=== PATIENT | male | born 1945 | race Caucasian/White ===

== ENCOUNTER → 2016-07-16 | Outpatient (CLI) | payer OTHER, MEDICARE ==
[~2016-07-16] MED LIST: ALFU10TA2 PO; AMLO-110 PO; AVD5 PO
== END ==
LOC: C.LAB 12:15
PROVIDERS: ATTEND Urology
DX: N40.1 Benign prostatic hyperplasia with lower urinary tract symptoms (principal); R35.1 Nocturia

== ENCOUNTER → 2016-11-26 | Outpatient (CLI) | payer OTHER, MEDICARE ==
[~2016-11-26] MED LIST changes: -ALFU10TA2 PO; +ALFU10TA30 PO
--- NOTE | 2016-12-02 16:54 | PULMONARY FUNCTION TEST ---
CLINICAL DATA: 71-year-old male with a height of 71 inches and a weight of [address] Villarreal for evaluation of COPD and dyspnea. The patient smoked for 58 years and also had exposure to hazardous chemicals. Spirometry pre- and post-bronchodilator, lung volumes, and DLCO were performed. FINDINGS: Prebronchodilator spirometry demonstrates mild obstructive airways disease. FVC was 82% of predicted. FEV1 was 74% of predicted. [id number] was 52% of predicted. There was minimal change after inhaled bronchodilator. FVC improved 2% to 85% of predicted. FEV1 improved 4% to 77% of predicted. [id number] improved 3% to 54% of predicted. Lung volumes demonstrate a slight reduction expiratory reserve volume but otherwise a normal residual volume. DLCO is normal at 113% of predicted. IMPRESSION: Mild obstructive airways disease with no significant change after inhaled bronchodilator. Slight reduction in expiratory reserve volume on lung volume testing. Normal DLCO. MTDD
== END | disposition home or self-care (01) ==
LOC: C.RC 10:56
PROVIDERS: ATTEND Internal Medicine Cardiovascular Disease
DX: R06.09 Other forms of dyspnea (principal); J44.9 Chronic obstructive pulmonary disease, unspecified

== ENCOUNTER 2017-04-06 14:57 | Inpatient (IN) | payer OTHER, MEDICARE ==
[~2017-04-06] VITALS: Ht 180.3 cm; Wt 82.3 kg
[~2017-04-06 14:57] MED LIST changes: +ALFU10TA2 PO; -ALFU10TA30 PO; -AMLO-110 PO; +AMLO5TAB3 PO
[2017-04-06] MEDS ORDERED: DILTIAZEM BOLUS / DRIP IV STA ×2 (15:34→19:03)
[2017-04-06] MEDS ORDERED: SODIUM CHLORIDE 0.9% 500ML 500 ML IV STA (15:36)
[2017-04-06 15:47] LABS: BASO % 1.3 %; BASO ABS # 0.12 K/uL (0-0.2); EOS % 2.1 %; EOS ABS # 0.19 K/uL (0-0.5); HEMATOCRIT 50.5 % (42-52); HEMOGLOBIN 17.3 g/dL (14.0-18.0); IG# 0.01 K/uL (0.00-0.02); LYMPH % 26.5 %; LYMPH ABS # 2.37 K/uL (1.2-3.4); MEAN CELL VOLUME 89.1 fL (80-100); MEAN CORPUSCULAR HEMOGLOBIN 30.5 pg (25-34); MEAN CORPUSCULAR HGB CONC 34.3 g/dl (32-36); MEAN PLATELET VOLUME 9.8 fL (7.4-10.4); MONO % 6.1 %; MONO ABS # 0.55 K/uL (0.11-0.59); NEUT % 63.9 %; NEUT ABS # 5.72 K/uL (1.4-6.5); PLATELET COUNT 248 K/uL (130-400); RED CELL DISTRIBUTION WIDTH CV 14.2 % (11.5-14.5); RED CELL DISTRIBUTION WIDTH SD 46.6 fL (36.4-46.3); WHITE BLOOD COUNT 8.96 K/uL (4.8-10.8)
--- NOTE | 2017-04-06 15:53 | DIAGNOSTIC IMAGING REPORT ---
CHEST ONE VIEW PORTABLE HISTORY: 71 years-old Male Chest Pain acute atypical chest pain COMPARISON: Chest and rib radiographs 09/09/2012 TECHNIQUE: Portable upright AP view of the chest FINDINGS: Cardiac silhouette is within normal limits. Left subclavian pacer is noted with leads overlying the right atrium and right ventricle, new from comparison study. There is no pneumothorax, pleural effusion, focal airspace consolidation or overt pulmonary edema. Linear subsegmental opacity of the left lung base is noted. Bones of the chest appear grossly intact. IMPRESSION: Linear subsegmental atelectasis or scarring of the left lung base with otherwise negative chest. The above report was generated using voice recognition software. It may contain grammatical, syntax or spelling errors. Electronically signed by: Edison Holder M.D. 04/06/2017 3:51 PM Dictated Date/Time: 04/06/2017 3:49 PM
[2017-04-06] MEDS ORDERED: DILTIAZEM HCL INJ 125 MG in DEXTROSE 5% 100ML IV PRN (16:00)
[2017-04-06] MEDS ORDERED: DILTIAZEM BOLUS FROM BAG IV ONE (16:00)
[2017-04-06] MEDS ORDERED: DUTA0.5C PO (16:05)
[2017-04-06] MEDS ORDERED: TPRSR/25 PO (16:05)
[2017-04-06] MEDS ORDERED: NIFE30TA83 PO (16:05)
[2017-04-06] MEDS ORDERED: MISCCAP80 PO (16:05)
[2017-04-06 16:08] LABS: BLOOD UREA NITROGEN 28 mg/dl (7-18); CALCIUM 9.4 mg/dl (8.5-10.1); CARBON DIOXIDE 25 mmol/L (21-32); GLUCOSE 103 mg/dl (70-99); POTASSIUM 3.9 mmol/L (3.5-5.1); SODIUM 138 mmol/L (136-145)
[2017-04-06 16:13] LABS: CKMB 1.3 ng/ml (0.5-3.6)
[2017-04-06] MEDS ORDERED: DILTIAZEM HCL 5 MG/ML 5 ML VIAL IV STA (17:47)
[2017-04-06] MEDS ORDERED: ALUMINUM/MAGNESIUM/SIMETH (MAALOX MAX) 30 ML UDC PO PRN (18:15)
[2017-04-06] MEDS ORDERED: MAGNESIUM HYDROXIDE SUSP 30 ML UDC PO PRN (18:15)
[2017-04-06] MEDS ORDERED: ACETAMINOPHEN 325 MG TAB PO PRN (18:15)
[2017-04-06] MEDS ORDERED: ONDANSETRON INJ 2 MG/ML 2 ML VIAL IV PRN (18:15)
[2017-04-06] MEDS ORDERED: POLYETHYLENE (MIRALAX) 17 GM PACK PO PRN (18:15)
--- NOTE | 2017-04-06 19:00 | History and Physical ---
History & Physical Date & Time of Service: Apr 06, 2017 at 18:59 Chief Complaint: Weak, Irregular Heartbeat, Cardiac Hx, Pacemaker Primary Care Physician: Dany Rodriguez M.D. History of Present Illness Source: patient Mr. Ocampo is a 71 y/o male with PMHx of Tachyarrhythmias, Sinus Pause S/P Pacer , and BPH who presents to the ED complaining of an irregular heartbeat x 2 hours prior to arrival. He states he had an achy chest pressure and could tell his heart rate was fast. He felt his pulse and states it seemed very erratic and uses electronic monitor but states he cannot get a pulse rate reading. He does report intermittent tachyarrhythmias that have been ongoing. He states his pulse can get in the 150s but these episodes normally only last a few seconds and spontaneously abort. He denies ever being told he has atrial fibrillation. He states his director life sciences has mentioned implantation of a defibrillator but the patient reports he has been putting this off. He follows with Dr. Villarreal. He reported initial chest discomfort, generalized weakness, and shortness of breath when his heart rate was rapid. He states these are all currently resolved since initiating diltiazem. In the ED, patient was started on diltiazem bolus and drip and did spontaneously convert to sinus rhythm with pacing. Discussed anticoagulation, and he denies any past bleeding episodes or previous use of anticoagulation. Heparin drip was initiated. TSH mildly elevated which may be normal given age. Creatinine is 1.8 with very limited reference labs. No direct source of infection. Electrolytes are within normal limits. Past Medical/Surgical History 1. BPH 2. Sinus Pause S/P Pacer 3. Tachyarrhythmias 4. H/O C. Diff Family History Family history was reviewed; no changes noted. Social History Smoking Status: Current Every Day Smoker Smokeless Tobacco Use: No Alcohol Use: none Drug Use: none Immunizations History of Influenza Vaccine: N/A History of Tetanus Vaccine?: Yes History of Pneumococcal: No History of Hepatitis B Vaccine: No Multi-Drug Resistant Organisms History of MDRO: No Allergies Coded Allergies: No Known Allergies (Verified , 04/06/17) Home Medications Scheduled Alfuzosin Hcl (Uroxatral), 10 MG PO HS Dutasteride (Avodart), 0.5 MG PO QPM Metoprolol Succinate (Metoprolol Succinate ER), 25 MG PO QPM Nifedipine Ext Rel (Procardia Xl Ext Rel), 30 MG PO QPM Probiotic Product (Probiotic), 1 CAP PO DAILY Review of Systems Constitutional: No fever, No chills ENT: No nasal symptoms Respiratory: + shortness of breath (RESOLVED), No cough, No wheezing Cardiovascular: + chest pain (pressure/ache and central chest - currently resolved), + palpitations, No orthopnea Abdomen: No pain, No nausea, No vomiting, No diarrhea, No constipation Musculoskeletal: No swelling, No calf pain Genitourinary - Male: No dysuria Hematologic / Lymphatic: No abnormal bleeding/bruising Physical Exam Vital Signs Date Time Temp Pulse Resp B/P (MAP) Pulse Ox O2 Delivery O2 Flow Rate FiO2 04/06/17 18:36 97 28 98 04/06/17 18:31 101 20 137/106 97 04/06/17 18:26 89 18 96 04/06/17 18:21 100 21 96 04/06/17 18:16 99 21 113/77 95 04/06/17 18:11 113 20 93 04/06/17 18:06 98 18 95 04/06/17 18:01 95 20 102/68 95 Room Air 04/06/17 17:56 106 21 97 04/06/17 17:51 107 18 95 04/06/17 17:46 113 16 117/89 96 04/06/17 17:41 105 24 96 04/06/17 17:36 111 20 95 04/06/17 17:31 108 21 159/137 96 04/06/17 17:26 88 19 96 04/06/17 17:21 107 15 97 04/06/17 17:16 100 16 126/69 95 04/06/17 17:11 95 20 95 04/06/17 17:06 101 15 95 04/06/17 17:01 90 15 86/70 94 04/06/17 16:56 104 16 94 04/06/17 16:51 116 19 95 04/06/17 16:46 145/69 04/06/17 16:45 105 16 94 04/06/17 16:40 115 16 96 04/06/17 16:35 109 18 94 04/06/17 16:31 98/71 04/06/17 16:30 110 22 97 04/06/17 16:20 104 26 95 04/06/17 16:16 129/80 04/06/17 16:15 115 19 95 04/06/17 16:10 120 18 90 04/06/17 16:06 130 26 153/93 95 Room Air 04/06/17 15:30 153 19 146/88 97 Room Air 04/06/17 15:19 166 04/06/17 15:15 97 Room Air 04/06/17 15:15 97 Room Air 04/06/17 15:06 156 24 181/106 98 Room Air General Appearance: WD/WN, no apparent distress Head: normocephalic, atraumatic Eyes: sclerae normal ENT: hearing grossly normal Neck: supple, no JVD, trachea midline Respiratory/Chest: lungs clear, normal breath sounds, no respiratory distress, no accessory muscle use Cardiovascular: no gallop, no murmur, + irregularly irregular Abdomen/GI: normal bowel sounds, non tender, soft Extremities/Musculoskelatal: no calf tenderness, no pedal edema Neurologic/Psych: alert, oriented x 3 Skin: normal color, warm/dry Diagnostics Laboratory Results Results Past 24 Hours Test 04/06/17 15:20 Range/Units White Blood Count 8.96 4.8-10.8 K/uL Red Blood Count 5.67 4.7-6.1 M/uL Hemoglobin 17.3 14.0-18.0 g/dL Hematocrit 50.5 42-52 % Mean Corpuscular Volume 89.1 80-100 fL Mean Corpuscular Hemoglobin 30.5 25-34 pg Mean Corpuscular Hemoglobin Concent 34.3 32-36 g/dl Platelet Count 248 130-400 K/uL Mean Platelet Volume 9.8 7.4-10.4 fL Neutrophils (%) (Auto) 63.9 % Lymphocytes (%) (Auto) 26.5 % Monocytes (%) (Auto) 6.1 % Eosinophils (%) (Auto) 2.1 % Basophils (%) (Auto) 1.3 % Neutrophils # (Auto) 5.72 1.4-6.5 K/uL Lymphocytes # (Auto) 2.37 1.2-3.4 K/uL Monocytes # (Auto) 0.55 0.11-0.59 K/uL Eosinophils # (Auto) 0.19 0-0.5 K/uL Basophils # (Auto) 0.12 0-0.2 K/uL RDW Standard Deviation 46.6 36.4-46.3 fL RDW Coefficient of Variation 14.2 11.5-14.5 % Immature Granulocyte % (Auto) 0.1 % Immature Granulocyte # (Auto) 0.01 0.00-0.02 K/uL Sodium Level 138 136-145 mmol/L Potassium Level 3.9 3.5-5.1 mmol/L Chloride Level 105 98-107 mmol/L Carbon Dioxide Level 25 21-32 mmol/L Anion Gap 8.0 3-11 mmol/L Blood Urea Nitrogen 28 7-18 mg/dl Creatinine 1.80 0.60-1.40 mg/dl Est Creatinine Clear Calc Drug Dose 42.2 ml/min Estimated GFR () 42.3 Estimated GFR (Non- 36.5 BUN/Creatinine Ratio 15.5 10-20 Random Glucose 103 70-99 mg/dl Calcium Level 9.4 8.5-10.1 mg/dl Total Creatine Kinase 85 39-308 U/L Creatine Kinase MB 1.3 0.5-3.6 ng/ml Creatine Kinase MB Ratio 1.5 0-3.0 Troponin I < 0.015 0-0.045 ng/ml Diagnostic Radiology CHEST ONE VIEW PORTABLE FINDINGS: Cardiac silhouette is within normal limits. Left subclavian pacer is noted with leads overlying the right atrium and right ventricle, new from comparison study. There is no pneumothorax, pleural effusion, focal airspace consolidation or overt pulmonary edema. Linear subsegmental opacity of the left lung base is noted. Bones of the chest appear grossly intact. IMPRESSION: Linear subsegmental atelectasis or scarring of the left lung base with otherwise negative chest. EKG Atrial fibrillation with rapid ventricular response Septal infarct , age undetermined Abnormal ECG When compared with ECG of 15-AUG-2009 09:58, Atrial fibrillation has replaced Sinus rhythm Vent. rate has increased BY 81 BPM Septal infarct is now Present ST now depressed in Inferior leads ST now depressed in Anterolateral leads T wave inversion now evident in Lateral leads Impression Assessment and Plan Mr. Ocampo is a 71 y/o male with PMHx of Tachyarrhythmias, Sinus Pause S/P Pacer , and BPH who presents to the ED complaining of an irregular heartbeat x 2 hours prior to arrival. Found to be in Atrial Fibrillation. Possible New Onset Atrial Fibrillation: - He reports intermittent tachyarrhythmias with rates going as high as 150 but normally self abort - follows with Dr. Villarreal and does have pacemaker in place - could consider pacemaker interrogation in the AM - Admit to telemetry for rhythm monitoring and trend cardiac enzymes - He was initially placed on diltiazem bolus/drip and did ultimately converted to sinus rhythm with pacing - Will hold nifedipine and place him on diltiazem ER 120 mg daily with hold parameters - Started heparin drip - uncertain if his tachyarrhythmias were atrial fibrillation versus other rhythm - likely could be placed on NOAC - Obtain updated echo - Consult cardiology - appreciate recommendations and further intervention Possible STEPHANIE: - Limited reference labs for comparison - fluids given in ED and will continue to have fluids ran with heparin - Continue to monitor with BMP in the AM - if necessary could add further fluids BPH: - Alfuzosin 10 mg daily and Avodart 0.5 mg daily DVT Prophylaxis: Heparin drip Code Status: Full resuscitation Disposition: - Appreciate further intervention by cardiology - possible DC next 1-2 days - Possible good candidate for NOAC - would need insurance evaluation for cost I personally interviewed and examined the patient. I agree with history of present illness and physical exam mentioned above, I also performed my own history taking and examination. Past medical history and review of system has been obtained by myself I reviewed all pertinent labs and studies Reviewed current medications I discussed and formulated of the assessment and plan mentioned above as per discussion with Yasmin TIGRE Please refer to the Summary mentioned below. 71 years old man presented to the ED with palpitations, was found to have atrial fibrillation new onset Started on Cardizem drip and heparin drip Shortly converted to sinus rhythm General Appearance: not in acute distress Eyes: normal Sclerae, extraocular muscle intact ENT: hearing grossly normal Neck: supple Respiratory/Chest: normal air entry especially bilateral ,no respiratory distress, no accessory muscle use Cardiovascular: Irregular irregularity, no systolic murmur Abdomen: non tender, soft, no masses Extremities: no edema Neurologic/Psychiatric: Awake alert oriented times place and person moves all extremities sensation intact cranial nerves II-12 appear to be intact Skin: normal color, warm/dry, no rash Rudolph Guerin MD, [facility] Level of Care Telemetry Resuscitation Status FULL RESUSCITATION VTE Prophylaxis VTE Risk Assessment Done? Y/N: Yes Risk Level: Moderate Given or contraindicated: Other Anticoagulation (Heparin gtt)
[2017-04-06] MEDS ORDERED: METOPROLOL TARTRATE 1 MG/ML VIAL IV PRN (19:15)
[2017-04-06] MEDS ORDERED: AVODART~ORDER AWAITING ACTION SCH (20:00)
[2017-04-06 20:53] LABS: PTT PATIENT 28.2 SECONDS (21.0-31.0)
[2017-04-06] MEDS ORDERED: ALFUZosin TAB 10 MG TAB PO SCH (21:00)
[2017-04-06] MEDS ORDERED: DUTASTERIDE 0.5MG PO SCH (21:00)
[2017-04-06] MEDS ORDERED: METOPROLOL SUCC 25MG EXT REL TAB PO SCH (21:00)
[2017-04-06] MEDS ORDERED: HEPARIN IV BOLUS 7,000 UNIT in SYRINGE 0 ML IV ONE (21:15)
[2017-04-06 21:40] VITALS: BP 121/77; PULSE 64; TEMP 36.9; O2SAT 95; Ht 180.3 cm; Wt 82.3 kg
--- NOTE | 2017-04-06 21:40 | NUR ---
A/ID: Patient admitted into 240-2 from ER for new onset AFIB. and daughter present in room. He is AAOx4, pleasant and cooperative. He is denying any complaints or symptoms at this time. VSS. Paced with HR in 60s. Lungs are clear on room air. No chest pain or palpitations. No edema. Tolerating diet. Urinal at bedside. Ambulates with a steady gait, states he walks 2 hours a day. IV intact and patent. No skin issues noted. Patient oriented to the room and call [facility] and was instructed not to get up without staff present. Patient and family updated on plans for the night including labs and vitals. They were educated on all new medications. He was instructed to use call [facility] immediately of any returning symptoms. Patient lives at home with , very active. No D/C needs identified at this time.
[2017-04-06 21:42] VITALS: O2SAT 94
--- NOTE | 2017-04-06 22:22 | EMERGENCY ROOM VISIT NOTE ---
History Report prepared by Luis Armandoibgiancarlo: Justina Grajeda Under the Supervision of: Dr. Tony Mays D.O. First contact with patient: 15:19 Chief Complaint: IRREGULAR HEARTBEAT Stated Complaint: WEAK, IRREGULAR HEARTBEAT, CARDIAC HX, PACEMAKER History of Present Illness The patient is a 71 year old male who presents to the Emergency Room with complaints of constant irregular heartbeat for 1.5 hours. The patient states that he has had before, but it usually goes away in a minute. He states that he has a pacemaker placed, but not defibrillator. He states that it was originally placed for his heart pausing. The patient states that he checked his pulse on the blood pressure machine he has at home and it wouldn't even read it. The patient complains of some weakness and a little shortness of breath occurring right before he came in. The patient denies headache, chest pain, nausea, vomiting, diarrhea, cough, congestion, and fatigue. He denies ever knowing that he has had atrial fibrillation or atrial flutter. He notes that he felt normal when he woke up this morning. He notes that he does take a beta karma. Source of History: patient Onset: 1.5 hours ago Position: other (global) Quality: other (fast) Timing: constant Associated Symptoms: + SOB, + weakness, No headache, No cough, No chest pain , No nausea, No vomiting, No diarrhea, No fatigue Note: The patient denies congestion. Review of Systems See HPI for pertinent positives & negatives. A total of 10 systems reviewed and were otherwise negative. Past Medical & Surgical Medical Problems: (1) Atrial fibrillation with RVR (2) Hx of cardiac pacemaker Family History No pertinent family history Social History Smoking Status: Current Every Day Smoker Marital Status: Housing Status: lives with significant other Occupation Status: retired Current/Historical Medications Scheduled Alfuzosin Hcl (Uroxatral), 10 MG PO HS Dutasteride (Avodart), 0.5 MG PO QPM Metoprolol Succinate (Metoprolol Succinate ER), 25 MG PO QPM Nifedipine Ext Rel (Procardia Xl Ext Rel), 30 MG PO QPM Probiotic Product (Probiotic), 1 CAP PO DAILY Allergies Coded Allergies: No Known Allergies (Verified , 04/06/17) Physical Exam Vital Signs Date Time Temp Pulse Resp B/P (MAP) Pulse Ox O2 Delivery O2 Flow Rate FiO2 04/06/17 18:41 108 24 98 18 18:36 97 28 98 18 18:31 101 20 137/106 97 18 18:26 89 18 96 04/06/17 18:21 100 21 96 18 18:16 99 21 113/77 95 04/06/17 18:11 113 20 93 18 18:06 98 18 95 04/06/17 18:01 95 20 102/68 95 Room Air 04/06/17 17:56 106 21 97 04/06/17 17:51 107 18 95 04/06/17 17:46 113 16 117/89 96 04/06/17 17:41 105 24 96 04/06/17 17:36 111 20 95 04/06/17 17:31 108 21 159/137 96 04/06/17 17:26 88 19 96 04/06/17 17:21 107 15 97 04/06/17 17:16 100 16 126/69 95 04/06/17 17:11 95 20 95 04/06/17 17:06 101 15 95 04/06/17 17:01 90 15 86/70 94 04/06/17 16:56 104 16 94 04/06/17 16:51 116 19 95 04/06/17 16:46 145/69 04/06/17 16:45 105 16 94 04/06/17 16:40 115 16 96 04/06/17 16:35 109 18 94 04/06/17 16:31 98/71 04/06/17 16:30 110 22 97 04/06/17 16:20 104 26 95 04/06/17 16:16 129/80 04/06/17 16:15 115 19 95 04/06/17 16:10 120 18 90 04/06/17 16:06 130 26 153/93 95 Room Air 04/06/17 15:30 153 19 146/88 97 Room Air 04/06/17 15:19 166 04/06/17 15:15 97 Room Air 04/06/17 15:15 97 Room Air 04/06/17 15:06 156 24 181/106 98 Room Air Physical Exam GENERAL: Sitting up in bed, alert, well appearing, well nourished, no distress, non-toxic EYE EXAM: normal conjunctiva. OROPHARYNX: no exudate, no erythema, lips, buccal mucosa, and tongue normal and mucous membranes are moist NECK: supple, no nuchal rigidity, no adenopathy, non-tender LUNGS: Clear to auscultation. Normal chest wall mechanics HEART: no murmurs, tachycardic, irregularly irregular. ABDOMEN: abdomen soft, non-tender, normo-active bowel sounds, no masses, no rebound or guarding. BACK: Back is symmetrical on inspection and there is no deformity, no midline tenderness, no CVA tenderness. SKIN: no rashes and no bruising UPPER EXTREMITIES: upper extremities are grossly normal. LOWER EXTREMITIES: No pitting edema. Calves are equal bilaterally. NEURO EXAM: Normal sensorium, cranial nerves II-XII grossly intact, normal speech, no gross weakness of arms, no gross weakness of legs. Medical Decision & Procedures ER Provider Diagnostic Interpretation: Radiology results as stated below per my review and the radiologist's interpretation: CHEST ONE VIEW PORTABLE HISTORY: 71 years-old Male Chest Pain acute atypical chest pain COMPARISON: Chest and rib radiographs 09/09/2012 TECHNIQUE: Portable upright AP view of the chest FINDINGS: Cardiac silhouette is within normal limits. Left subclavian pacer is noted with leads overlying the right atrium and right ventricle, new from comparison study. There is no pneumothorax, pleural effusion, focal airspace consolidation or overt pulmonary edema. Linear subsegmental opacity of the left lung base is noted. Bones of the chest appear grossly intact. IMPRESSION: Linear subsegmental atelectasis or scarring of the left lung base with otherwise negative chest. The above report was generated using voice recognition software. It may contain grammatical, syntax or spelling errors. Electronically signed by: Edison Holder M.D. 04/06/2017 3:51 PM Dictated Date/Time: 04/06/2017 3:49 PM Laboratory Results 04/06/17 15:20 Red Blood Count 5.67, Mean Corpuscular Volume 89.1, Mean Corpuscular Hemoglobin 30.5, Mean Corpuscular Hemoglobin Concent 34.3, Mean Platelet Volume 9.8, Neutrophils (%) (Auto) 63.9, Lymphocytes (%) (Auto) 26.5, Monocytes (%) (Auto) 6.1, Eosinophils (%) (Auto) 2.1, Basophils (%) (Auto) 1.3, Neutrophils # (Auto) 5.72, Lymphocytes # (Auto) 2.37, Monocytes # (Auto) 0.55, Eosinophils # (Auto) 0.19, Basophils # (Auto) 0.12 04/06/17 15:20 Test 04/06/17 15:20 White Blood Count 8.96 K/uL (4.8-10.8) Red Blood Count 5.67 M/uL (4.7-6.1) Hemoglobin 17.3 g/dL (14.0-18.0) Hematocrit 50.5 % (42-52) Mean Corpuscular Volume 89.1 fL (80-100) Mean Corpuscular Hemoglobin 30.5 pg (25-34) Mean Corpuscular Hemoglobin Concent 34.3 g/dl (32-36) Platelet Count 248 K/uL (130-400) Mean Platelet Volume 9.8 fL (7.4-10.4) Neutrophils (%) (Auto) 63.9 % Lymphocytes (%) (Auto) 26.5 % Monocytes (%) (Auto) 6.1 % Eosinophils (%) (Auto) 2.1 % Basophils (%) (Auto) 1.3 % Neutrophils # (Auto) 5.72 K/uL (1.4-6.5) Lymphocytes # (Auto) 2.37 K/uL (1.2-3.4) Monocytes # (Auto) 0.55 K/uL (0.11-0.59) Eosinophils # (Auto) 0.19 K/uL (0-0.5) Basophils # (Auto) 0.12 K/uL (0-0.2) RDW Standard Deviation 46.6 fL (36.4-46.3) RDW Coefficient of Variation 14.2 % (11.5-14.5) Immature Granulocyte % (Auto) 0.1 % Immature Granulocyte # (Auto) 0.01 K/uL (0.00-0.02) Activated Partial Thromboplast Time 28.2 SECONDS (21.0-31.0) Partial Thromboplastin Ratio 1.1 Anion Gap 8.0 mmol/L (3-11) Est Creatinine Clear Calc Drug Dose 42.2 ml/min Estimated GFR () 42.3 Estimated GFR (Non- 36.5 BUN/Creatinine Ratio 15.5 (10-20) Calcium Level 9.4 mg/dl (8.5-10.1) Total Creatine Kinase 85 U/L (39-308) Creatine Kinase MB 1.3 ng/ml (0.5-3.6) Creatine Kinase MB Ratio 1.5 (0-3.0) Thyroid Stimulating Hormone (TSH) 5.090 uIu/ml (0.300-4.500) Laboratory results per my review. Medications Administered Medications (Trade) Dose Ordered Sig/Henry Route Start Time Stop Time Status Last Admin Dose Admin Sodium Chloride 500 ml @ 999 mls/hr Q31M STAT IV 04/06/17 15:36 04/06/17 16:06 DC 04/06/17 16:00 999 MLS/HR Diltiazem HCl (Cardizem Bolus From Bag) 15 mg ONE ONCE IV 04/06/17 16:00 04/06/17 16:01 DC 04/06/17 16:00 15 MG Diltiazem HCl 125 mg/Dextrose 125 ml @ 0 mls/hr Q0M PRN IV 04/06/17 16:00 05/06/17 15:59 04/06/17 16:04 5 MLS/HR Diltiazem HCl (Cardizem Inj) 10 mg NOW STAT IV 04/06/17 17:47 04/06/17 17:49 DC 04/06/17 17:56 10 MG ECG Indication: tachycardia Rate (beats per minute): 143 Rhythm: atrial fibrillation (with RVR) Findings: Q waves (Septal), ST depression (Lateral), other (normal axis) ED Course ED COURSE: Vital signs were reviewed and showed tachycardic The patients medical record was reviewed The above diagnostic studies were performed and reviewed. ED treatments and interventions as stated above. 1526: The patient was evaluated in room B4B. A complete history and physical examination was performed. 1534: Ordered Diltiazem HCl 1 ea IV. 1536: Ordered NSS 500 ml @ 999 mls/hr IV. 1600: Ordered Diltiazem HCl 125 mg/Dextrose 125 ml @ 0 mls/hr Protocol PRN IV titration, Diltiazem HCl 15 mg IV. 1645: Upon reevaluation, the patient is doing well.I discussed my findings with the patient and he understands and agrees with the treatment plan. 1650: I reviewed the patient's case with Dr. Medeiros. He will evaluate the patient for further management. 174: Ordered Diltiazem HCl 10 mg IV. Based on the patients age, coexisting illnesses, exam and lab findings the decision to treat as an inpatient was made. The patient remained stable while under my care. The patient will be evaluated for further management. Medical Decision Differential diagnoses includes but is not limited to acute coronary syndrome, myocardial infarction, pericarditis, pulmonary embolus, aortic dissection, pneumonia, pneumothorax, musculoskeletal, shingles, esophageal. Patient is a 71-year-old male who presents to ER for feeling very weak and so a short of breath. He notes he feels his heart racing. On exam he is tachycardic. Heart rates in the 150s. Systolic blood pressures were in the 190s. EKG shows A. fib with RVR and ST depressions in the lateral leads. Patient had no other complaints. He was given Cardizem bolus 10 mg IV and a drip started at 5 mg. Heart rate trended up to low 100s. Patient was monitored closely for close to 3 hours. His heart rate did trend back up and was given another dose of IV Cardizem 10 mg. CBC along with the MP shows a creatinine 1.8. Troponin was negative. TSH was slightly elevated. INR was normal. Chest x-ray unremarkable. Patient was updated at bedside and he was admitted to internal medicine for A. fib with RVR any rate control following 2 Cardizem boluses and drip. Medication Reconcilliation Current Medication List: was personally reviewed by me Blood Pressure Screening Patient's blood pressure: Normal blood pressure Blood pressure disposition: Did not require urgent referral Consults Time Called: 164 Consulting Physician: Dr. Medeiros Returned Call: 1650 I reviewed the patient's case with Dr. Medeiros. He will evaluate the patient for further management. Impression Primary Impression: Atrial fibrillation with RVR Critical Care I have personally spent 75 minutes of critical care time in the direct management of this patient. This includes bedside care, interpretation of diagnostic studies, and testing, discussion with consultants, patient, and family members, and other required patient management activities. This 75 minutes is in excess of all separately billable procedures. Scribe Attestation The scribe's documentation has been prepared under my direction and personally reviewed by me in its entirety. I confirm that the note above accurately reflects all work, treatment, procedures, and medical decision making performed by me. Departure Information Dispostion Being Evaluated By Hospitalist Referrals Dany Rodriguez M.D. (PCP) Patient Instructions My [facility]
[2017-04-06] MEDS: HEPARIN 25,000 UNIT/500ML D5W 500 ML IV PRN (22:27)
--- NOTE | 2017-04-06 22:47 | NUR ---
Home dose of Avodart sent to pharmacy via secure code of [id number]. Patient is aware of this.
--- NOTE | 2017-04-06 22:51 | NUR ---
Amie Hoffman aware that patient has remained Paced in 60s since arrival from ER. She will d/c drip and place on oral diltiazem for the morning.
--- NOTE | 2017-04-06 23:56 | NUR ---
Home supply of Avodart placed in locked medicine cabinet in room. Patient is aware.
[2017-04-06 23:59] VITALS: BP 123/65; PULSE 60; TEMP 36.7; O2SAT 92
[2017-04-07 03:15] VITALS: BP 134/71; PULSE 61; TEMP 36.6; O2SAT 95
[2017-04-07 03:53] LABS: BASO % 1.3 %; BASO ABS # 0.12 K/uL (0-0.2); EOS % 3.7 %; EOS ABS # 0.33 K/uL (0-0.5); HEMATOCRIT 40.8 % (42-52); HEMOGLOBIN 13.9 g/dL (14.0-18.0); IG# 0.01 K/uL (0.00-0.02); LYMPH % 47.4 %; LYMPH ABS # 4.28 K/uL (1.2-3.4); MEAN CELL VOLUME 90.1 fL (80-100); MEAN CORPUSCULAR HEMOGLOBIN 30.7 pg (25-34); MEAN CORPUSCULAR HGB CONC 34.1 g/dl (32-36); MEAN PLATELET VOLUME 9.5 fL (7.4-10.4); MONO ABS # 0.54 K/uL (0.11-0.59); NEUT % 41.5 %; NEUT ABS # 3.75 K/uL (1.4-6.5); PLATELET COUNT 207 K/uL (130-400); RED CELL DISTRIBUTION WIDTH CV 14.4 % (11.5-14.5); RED CELL DISTRIBUTION WIDTH SD 47.3 fL (36.4-46.3); WHITE BLOOD COUNT 9.03 K/uL (4.8-10.8)
--- NOTE | 2017-04-07 04:00 | NUR ---
A. Patient reassessed, resting in bed. No changes at this time. He is denying any needs or complaints. VSS. Paced with HR in 60s. Voiding in urinal. Repositioning on own. IV intact with Heparin infusing. He was reminded to use call [facility] if needing anything.
[2017-04-07 04:09] LABS: CALCIUM 8.2 mg/dl (8.5-10.1); CREATININE 1.36 mg/dl (0.60-1.40); POTASSIUM 4.2 mmol/L (3.5-5.1)
[2017-04-07 04:14] LABS: PTT PATIENT 111.9 SECONDS (21.0-31.0)
[2017-04-07] MEDS: HEPARIN 25,000 UNIT/500ML D5W 500 ML IV PRN (05:16)
[2017-04-07 07:38] VITALS: BP 130/66; PULSE 59; TEMP 36.5; O2SAT 95
--- NOTE | 2017-04-07 08:00 | NUR ---
A: denies pain. c/o nausea, states it is not unusual for him to have nausea in the mornings. see Emar for Zofran administration. did consume 100% breakfast. IV Heparin infusing at 24ml/hr via 20 jelco right FA, site clear. 18 jelco intact RAC, site clear. denies difficulty voiding.
[2017-04-07] MEDS ORDERED: LACTOBACILLUS ACIDOPHILUS (FLORANEX) TAB PO SCH (09:00)
[2017-04-07] MEDS ORDERED: DILTIAZEM HCL 120 MG ER CAP PO SCH (09:00)
--- NOTE | 2017-04-07 09:10 | NUR ---
A: states nausea resolved. off floor via wheelchair for echo.
[2017-04-07 09:17] VITALS: BP 130/66; PULSE 59; TEMP 36.5; O2SAT 95
--- NOTE | 2017-04-07 10:15 | NUR ---
A: returned from echo.
[2017-04-07 11:13] VITALS: BP 117/55; PULSE 61; TEMP 36.6; O2SAT 95
--- NOTE | 2017-04-07 11:56 | ECHOCARDIOGRAM REPORT ---
*NOTICE TO RECEIVING CONSTITUTION PARTY AGENCY This information is strictly Confidential and protected under [place] law. [place] law prohibits you from making any further disclosure of this information unless further disclosure is expressly permitted by the written consent of the person to whom it pertains or is authorized by law. A general authorization for the release of medical or other information is not sufficient for this purpose. Hospital accepts no responsibility if the information is made available to any other person, INCLUDING THE PATIENT. Interpretation Summary * Name: TUTU AMOR Study Date: 04/07/2017 09:24 AM BP: 130/66 mmHg * Patient Location: [facility] HR: 60 * : 1945 (M/d/yyyy) Gender: Male Height: 71 in * Age: 71 yrs Ethnicity: [place] Weight: 201 lb * Ordering Physician: Amie Hoffman * Referring Physician: Srinivasan Villarreal * Performed By: Karen Martinez RCS * * Reason For Study: A-FIB * BSA: 2.1 m2 * -- Conclusions -- * There is borderline concentric left ventricular hypertrophy. * Left ventricular systolic function is normal. * Diastolic dysfunction, Grade II, consistent with elevated left atrial pressure. * Borderline left atrial enlargement. * Mild aortic regurgitation. * There is mild mitral regurgitation. * Right ventricular systolic pressure is normal. Procedure Details * A complete two-dimensional transthoracic echocardiogram was performed (2D, M-mode, Doppler and color flow Doppler). Left Ventricle * The left ventricle is normal in size. * There is borderline concentric left ventricular hypertrophy. * Left ventricular systolic function is normal. * Diastolic dysfunction, Grade II, consistent with elevated left atrial pressure. * The left ventricular wall motion is normal. Right Ventricle * The right ventricle is normal in size and function. Atria * Borderline left atrial enlargement. * Right atrial size is normal. Mitral Valve * The mitral valve leaflets appear thickened, but open well. * There is mild mitral regurgitation. Tricuspid Valve * The tricuspid valve is not well visualized, but is grossly normal. * There is trace tricuspid regurgitation. * Right ventricular systolic pressure is normal. Aortic Valve * The aortic valve is normal in structure and function. * The aortic valve is trileaflet. * There is some calcification involving the non coronary cusp * Mild aortic regurgitation. * There is an eccentric jet of aortic insufficiency directed against the anterior mitral leaflet. Great Vessels * The aortic root is normal size. Pericardium/Pleural * There is no pericardial effusion. Great Vessels * Normal inferior vena cava diameter and respiratory variation suggests normal central venous pressure. MMode 2D Measurements and Calculations IVSd 1.4 cm IVSs 1.9 cm LVIDd 5.1 cm LVIDs 3.4 cm LVPWd 1.2 cm LVPWs 1.7 cm IVS/LVPW 1.2 FS 34.2 % EDV(Teich) 125.9 ml ESV(Teich) 46.8 ml EF(Teich) 62.8 % EDV(cubed) 135.5 ml ESV(cubed) 38.6 ml EF(cubed) 71.5 % % IVS thick 36.2 % % LVPW thick 49.1 % LV mass(C)d 266.4 grams LV mass(C)dI 126.1 grams/m\S\2 LV mass(C)s 255.1 grams LV mass(C)sI 120.7 grams/m\S\2 SV(Teich) 79.1 ml SI(Teich) 37.4 ml/m\S\2 SV(cubed) 96.9 ml SI(cubed) 45.8 ml/m\S\2 Ao root diam 3.4 cm Ao root area 8.9 cm\S\2 LA dimension 3.7 cm LA/Ao 1.1 LVOT diam 2.0 cm LVOT area 3.2 cm\S\2 LVAd ap4 33.3 cm\S\2 LVLd ap4 7.9 cm EDV(MOD-sp4) 114.7 ml EDV(sp4-el) 120.0 ml LVAs ap4 20.1 cm\S\2 LVLs ap4 6.8 cm ESV(MOD-sp4) 49.2 ml ESV(sp4-el) 50.1 ml EF(MOD-sp4) 57.1 % EF(sp4-el) 58.3 % LVAd ap2 35.7 cm\S\2 LVLd ap2 8.2 cm EDV(MOD-sp2) 130.1 ml EDV(sp2-el) 132.8 ml LVAs ap2 23.1 cm\S\2 LVLs ap2 7.1 cm ESV(MOD-sp2) 64.3 ml ESV(sp2-el) 64.2 ml EF(MOD-sp2) 50.6 % EF(sp2-el) 51.7 % LVLd %diff 3.7 % EDV(MOD-bp) 123.9 ml LVLs %diff 3.3 % ESV(MOD-bp) 55.9 ml EF(MOD-bp) 54.9 % SV(MOD-sp4) 65.5 ml SI(MOD-sp4) 31.0 ml/m\S\2 SV(MOD-sp2) 65.8 ml SI(MOD-sp2) 31.1 ml/m\S\2 SV(MOD-bp) 68.0 ml SI(MOD-bp) 32.2 ml/m\S\2 SV(sp4-el) 69.9 ml SI(sp4-el) 33.1 ml/m\S\2 SV(sp2-el) 68.6 ml SI(sp2-el) 32.5 ml/m\S\2 Doppler Measurements and Calculations MV E max ariel 65.0 cm/sec MV A max ariel 62.8 cm/sec MV E/A 1.0 MV P1/2t max ariel 69.0 cm/sec MV P1/2t 105.8 msec MVA(P1/2t) 2.1 cm\S\2 MV dec slope 191.0 cm/sec\S\2 MV dec time 0.34 sec Ao V2 max 117.4 cm/sec Ao max PG 5.5 mmHg Ao max PG (full) 2.8 mmHg KEVIN(V,A) 2.2 cm\S\2 KEVIN(V,D) 2.2 cm\S\2 LV V1 max PG 2.7 mmHg LV V1 max 82.0 cm/sec PA V2 max 48.3 cm/sec PA max PG 0.93 mmHg PI max ariel 132.9 cm/sec PI max PG 7.1 mmHg PI dec slope 96.4 cm/sec\S\2 PI P1/2t 403.5 msec TR max ariel 257.8 cm/sec
--- NOTE | 2017-04-07 12:00 | NUR ---
A: denies compaints at present. consumed 100% lunch. Heparin infusing at 24ml/hr, site clear right FA. saline lock intact RAC, site clear. voiding without difficulty. assessment unchanged.
[2017-04-07 12:23] LABS: PTT PATIENT 48.8 SECONDS (21.0-31.0)
--- NOTE | 2017-04-07 12:41 | NUR ---
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 The pharmacist tells me the pt has a $405 annual deductible so for the first month the Xarelto would cost $386 and the Eliquis would cost $407. He is unable to tell me the monthly copay without the deductible. I call [employer] at w/ ID # [id number] and the rep tells me that the monthly copay cost, without the deductible, for the Xarelto is $77/month and Eliquis is $96/month. Addendum: 04/07/17 at 1306 by Giselle Kaiser SERV DC info added to the DC instructions - "Please, follow up at Dr. Rodriguez's office with his associate, Dr. Choudhury, on WednesdayApril 16 at 9:50 am. *If you need to reschedule this appointment, you can call their office at [phone]. Please, follow up at Dr. Villarreal's office - cardiology. The nurse will be calling you directly to schedule this appointment. *If you have any questions, you can call his office at [phone]." I called Dr. Villarreal's office and explained about the hospitalization, a-fib, and Xarelto. I requested a follow up appt within the next 2 weeks. The stamping die maker bench is going to talk w/ Dr. Villarreal and then call the pt directly w/ the appt details.
--- NOTE | 2017-04-07 12:46 | ECHOCARDIOGRAM REPORT ---
*NOTICE TO RECEIVING DEMOCRAT AGENCY This information is strictly Confidential and protected under [place] law. [place] law prohibits you from making any further disclosure of this information unless further disclosure is expressly permitted by the written consent of the person to whom it pertains or is authorized by law. A general authorization for the release of medical or other information is not sufficient for this purpose. Hospital accepts no responsibility if the information is made available to any other person, INCLUDING THE PATIENT. Interpretation Summary * Name: TUTU AMOR Study Date: 04/07/2017 09:24 AM BP: 130/66 mmHg * Patient Location: [email or web address] HR: 60 * : 1945 (M/d/yyyy) Gender: Male Height: 71 in * Age: 71 yrs Ethnicity: [place] Weight: 201 lb * Ordering Physician: Amie Hoffman * Referring Physician: Srinivasan Villarreal * Performed By: Karen Martinez RCS * * Reason For Study: A-FIB * BSA: 2.1 m2 * -- Conclusions -- * There is borderline concentric left ventricular hypertrophy. * Left ventricular systolic function is normal. * Diastolic dysfunction, Grade II, consistent with elevated left atrial pressure. * Borderline left atrial enlargement. * Mild aortic regurgitation. * There is mild mitral regurgitation. * Right ventricular systolic pressure is normal. Procedure Details * A complete two-dimensional transthoracic echocardiogram was performed (2D, M-mode, Doppler and color flow Doppler). Left Ventricle * The left ventricle is normal in size. * There is borderline concentric left ventricular hypertrophy. * Left ventricular systolic function is normal. * Diastolic dysfunction, Grade II, consistent with elevated left atrial pressure. * The left ventricular wall motion is normal. Right Ventricle * The right ventricle is normal in size and function. Atria * Borderline left atrial enlargement. * Right atrial size is normal. * There is a catheter/pacemaker lead seen in the right atrium. Mitral Valve * The mitral valve leaflets appear thickened, but open well. * There is mild mitral regurgitation. Tricuspid Valve * The tricuspid valve is not well visualized, but is grossly normal. * There is trace tricuspid regurgitation. * Right ventricular systolic pressure is normal. Aortic Valve * The aortic valve is normal in structure and function. * The aortic valve is trileaflet. * There is some calcification involving the non coronary cusp * Mild aortic regurgitation. * There is an eccentric jet of aortic insufficiency directed against the anterior mitral leaflet. Great Vessels * The aortic root is normal size. Pericardium/Pleural * There is no pericardial effusion. Great Vessels * Normal inferior vena cava diameter and respiratory variation suggests normal central venous pressure. MMode 2D Measurements and Calculations IVSd 1.4 cm IVSs 1.9 cm LVIDd 5.1 cm LVIDs 3.4 cm LVPWd 1.2 cm LVPWs 1.7 cm IVS/LVPW 1.2 FS 34.2 % EDV(Teich) 125.9 ml ESV(Teich) 46.8 ml EF(Teich) 62.8 % EDV(cubed) 135.5 ml ESV(cubed) 38.6 ml EF(cubed) 71.5 % % IVS thick 36.2 % % LVPW thick 49.1 % LV mass(C)d 266.4 grams LV mass(C)dI 126.1 grams/m\S\2 LV mass(C)s 255.1 grams LV mass(C)sI 120.7 grams/m\S\2 SV(Teich) 79.1 ml SI(Teich) 37.4 ml/m\S\2 SV(cubed) 96.9 ml SI(cubed) 45.8 ml/m\S\2 Ao root diam 3.4 cm Ao root area 8.9 cm\S\2 LA dimension 3.7 cm LA/Ao 1.1 LVOT diam 2.0 cm LVOT area 3.2 cm\S\2 LVAd ap4 33.3 cm\S\2 LVLd ap4 7.9 cm EDV(MOD-sp4) 114.7 ml EDV(sp4-el) 120.0 ml LVAs ap4 20.1 cm\S\2 LVLs ap4 6.8 cm ESV(MOD-sp4) 49.2 ml ESV(sp4-el) 50.1 ml EF(MOD-sp4) 57.1 % EF(sp4-el) 58.3 % LVAd ap2 35.7 cm\S\2 LVLd ap2 8.2 cm EDV(MOD-sp2) 130.1 ml EDV(sp2-el) 132.8 ml LVAs ap2 23.1 cm\S\2 LVLs ap2 7.1 cm ESV(MOD-sp2) 64.3 ml ESV(sp2-el) 64.2 ml EF(MOD-sp2) 50.6 % EF(sp2-el) 51.7 % LVLd %diff 3.7 % EDV(MOD-bp) 123.9 ml LVLs %diff 3.3 % ESV(MOD-bp) 55.9 ml EF(MOD-bp) 54.9 % SV(MOD-sp4) 65.5 ml SI(MOD-sp4) 31.0 ml/m\S\2 SV(MOD-sp2) 65.8 ml SI(MOD-sp2) 31.1 ml/m\S\2 SV(MOD-bp) 68.0 ml SI(MOD-bp) 32.2 ml/m\S\2 SV(sp4-el) 69.9 ml SI(sp4-el) 33.1 ml/m\S\2 SV(sp2-el) 68.6 ml SI(sp2-el) 32.5 ml/m\S\2 Doppler Measurements and Calculations MV E max ariel 65.0 cm/sec MV A max ariel 62.8 cm/sec MV E/A 1.0 MV P1/2t max ariel 69.0 cm/sec MV P1/2t 105.8 msec MVA(P1/2t) 2.1 cm\S\2 MV dec slope 191.0 cm/sec\S\2 MV dec time 0.34 sec Ao V2 max 117.4 cm/sec Ao max PG 5.5 mmHg Ao max PG (full) 2.8 mmHg KEVIN(V,A) 2.2 cm\S\2 KEVIN(V,D) 2.2 cm\S\2 LV V1 max PG 2.7 mmHg LV V1 max 82.0 cm/sec PA V2 max 48.3 cm/sec PA max PG 0.93 mmHg PI max ariel 132.9 cm/sec PI max PG 7.1 mmHg PI dec slope 96.4 cm/sec\S\2 PI P1/2t 403.5 msec TR max ariel 257.8 cm/sec
[2017-04-07] MEDS ORDERED: RIVAROXABAN 20 MG TAB PO SCH (13:00)
[2017-04-07] MEDS ORDERED: DLCSR120 PO (13:00)
--- NOTE | 2017-04-07 13:06 | Discharge Instructions ---
Discharge Instructions Date of Service Apr 07, 2017. Admission Reason for Admission: Atrial Fibrillation With Rvr Discharge Discharge Diagnosis / Problem: Atrial fibrillation with rapid ventricular rate Discharge Goals Goal(s): Decrease discomfort, Learn about illness, Diagnostic testing, Therapeutic intervention, Prevent Disease Progression Activity Recommendations Activity Limitations: resume your previous activity . Instructions / Follow-Up Instructions / Follow-Up Atrial fibrillation with rapid ventricular rate (irregular heart beat and fast heart rate): Continue Metoprolol 25 mg daily STOP Procardia NEW MEDICATIONS: Having a.fib puts you at risk for a stoke. For this, you have been placed on anticoagulation (blood thinner)- Xarelto 20 mg daily (start on 04/08) Diltiazem 120 mg daily Resume all other regular home medications as prescribed FOLLOW-UPS: Please follow-up with your PCP within 5-7 days Please follow-up with Cardiology within 1 month Please follow-up/keep all of your subspecialty appointments Current Hospital Diet Patient's current hospital diet: AHA Diet (Heart Healthy) Discharge Diet Recommended Diet: AHA Diet (Heart Healthy) Pending Studies Studies pending at discharge: no Medical Emergencies . Who to Call and When: Medical Emergencies: If at any time you feel your situation is an emergency, please call 911 immediately. . Non-Emergent Contact Non-Emergency issues call your: Primary Care Provider, Production Control Coordinator Call Non-Emergent contact if: you have any medication questions . . "Provider Documentation" section prepared by Coty Conroy. . VTE Core Measure Inpt VTE Proph given/why not?: Other Anticoagulation (Heparin gtt)
[2017-04-07] MEDS ORDERED: XRL20 PO (13:17)
--- NOTE | 2017-04-07 13:18 | Discharge Summary ---
Discharge Summary Date of Service Apr 07, 2017. Discharge Summary Admission Date: Apr 06, 2017 at 18:58 Discharge Date: Apr 07, 2017 Discharge Disposition: Home Principal Diagnosis: A.fib w/ RVR Problems/Secondary Diagnoses: Other hospital problems addressed: acute kidney injury - resolved Chronic medical conditions: BPH Sinus Pause S/P Pacer Tachyarrhythmias h/o C. Diff Immunizations: Have You Had Influenza Vaccine: N/A History of Tetanus Vaccine?: Yes History of Pneumococcal: No History of Hepatitis B Vaccine: No Procedures: CHEST ONE VIEW PORTABLE HISTORY: 71 years-old Male Chest Pain acute atypical chest pain COMPARISON: Chest and rib radiographs 09/09/2012 TECHNIQUE: Portable upright AP view of the chest FINDINGS: Cardiac silhouette is within normal limits. Left subclavian pacer is noted with leads overlying the right atrium and right ventricle, new from comparison study. There is no pneumothorax, pleural effusion, focal airspace consolidation or overt pulmonary edema. Linear subsegmental opacity of the left lung base is noted. Bones of the chest appear grossly intact. IMPRESSION: Linear subsegmental atelectasis or scarring of the left lung base with otherwise negative chest. The above report was generated using voice recognition software. It may contain grammatical, syntax or spelling errors. Electronically signed by: Edison Holder M.D. 04/06/2017 3:51 PM Dictated Date/Time: 04/06/2017 3:49 PM The status of this report is Signed. Draft = Not yet reviewed or approved by Radiologist. Signed = Reviewed and approved by Radiologist. ECHO: Interpretation Summary * Name: TUTU AMOR Study Date: 04/07/2017 09:24 AM BP: 130/66 mmHg * Patient Location: [facility] HR: 60 * : 1945 (M/d/yyyy) Gender: Male Height: 71 in * Age: 71 yrs Ethnicity: CA Weight: 201 lb * Ordering Physician: Amie Hoffman * Referring Physician: Srinivasan Villarreal * Performed By: Karen Martinez RCS * * Reason For Study: A-FIB * BSA: 2.1 m2 * -- Conclusions -- * There is borderline concentric left ventricular hypertrophy. * Left ventricular systolic function is normal. * Diastolic dysfunction, Grade II, consistent with elevated left atrial pressure. * Borderline left atrial enlargement. * Mild aortic regurgitation. * There is mild mitral regurgitation. * Right ventricular systolic pressure is normal. Procedure Details * A complete two-dimensional transthoracic echocardiogram was performed (2D, M-mode, Doppler and color flow Doppler). Left Ventricle * The left ventricle is normal in size. * There is borderline concentric left ventricular hypertrophy. * Left ventricular systolic function is normal. * Diastolic dysfunction, Grade II, consistent with elevated left atrial pressure. * The left ventricular wall motion is normal. Right Ventricle * The right ventricle is normal in size and function. Atria * Borderline left atrial enlargement. * Right atrial size is normal. Mitral Valve * The mitral valve leaflets appear thickened, but open well. * There is mild mitral regurgitation. Tricuspid Valve * The tricuspid valve is not well visualized, but is grossly normal. * There is trace tricuspid regurgitation. * Right ventricular systolic pressure is normal. Aortic Valve * The aortic valve is normal in structure and function. * The aortic valve is trileaflet. * There is some calcification involving the non coronary cusp * Mild aortic regurgitation. * There is an eccentric jet of aortic insufficiency directed against the anterior mitral leaflet. Great Vessels * The aortic root is normal size. Pericardium/Pleural * There is no pericardial effusion. Great Vessels * Normal inferior vena cava diameter and respiratory variation suggests normal central venous pressure. Pacemaker interrogation Consultations: Cardiology- Dr. Henderson Medication Reconciliation New Medications: Rivaroxaban (Xarelto) 20 Mg Tab 20 MG PO DAILY for 30 Days, #30 TABS Diltiazem HCl (Diltiazem HCl ER) 120 Mg Caper 120 MG PO QAM for 30 Days, #30 CAP Continued Medications: Alfuzosin Hcl (Uroxatral) 10 Mg Tab 10 MG PO HS, 0 Refills Dutasteride (Avodart) 0.5 Mg Cap 0.5 MG PO QPM, CAP Metoprolol Succinate (Metoprolol Succinate ER) 25 Mg Tabcr 25 MG PO QPM Probiotic Product (Probiotic) 1 Cap Cap 1 CAP PO DAILY Discontinued Medications: Nifedipine Ext Rel (Procardia Xl Ext Rel) 30 Mg Tabcr 30 MG PO QPM Discharge Exam Review of Systems: Constitutional: No fever, No chills, No sweats, No weakness, No fatigue Eyes: No worsening of vision ENT: No hearing loss Respiratory: No cough, No shortness of breath, No hemoptysis Cardiovascular: No chest pain, No orthopnea, No edema, No palpitations Abdomen: No pain, No nausea, No vomiting, No diarrhea, No constipation, No GI bleeding Musculoskeletal: No joint pain, No muscle pain, No swelling, No calf pain Genitourinary - Male: No hematuria, No dysuria Neurologic: No weakness, No numbness/tingling Psychiatric: No depression symptoms, No anxiety Endocrine: No fatigue Hematologic / Lymphatic: No abnormal bleeding/bruising Integumentary: No rash, No itch, No new/changing skin lesions Physical Exam: General Appearance: no apparent distress Eyes: normal inspection, PERRL ENT: hearing grossly normal Neck: supple Respiratory/Chest: lungs clear, no respiratory distress, no accessory muscle use Cardiovascular: regular rate, rhythm Abdomen / GI: normal bowel sounds, non tender, soft Extremities: no calf tenderness, no pedal edema Neurologic/Psychiatric: alert, normal mood/affect, oriented x 3 Skin: normal color, warm/dry, no rash Hospital Course Admission H&P: Mr. Amor is a 71 y/o male with PMHx of Tachyarrhythmias, Sinus Pause S/P Pacer , and BPH who presents to the ED complaining of an irregular heartbeat x 2 hours prior to arrival. He states he had an achy chest pressure and could tell his heart rate was fast. He felt his pulse and states it seemed very erratic and uses electronic monitor but states he cannot get a pulse rate reading. He does report intermittent tachyarrhythmias that have been ongoing. He states his pulse can get in the 150s but these episodes normally only last a few seconds and spontaneously abort. He denies ever being told he has atrial fibrillation. He states his marketing strategy analyst has mentioned implantation of a defibrillator but the patient reports he has been putting this off. He follows with Dr. Villarreal. He reported initial chest discomfort, generalized weakness, and shortness of breath when his heart rate was rapid. He states these are all currently resolved since initiating diltiazem. In the ED, patient was started on diltiazem bolus and drip and did spontaneously convert to sinus rhythm with pacing. Discussed anticoagulation, and he denies any past bleeding episodes or previous use of anticoagulation. Heparin drip was initiated. TSH mildly elevated which may be normal given age. Creatinine is 1.8 with very limited reference labs. No direct source of infection. Electrolytes are within normal limits. Physical Exam Vital Signs Date Time Temp Pulse Resp B/P (MAP) Pulse Ox O2 Delivery O2 Flow Rate FiO2 04/06/17 18:36 97 28 98 18 18:31 101 20 137/106 97 18 18:26 89 18 96 04/06/17 18:21 100 21 96 04/06/17 18:16 99 21 113/77 95 04/06/17 18:11 113 20 93 04/06/17 18:06 98 18 95 04/06/17 18:01 95 20 102/68 95 Room Air 04/06/17 17:56 106 21 97 04/06/17 17:51 107 18 95 04/06/17 17:46 113 16 117/89 96 04/06/17 17:41 105 24 96 04/06/17 17:36 111 20 95 04/06/17 17:31 108 21 159/137 96 04/06/17 17:26 88 19 96 04/06/17 17:21 107 15 97 18 17:16 100 16 126/69 95 18 17:11 95 20 95 04/06/17 17:06 101 15 95 04/06/17 17:01 90 15 86/70 94 04/06/17 16:56 104 16 94 18 16:51 116 19 95 18 16:46 145/69 18 16:45 105 16 94 04/06/17 16:40 115 16 96 18 16:35 109 18 94 18 16:31 98/71 18 16:30 110 22 97 18 16:20 104 26 95 18 16:16 129/80 04/06/17 16:15 115 19 95 18 16:10 120 18 90 04/06/17 16:06 130 26 153/93 95 Room Air 04/06/17 15:30 153 19 146/88 97 Room Air 04/06/17 15:19 166 04/06/17 15:15 97 Room Air 04/06/17 15:15 97 Room Air 04/06/17 15:06 156 24 181/106 98 Room Air General Appearance: WD/WN, no apparent distress Head: normocephalic, atraumatic Eyes: sclerae normal ENT: hearing grossly normal Neck: supple, no JVD, trachea midline Respiratory/Chest: lungs clear, normal breath sounds, no respiratory distress, no accessory muscle use Cardiovascular: no gallop, no murmur, + irregularly irregular Abdomen/GI: normal bowel sounds, non tender, soft Extremities/Musculoskelatal: no calf tenderness, no pedal edema Neurologic/Psych: alert, oriented x 3 Skin: normal color, warm/dry Hospital Course: Mr. Amor is a 71 y/o male with PMHx of Tachyarrhythmias, Sinus Pause S/P Pacer , and BPH who presents to the ED complaining of an irregular heartbeat x 2 hours prior to arrival. Found to be in Atrial Fibrillation. New Onset Atrial Fibrillation w/ RVR: - Admit to telemetry for cardiac monitoring- converted to NSR last evening, paced w/ rates in 60s - Cardiac enzymes negative - EKG w/out acute ischemic changes - ECHO w/ preserved EF and grade II diastolic dysfunction - Initially treated w/ IV Diltiazem drip in ED- transitions to PO Diltiazem 120 mg daily - Continue Metoprolol 25 mg daily and discontinue Procardia - IV Heparin drip- transitioned to PO Xarelto- discussed risk/benefit and copay w/ patient, agreeable - Consult cardiology, appreciate recommendations STEPHANIE on CKD stage III- RESOLVED: Treated w/ IVF BPH: Alfuzosin 10 mg daily and Avodart 0.5 mg daily DVT Prophylaxis: Heparin drip Code Status: Full resuscitation Disposition: Discharge to home Attending Discharge Note & Attestation: Pt seen/examined, chart reviewed, discharge care plan d/w TIGRE Conroy. I agree w/ the baron components of her discharge summary. 71yo male with history of HTN and pacemaker status who presented with chest pressure and palpitations. Found to be in rapid a. fib at ER presentation. Placed on cardizem infusion for such. Ischemic work-up including cardiac enzymes was negative. TSH was 5. Electrolytes were normal. The patient was admitted to telemetry and fortunately he spontaneously converted to NSR. He was seen in consult by cardiology who advised starting anticoagulation due to elevated CHADs VASC score. For that purpose he was placed on once daily xarelto. Cardizem CD was also added to his beta karma for rate control. Echocardiogram was completed showing preserved EF but grade 2 diastolic dysfunction. Valvular function was wnl. He also underwent pacemaker interrogation showing very low a. fib burden. At discharge he will take metoprolol xl, cardizem CD, and xarelto for paroxysmal a. fib. Discharge exam - gen - nad neck - no JVD heart - RRR, s1, s2 lungs - CTA b/l abd - soft, NT, ND ext - no edema Flaco Franz MD Total Time Spent: Greater than 30 minutes This includes examination of the patient, discharge planning, medication reconciliation, and communication with other providers. Discharge Instructions Please refer to the electronic Patient Visit Report (Discharge Instructions) for additional information. Follow-Up Please follow-up with your PCP within 5-7 days Please follow-up with Cardiology within 1 month Please follow-up/keep all of your subspecialty appointments Additional Copies To Dany Rodriguez M.D.; Srinivasan Villarreal, DO
--- NOTE | 2017-04-07 14:04 | CARDIOLOGY CONSULTATION ---
DATE OF CONSULTATION: 04/07/2017 TIME: 12:54 p.m. CONSULTING PHYSICIAN: Dr. Jany Guerin. REASON FOR CONSULTATION: Atrial fibrillation with rapid ventricular response. PRIMARY STAFF NUCLEAR MEDICINE TECHNOLOGIST: Srinivasan Villarreal DO HISTORY OF PRESENT ILLNESS: Mr. 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 He follows with electrophysiology with Dr. Perez through [facility], along with his primary surveyor instrument assistant, Dr. Villarreal here in the [facility]. He states that he has felt intermittent symptoms of feeling weak and was told that he has tachyarrhythmias of some sort. He stated that he has actually had a 2-minute episode in the past and that Dr. Perez had recommended that he receive an ICD, but he declined at that time. He has no other details of that discussion or of the actual diagnosis of the arrhythmia. He is not aware of any cardiomyopathy or underlying coronary artery disease. He has not had a cardiac catheterization or myocardial infarction. Yesterday at approximately 2:00 p.m., he felt weak and tired in his chest. He denied actual chest pain, shortness of breath, syncope or near syncope. He took his pulse, it was fast and erratic. He then came to the Emergency Department for further evaluation. He was given diltiazem for heart rate control and with this he felt better over time. He spontaneously converted to sinus rhythm at 19:47 p.m. He does not recall the exact time and he converted to sinus rhythm, only that he continually felt better after receiving diltiazem. He currently feels back to baseline. He denies bleeding such as melena, hematochezia or hematuria. He denies a history of TIA or stroke. He denies heart failure or vascular disease, as well as diabetes. He has rare dyspnea with exertion when he walks the dog. It has been intermittently occurring for the past 2 or 3 years and he can go 6 months without any symptoms. His has told him that he stops breathing at times at night, especially if he sleeps on his back. He has undergone 2 sleep studies in the past which she described as borderline. REVIEW OF SYSTEMS: As above. Review of systems is otherwise negative/unremarkable. PAST MEDICAL HISTORY: 1. BPH. 2. 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 3. Tachyarrhythmia. 4. C. diff. 5. Hypertension. 6. Hernia surgery. 7. Left hand surgery, status post fractures of his left hand. 8. Status post back surgery. HOME MEDICATIONS: Include metoprolol succinate 25 mg daily, nifedipine 30 mg daily. CURRENT INPATIENT MEDICATIONS: Include diltiazem 120 mg daily, metoprolol succinate 25 mg daily, heparin drip per protocol. He also received a liter of normal saline. ALLERGIES: No known drug allergies. SOCIAL HISTORY: He has smoked 1-1/2 to 2 packs per day since the age of 13. No alcohol or drugs. and lives at home with his . They have 4 children. 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 He is currently accompanied. FAMILY HISTORY: Mother at the age of 102, but did have angioplasty of a coronary artery at the age of approximately 60. PHYSICAL EXAMINATION: VITAL SIGNS: Temperature 36.6 degrees, heart rate 61 beats per minute, respiration rate 18, blood pressure 117/55 mmHg, oxygen saturation is 95% on room air. Weight 82.2 kg. GENERAL: No acute distress. He is alert and oriented. HEENT: Anicteric sclerae. NECK: No appreciable JVD. No bruits. Normal carotid upstrokes bilaterally. CARDIAC: PMI was nondisplaced. There was no ventricular heave. Regular, normal S1, S2. There were no audible murmurs, rubs or gallops. LUNGS: Clear to auscultation bilaterally without wheezes, rales or rhonchi. ABDOMEN: Soft, nontender, nondistended, normoactive bowel sounds, no bruits noted. EXTREMITIES: No cyanosis or edema. 2+ radial pulses bilaterally. 2+ dorsalis pedis pulses bilaterally. PSYCHIATRIC: Affect appears appropriate. LABORATORY DATA: White blood cell count 9.03, hemoglobin 13.9, platelets 207. Sodium 140, potassium 4.2, BUN 30, creatinine 1.36 down from 1.8. Troponin peak was 0.039, which is unremarkable. TSH 5.09. PTT 48.8. CHEST X-RAY: Linear subsegmental atelectasis or scarring at the left lung base as per radiology. Otherwise, negative chest x-ray. ECG upon presentation 04/06/2017 at 15:05, personally reviewed, atrial fibrillation with rapid ventricular response at 143 beats per minute. Nonspecific ST/T wave abnormality. Possible septal infarct. Repeat ECG performed on 04/07/2017 at 6:27 a.m. demonstrated electronic atrial pacing. Telemetry personally reviewed. Atrial fibrillation converted to sinus rhythm at approximately 19:47 p.m. Echocardiogram report as per Dr. Benavides, on 04/07/2017 personally reviewed. Normal LV systolic function. Borderline LVH. Type 2 diastolic dysfunction. Normal wall motion. Mild AI. Mild MR. Normal RVSP. ASSESSMENT AND PLAN: 1. Paroxysmal atrial fibrillation with rapid ventricular response: He appeared to symptomatic at faster heart rates, but not necessarily slower heart rates. Pacemaker interrogation recommended. We discussed diagnosis with the help of a diagram including treatment strategies such as rate control, rhythm control and ablation. We would recommend titrating rate control strategy. Can increase metoprolol succinate to 50 mg daily, especially if there is reduced LV systolic function. If LV systolic function is normal, would also be reasonable to continue the diltiazem [address] of nifedipine, which was started, as outlined by the primary hospitalist service. Would still continue with metoprolol succinate as per his outpatient dose as well. We discussed stroke risk reduction. He does have an elevated CHADS-VASc score. He is agreeable for anticoagulation for stroke risk reduction as he could have longer episodes in the future of atrial fibrillation in between pacemaker interrogations. If he has recurrent episodes noted on interrogation or symptomatically, we would then consider antiarrhythmic therapy but we will leave this to his primary trading assistant, Dr. Perez. 2. Tachyarrhythmia: He apparently had other type of tachyarrhythmias as well. Details are not known. Pacemaker interrogation has been requested earlier this morning. I have been out of the hospital; however, since earlier this morning and therefore Dr. Lopez has been asked to follow up on the pacemaker interrogation and to call with any questions or concerns. 3. Hypertension: Can continue current regimen with initiation of diltiazem or titration of beta karma as discussed above. 4. Tobacco Abuse: Recommended that he stop smoking. 5. Disposition: Follow up with Dr. Villarreal, his primary surveyor instrument assistant. From a cardiac perspective, he can be discharged later today if pacemaker interrogation does not suggest any acute need for inpatient care. The patient's care has been discussed with Dr. Lopez of the primary hospitalist service. Thanks for allowing me to participate in the care of Mr. Ocampo. SHERMAN
--- NOTE | 2017-04-07 14:30 | NUR ---
A: both saline locks removed with caths intact, sites clear, dry dressings applied. discharge instructions given written and verbally to patient with understanding verbalized. d/c to home via private vehicle.with personal belongings. taken to entrance via wheelchair by volunteer.
--- NOTE | 2017-04-07 16:07 | NUR ---
Case Management: Consulted for discharge planning. Met with pt who reports living with his , Reji, and being independent with ADLs, ambulation, and driving. Pt denies discharge needs at this time. No additional needs identified.
[2017-09-05] MEDS ORDERED: RIVA1TAB4 PO (04:45)
[2017-09-05] MEDS ORDERED: DILT120C67 PO (04:45)
[2017-09-07] MEDS ORDERED: ADVIN25050 INH (14:01)
[2017-09-07] MEDS ORDERED: LPT40 PO (14:01)
[2017-09-07] MEDS ORDERED: SYN50 PO (14:01)
[2017-09-07] MEDS ORDERED: DRN400 PO (14:01)
== END 2017-04-07 14:30 | disposition home or self-care (01) | DRG 309 ==
LOC: C.EDB 14:58 → C.2T 18:58 → ENRESERV 19:12
PROVIDERS: ADMIT Internal Medicine; ATTEND Internal Medicine
DX: I48.0 Paroxysmal atrial fibrillation (principal); N17.9 Acute kidney failure, unspecified; F17.200 Nicotine dependence, unspecified, uncomplicated; N40.0 Benign prostatic hyperplasia without lower urinary tract symptoms; I10 Essential (primary) hypertension; Z95.0 Presence of cardiac pacemaker

== ENCOUNTER → 2017-07-06 | Outpatient (CLI) | payer OTHER, MEDICARE ==
[~2017-07-06] MED LIST changes: -AMLO5TAB3 PO; -AVD5 PO; +DLCSR120 PO; +DUTA0.5C PO; +MISCCAP80 PO; +TPRSR/25 PO; +XRL20 PO
== END | disposition home or self-care (01) ==
LOC: C.LAB 14:24
PROVIDERS: ATTEND Urology
DX: N40.1 Benign prostatic hyperplasia with lower urinary tract symptoms (principal)

== ENCOUNTER → 2017-08-26 | Outpatient (CLI) | payer OTHER, MEDICARE ==
--- NOTE | 2017-08-27 12:20 | DIAGNOSTIC IMAGING REPORT ---
CT LUNG SCREENING, LOW DOSE WITH COMPUTER-AIDED DETECTION (CAD) CLINICAL HISTORY: LOW DOSE LUNG SCREENING Smoking history. COMPARISON STUDY: Chest x-ray dated 04/06/2017. Abdominal CT dated 10/14/2007. CT DOSE: 92.57 mGy.cm TECHNIQUE: Low-dose helical CT was acquired without intravenous contrast from lung apices to bases and reconstructed at 2.5 mm every 2 mm. CAD was utilized for this study. A dose lowering technique was utilized adhering to the principles of ALARA. FINDINGS: Thyroid: Imaged portions of the thyroid gland are normal in appearance. Thoracic aorta: There is atherosclerotic calcification of the thoracic aorta, which is normal in caliber and demonstrates standard 3-vessel arch anatomy. Heart: A 2-lead cardiac pacemaker is present in the left chest wall. The heart is mildly enlarged and without pericardial effusion. The coronary arteries are densely calcified. Lungs and pleural spaces: Emphysematous change is identified. There is no airspace consolidation or pleural effusion. Bibasilar scarring/atelectasis is noted. The trachea and central airways are clear. Mild diffuse peribronchial thickening suggests reactive airway disease. A calcified granuloma is noted in the left lower lobe. There is a 3 mm left lower lobe pulmonary nodule seen image #189. A 4 mm pleural-based nodule is seen in the right middle lobe along the main minor fissure on image #191. A 3 mm right middle lobe nodule image #222 is unchanged dating back to 2007 and of doubtful significance. Mediastinum: There is no mediastinal lymphadenopathy. Edilma: Not well assessed without IV contrast. Axilla: Clear. Upper abdomen: A large calcified gallstone is identified. A diverticulum is noted in the partially imaged left colon. Partially imaged upper abdominal viscera is otherwise grossly normal as visualized but not well evaluated due to the low dose technique. Skeletal structures: There are no lytic or blastic osseous lesions. IMPRESSION: 1. Cardiomegaly and emphysema. 2. There is no airspace consolidation or pleural effusion. 3. There are low suspicion pulmonary nodules identified measuring up to 4 mm. See below recommendations. 4. Cholelithiasis. CAD FINDINGS: Nodule 1 Category: 2 Nodule 1 Status: Baseline Nodule 1 Description: Solid Nodule 1 Lesion ID: 2 Nodule 1 Slice Number: 68 Nodule 1 Volume (mm3): 49 Nodule 1 Major [place] mm: 5.5 Nodule 1 Minor [place] mm: 3.9 Nodule 2 Category: 2 Nodule 2 Status: Baseline Nodule 2 Description: Solid Nodule 2 Lesion ID: 1 Nodule 2 Slice Number: 70 Nodule 2 Volume (mm3): 6 Nodule 2 Major [place] mm: 2.0 Nodule 2 Minor [place] mm: 1.0 Overall Lung RADS Category: 2 Lung RADS Management Recommendation: Continue annual lung cancer screening. Lung RADS Follow Up Date: 2018-08-26 Lung RADS Nodule ID: [id number] Electronically signed by: Warren Robin M.D. 08/27/2017 12:19 PM Dictated Date/Time: 08/26/2017 3:50 PM
== END | disposition home or self-care (01) ==
LOC: C.CTS 15:25
PROVIDERS: ATTEND Family Medicine
DX: R05 Cough (principal); F17.200 Nicotine dependence, unspecified, uncomplicated; I51.7 Cardiomegaly; J43.9 Emphysema, unspecified; R91.8 Other nonspecific abnormal finding of lung field; K80.20 Calculus of gallbladder without cholecystitis without obstruction

== ENCOUNTER 2021-03-04 18:49 | Inpatient (IN) ==
[2021-03-04] MEDS ORDERED: dilTIAZem HCl 5 MG/ML 5 ML VIAL IV ONE (18:55)
--- NOTE | 2021-03-04 19:08 | Emergency Department Note ---
Impression & Plan Chest pain ADMIT ED Provider Note HPI: Patient is a 75-year-old male with history of atrial fibrillation, on oral anticoagulation, presents the emergency department chief complaint of palpitations and chest discomfort that been ongoing for the past 2 hours. Patient arrives via EMS, he was noted to be in atrial fibrillation with RVR in the field, on arrival here to the ED he is also noted to be in atrial flutter with 2-1 block, he states his chest pain is currently resolved. He is otherwise with stable blood pressure and saturating well on room air on arrival. ROS: -Cardio: Palpitations, chest discomfort *10 point review systems was conducted and is otherwise negative unless stated above *Outpatient medications and allergy history reviewed PE: General: Alert, NAD HEENT: Normocephalic, atraumatic, trachea midline Eyes: Extraocular eye movement is intact, no scleral erythema Pulmonary: Clear to auscultation bilaterally, no wheezing Cardio: Tachycardic rate with regular rhythm GI: Abdomen is soft, nontender : No suprapubic tenderness MSK: No evidence of trauma or malformation of the extremities, no edema Skin: No evidence of rash Neuro: Alert, no focal deficits Psychiatric: Cooperative mica paster: - An order was placed for continuous cardiac monitoring - Patient was noted to be in atrial fibrillation/flutter rhythm with rate of 140 EKG: Rate: 143 Rhythm: Atrial flutter with 2-1 block Intervals: Within normal limits ST changes: No ST elevation, slight ST depression in the lateral leads V4 through V6 Time: 1853 EKG #2: Rate: 89 Rhythm: Atrial fibrillation Intervals: Within normal limits ST changes: No ST elevation Time: 1907 Medical Decision Making: Patient presented to the emergency department with a sensation of palpitations and chest discomfort, on arrival here to the ED he is in atrial fibrillation with 2-1 block, he does have a history of atrial fibrillation. He takes digoxin. He is on oral anticoagulation with Eliquis. EKG shows what appears to be some ST depressions in V4 through V6, this does appear consistent with similar EKGs in the past when he has had elevated heart rates/atrial fibrillation with RVR. Patient was given a bolus of diltiazem in the ED and his heart rate did respond into the 80s, repeat EKG shows a less concerning pattern for ischemic disease, I did discuss the patient's presentation and EKG findings with on-call interventional cardiology, Dr. Bajwa, at this time will plan to admit the patient and hold off on cardiac catheterization as the patient has had similar presentations in the past with relatively unremarkable cardiac catheterizations within the past several years. In addition, troponin result is negative. Patient states his chest pain is completely resolved on presentation here to the ED. He is otherwise hemodynamically stable. Patient is in agreement to the above plan, he will be admitted to the [facility] Hospitalist service for further management after Case was discussed with the on- call hospitalist, Dr. Gutierrez. 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, stage II (mild) Chronic obstructive pulmonary disease "MILD" GERD (gastroesophageal reflux disease) Hyperlipidemia Hypertension Hypothyroidism Peripheral neuropathy Tachycardia Temporomandibular joint disorder Surgical History Fusion of spine LUMBAR H/O hand surgery LEFT H/O knee surgery "MULTIPLE LEFT KNEE SURGERY" History of anesthesia reaction WAS TOLD "I WAS HARD TO SEDATE DURING COLONOSCOPY 15 YEARS AGO" History of cardiac cath NO STENTS History of colonoscopy History of herniorrhaphy History of nasal septoplasty History of tonsillectomy History of tooth extraction Family History Other No significant family history Social History Smoking Status: Former smoker Tobacco Type: Cigarettes packs per day: 2; Years Smoked: 52; Second Hand Exposure: Yes; Hx Alcohol Use: Yes Hx Substance Use: No Preferred Language: Mohawk Communication Ability: Effective Ethics Instructor Required: No Beliefs That Will Affect Care: None marital status: Current Living Situation: Spouse Feels Safe at Home: Yes Assistive Devices: Glasses Allergies Allergies Allergy/AdvReac Type Severity Reaction Status Date / Time No Known Allergies Allergy Verified 03/04/21 19:40 Home Meds Home Medications Medication Instructions Recorded Confirmed atorvastatin 40 mg tablet 40 mg PO HS 09/22/18 03/04/21 levothyroxine 50 mcg tablet 50 mcg PO QAM 09/22/18 03/04/21 albuterol sulfate 90 mcg/actuation 2 puff INHALATION Q6H PRN 12/23/18 03/04/21 aerosol inhaler (Ventolin HFA) digoxin 125 mcg (0.125 mg) tablet 125 mcg PO 4XWK tab 10/12/19 03/04/21 hydralazine 10 mg tablet See Rx Instructions .ROUTE .COMPLEX 10/12/19 03/04/21 metoprolol succinate 25 mg 25 mg PO BID 10/12/19 03/04/21 tablet,extended release 24 hr rivaroxaban 20 mg tablet (Xarelto) 20 mg PO HS 10/17/19 03/04/21 tiotropium bromide 18 mcg capsule 18 mcg INHALATION DAILY 10/17/19 03/04/21 with inhalation device (Spiriva with HandiHaler) coenzyme Q10 10 mg capsule (Co 10 mg PO DAILY 03/04/21 03/04/21 Q-10) lactobacillus combination no.4 3 3,000 mmu cells PO DAILY 03/04/21 03/04/21 billion cell capsule (Probiotic) levocarnitine 500 mg tablet 500 mg PO DAILY 03/04/21 03/04/21 (L-Carnitine) magnesium chloride 75 mg PO DAILY 03/04/21 03/04/21 Previous Rx's Medication Instructions Recorded ergocalciferol (vitamin D2) 1,250 1,250 mcg PO .COMPLEX #21 cap 10/21/20 mcg (50,000 unit) capsule alfuzosin 10 mg tablet,extended 10 mg PO DAILY #90 tab 11/12/20 release 24 hr dutasteride 0.5 mg capsule 0.5 mg PO DAILY #90 cap 11/12/20 Results & Data (ED) Vital Signs Vital Signs - 24 hr 03/04/21 18:43 03/04/21 19:01 03/04/21 19:17 Temperature 36.5 C Temperature Source Oral Pulse Rate 144 H 101 H Pulse Rate from SpO2 Sensor Pulse Rhythm Irregular Pulse Strength Normal Respiratory Rate 20 20 Respiratory Effort / Characteristics Non-Labored Spontaneous Respiratory Depth Normal Respiratory Pattern Regular Blood Pressure 138/86 Blood Pressure Mean 103 Blood Pressure Position Lying Pulse Oximetry 96 95 95 Oxygen Delivery Method Room Air Room Air Room Air Sepsis Recent Fever Within 48 Hours No Sepsis New/Unexplained Change in Mental Status No Sepsis Action Taken by Nursing No Action Required 03/04/21 19:30 03/04/21 19:45 03/04/21 20:00 Temperature Temperature Source Pulse Rate 102 H 118 H 86 Pulse Rate from SpO2 Sensor 102 H 107 H 96 H Pulse Rhythm Pulse Strength Respiratory Rate 21 18 18 Respiratory Effort / Characteristics Respiratory Depth Respiratory Pattern Blood Pressure 111/74 133/73 114/63 Blood Pressure Mean 86 93 80 Blood Pressure Position Pulse Oximetry 97 95 97 Oxygen Delivery Method Room Air Room Air Sepsis Recent Fever Within 48 Hours Sepsis New/Unexplained Change in Mental Status Sepsis Action Taken by Nursing 03/04/21 20:15 03/04/21 20:30 03/04/21 20:45 Temperature Temperature Source Pulse Rate 92 H 106 H 94 H Pulse Rate from SpO2 Sensor 92 H 101 H 89 Pulse Rhythm Pulse Strength Respiratory Rate 17 18 20 Respiratory Effort / Characteristics Respiratory Depth Respiratory Pattern Blood Pressure 145/79 H 143/81 H 149/82 H Blood Pressure Mean 101 101 104 Blood Pressure Position Pulse Oximetry 96 96 98 Oxygen Delivery Method Room Air Room Air Room Air Sepsis Recent Fever Within 48 Hours Sepsis New/Unexplained Change in Mental Status Sepsis Action Taken by Nursing 03/04/21 21:00 Temperature Temperature Source Pulse Rate 92 H Pulse Rate from SpO2 Sensor 94 H Pulse Rhythm Pulse Strength Respiratory Rate 17 Respiratory Effort / Characteristics Respiratory Depth Respiratory Pattern Blood Pressure 143/69 H Blood Pressure Mean 93 Blood Pressure Position Pulse Oximetry 96 Oxygen Delivery Method Sepsis Recent Fever Within 48 Hours Sepsis New/Unexplained Change in Mental Status Sepsis Action Taken by Nursing Laboratory Data Result diagrams: 03/04/21 18:55 03/04/21 18:55 Lab Results 03/04/21 03/04/21 03/04/21 Range/Units 18:55 18:55 20:07 WBC 8.11 (4.8-10.8) K/uL RBC 4.44 L (4.7-6.1) M/uL Hgb 13.5 L (14.0-18.0) g/dL Hct 40.3 L (42-52) % MCV 90.8 (80-100) fL MCH 30.4 (25-34) pg MCHC 33.5 (32-36) g/dL RDW Std Deviation 44.0 (36.4-46.3) fL RDW Coeff of Crystal 13.3 (11.5-14.5) % Plt Count 294 (130-400) K/uL MPV 9.6 (7.4-10.4) fL Immature Gran % (Auto) 0.4 % Neut % (Auto) 72.7 % Lymph % (Auto) 21.0 % Lamb % (Auto) 3.8 % Eos % (Auto) 1.4 % Baso % (Auto) 0.7 % Neut # (Auto) 5.90 (1.4-6.5) K/uL Lymph # (Auto) 1.70 (1.2-3.4) K/uL Lamb # (Auto) 0.31 (0.11-0.59) K/uL Eos # (Auto) 0.11 (0-0.5) K/uL Baso # (Auto) 0.06 (0-0.2) K/uL Immature Gran # (Auto) 0.03 H (0.00-0.02) K/uL Sodium 140 (136-145) mmol/L Potassium 3.8 (3.5-5.1) mmol/L Chloride 108 H (98-107) mmol/L Carbon Dioxide 27 (21-32) mmol/L Anion Gap 5.0 (3-11) BUN 24 H (7-18) mg/dl Creatinine 1.50 H (0.6-1.4) mg/dl Est Cr Clr Drug Dosing 49.6 ml/min Est GFR ( Amer) 51.3 ml/min Est GFR (Non-Af Amer) 44.3 ml/min BUN/Creatinine Ratio 16.0 (10-20) Glucose 200 H (70-99) mg/dl Calcium 9.3 (8.5-10.1) mg/dl Total Bilirubin 0.5 (0.2-1) mg/dl AST 18 (15-37) U/L ALT 29 (12-78) U/L Alkaline Phosphatase 75 (45-117) U/L Troponin I < 0.015 (0-0.045) ng/ml Total Protein 7.1 (6.4-8.2) gm/dl Albumin 3.4 (3.4-5.0) gm/dl Globulin 3.7 (2.5-4.0) gm/dl Albumin/Globulin Ratio 0.9 (0.9-2) Lipase 110 (73-393) U/L SARS-CoV-2, RNA, NAAT NEGATIVE (NEGATIVE) Administered Medications Discontinued Medications Diltiazem HCl (Diltiazem Hcl 5 Mg/Ml 5 Ml Vial) Confirm Administered Dose 25 mg IV .garbs-MED ONE Stop: 03/04/21 18:56 Last Increment: 03/04/21 18:59 Dose: 15 mg Documented by: [id number] Cosigned by: [id number] Imaging Data Radiologist's Impression: Chest X-Ray 03/04/21 19:01 XR chest 1V portable HISTORY: Atypical Chest Pain COMPARISON: Chest 10/17/2019. FINDINGS: No pneumothorax. No pleural effusions. The heart remains mildly enlarged. Is left-sided dual-chamber pacemaker. A few bibasilar linear densities consistent with subsegmental atelectasis. No evidence for pulmonary edema. No n ew focal lung consolidations. Old, healed left clavicle fracture. Emphysema persists. IMPRESSION: No significant change compared to the prior study. No acute process. Cardiomegaly and emphysema are again noted. ACT 112: Negative or not required by law. Electronically signed by: Cristian Madera M.D. 03/04/2021 7:37 PM Discharge Plan Visit Data Chief Complaint: Arrhythmia/Palpitations Stated Complaint: Chest Pain ED Provider: Minh Light Discharge Problem: Chest pain Forms Stand Alone Forms: [employer] Prescriptions Prescriptions: No Action digoxin 125 mcg (0.125 mg) tablet 125 mcg PO 4XWK RF: 0 metoprolol succinate 25 mg tablet extended release 24 hr 25 mg PO BID RF: 0 hydralazine 10 mg tablet See Rx Instructions .ROUTE .COMPLEX RF: 0 alfuzosin 10 mg tablet extended release 24 hr 10 mg PO DAILY Qty: 90 RF: 3 dutasteride 0.5 mg capsule 0.5 mg PO DAILY Qty: 90 RF: 3 ergocalciferol (vitamin D2) 1,250 mcg (50,000 unit) capsule 1,250 mcg PO .COMPLEX Qty: 21 RF: 0 Spiriva with HandiHaler 18 mcg capsule, w/inhalation device 18 mcg INHALATION DAILY RF: 0 Xarelto 20 mg Tablet 20 mg PO HS RF: 0 atorvastatin 40 mg Tablet 40 mg PO HS RF: 0 levothyroxine 50 mcg Tablet 50 mcg PO QAM RF: 0 albuterol sulfate [Ventolin HFA] 90 mcg/actuation Hfa Aerosol Inhaler 2 puff INHALATION Q6H PRN (Reason: cough/congestion) RF: 0 L-Carnitine 500 mg Tablet 500 mg PO DAILY RF: 0 magnesium chloride 75 mg PO DAILY RF: 0 coenzyme Q10 [Co Q-10] 10 mg Capsule 10 mg PO DAILY RF: 0 Probiotic 3 billion cell Capsule 3,000 mmu cells PO DAILY RF: 0 Referrals Referrals: Dany Rodriguez MD [Primary Care Provider] - Discharge Problem: Chest pain Qualifiers: Chest pain type: unspecified Qualified Code(s): R07.9 - Chest pain, unspecified
[2021-03-04 19:18] LABS: Basophils # (auto) 0.06 K/uL (0-0.2); Basophils % (auto) 0.7 %; Eosinophils # (auto) 0.11 K/uL (0-0.5); Eosinophils % (auto) 1.4 %; Hematocrit (blood only) 40.3 % (42-52); Hemoglobin 13.5 g/dL (14.0-18.0); Immature Granulocytes # (auto) 0.03 K/uL (0.00-0.02); Immature Granulocytes % (auto) 0.4 %; Mean Corpuscular Hemoglobin 30.4 pg (25-34); Mean Corpuscular Hgb Conc 33.5 g/dL (32-36); Mean Corpuscular Volume 90.8 fL (80-100); Mean Platelet Volume 9.6 fL (7.4-10.4); Monocytes # (auto) 0.31 K/uL (0.11-0.59); Monocytes % (auto) 3.8 %; Neutrophils % (auto) 72.7 %; Platelet Count 294 K/uL (130-400); RDW Coefficient of Variation 13.3 % (11.5-14.5); Red Blood Count 4.44 M/uL (4.7-6.1); White Blood Count 8.11 K/uL (4.8-10.8)
[2021-03-04 19:35] LABS: Alanine Aminotransferase 29 U/L (12-78); Albumin Level 3.4 gm/dl (3.4-5.0); Aspartate Aminotransferase 18 U/L (15-37); Blood Urea Nitrogen 24 mg/dl (7-18); Calcium 9.3 mg/dl (8.5-10.1); Carbon Dioxide 27 mmol/L (21-32); Chloride 108 mmol/L (98-107); Creatinine Clr Calc Pharmacy 49.6 ml/min; Est GFR (African American) 51.3 ml/min; Est GFR (Non-African American) 44.3 ml/min; Glucose 200 mg/dl (70-99); Lipase 110 U/L (73-393); Potassium 3.8 mmol/L (3.5-5.1); Sodium 140 mmol/L (136-145)
--- NOTE | 2021-03-04 19:38 | XRay Report ---
XR chest 1V portable HISTORY: Atypical Chest Pain COMPARISON: Chest 10/17/2019. FINDINGS: No pneumothorax. No pleural effusions. The heart remains mildly enlarged. Is left-sided shiraz l-chamber pacemaker. A few bibasilar linear densities consistent with subsegmental atelectasis. No ev idence for pulmonary edema. No new focal lung consolidations. Old, healed left clavicle fracture. Emp hysema persists. IMPRESSION: No significant change compared to the prior study. No acute process. Cardiomegaly and emphysema are a gain noted. ACT 112: Negative or not required by law. Electronically signed by: Cristian Madera M.D. 03/04/2021 7:37 PM
[2021-03-04 19:40] LABS: Albumin Globulin Ratio 0.9 (0.9-2); Alkaline Phosphatase 75 U/L (45-117); Bilirubin,Total 0.5 mg/dl (0.2-1); Globulin 3.7 gm/dl (2.5-4.0); Total Protein 7.1 gm/dl (6.4-8.2); Troponin I < 0.015 ng/ml (0-0.045)
[2021-03-04] MEDS ORDERED: METOPROLOL TARTRATE 50 MG TAB PO STA (21:48)
[2021-03-04] MEDS ORDERED: POTASSIUM CHLORIDE CRTAB 20 MEQ TABCR PO STA (21:49)
--- NOTE | 2021-03-04 22:01 | History & Physical Report ---
Date of Service March 04, 2021 Assessment & Plan (1) Chest pain: Plan: Chest pain/palpitations/atrial fibrillation with RVR- Rate was somewhat improved with diltiazem 25 mg IV x1 given by the ED Will give metoprolol tartrate 50 mg p.o. x1 now, and increase his baseline dosing from 25 mg p.o. twice daily to 50 mg p.o. twice daily Continue digoxin Stop hydralazine Give Klor-Con 40 mEq p.o. x1 now Lopressor 5 mg IV every 4 hours as needed heart rate greater than 110 Continue Xarelto 20 mg at bedtime, giving a dose tonight (2) Atrial fibrillation with RVR: Plan: See above (3) COPD (chronic obstructive pulmonary disease): Plan: Continue Spiriva (4) BPH with obstruction/lower urinary tract symptoms: Plan: Continue dutasteride and alfuzosin (5) Hypertension: Plan: See above (6) Chronic kidney disease, stage II (mild): Plan: Creatinine 1.50 upon admission, with range 1.44-1.90 Follow serially (7) Hyperlipidemia: Plan: Continue atorvastatin (8) Hypothyroidism: Plan: Continue levothyroxine History of Present Illness Chief Complaint: The patient presents to the emergency department with complaint of palpitations and chest discomfort for the past 2 hours prior to arrival. Primary Care Provider: Dany Rodriguez MD The patient is a 75-year-old male with a past medical history including tobacco abuse, COPD, BPH with LUTS, CKD stage II, hypertension, history of cardiac pacemaker and atrial fibrillation with RVR. Patient presents with symptoms as noted above, and upon presentation to the ED, was found to be in A. fib with RVR with rate in the 140s. From the ED the patient received the following: Diltiazem 25 mg IV x1 which d ecreased heart rate 144 down to 118. Allergies Allergy/AdvReac Type Severity Reaction Status Date / Time No Known Allergies Allergy Verified 03/04/21 19:40 Home Medications Medication Instructions Recorded Confirmed Type atorvastatin 40 mg tablet 40 mg PO HS 09/22/18 03/04/21 History levothyroxine 50 mcg tablet 50 mcg PO QAM 09/22/18 03/04/21 History albuterol sulfate 90 mcg/actuation 2 puff INHALATION Q6H PRN 12/23/18 03/04/21 History aerosol inhaler (Ventolin HFA) digoxin 125 mcg (0.125 mg) tablet 125 mcg PO 4XWK tab 10/12/19 03/04/21 History hydralazine 10 mg tablet See Rx Instructions .ROUTE .COMPLEX 10/12/19 03/04/21 History metoprolol succinate 25 mg 25 mg PO BID 10/12/19 03/04/21 History tablet,extended release 24 hr rivaroxaban 20 mg tablet (Xarelto) 20 mg PO HS 10/17/19 03/04/21 History tiotropium bromide 18 mcg capsule 18 mcg INHALATION DAILY 10/17/19 03/04/21 History with inhalation device (Spiriva with HandiHaler) ergocalciferol (vitamin D2) 1,250 1,250 mcg PO .COMPLEX #21 cap 10/21/20 03/04/21 Rx mcg (50,000 unit) capsule alfuzosin 10 mg tablet,extended 10 mg PO DAILY #90 tab 11/12/20 03/04/21 Rx release 24 hr dutasteride 0.5 mg capsule 0.5 mg PO DAILY #90 cap 11/12/20 03/04/21 Rx coenzyme Q10 10 mg capsule (Co 10 mg PO DAILY 03/04/21 03/04/21 History Q-10) lactobacillus combination no.4 3 3,000 mmu cells PO DAILY 03/04/21 03/04/21 History billion cell capsule (Probiotic) levocarnitine 500 mg tablet 500 mg PO DAILY 03/04/21 03/04/21 History (L-Carnitine) magnesium chloride 75 mg PO DAILY 03/04/21 03/04/21 History Past Med/Surg History Medical History (Updated 03/05/21 @ 02:07 by Silvino Archibald MD) Anemia Atrial fibrillation BPH (benign prostatic hyperplasia) 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, stage II (mild) Chronic obstructive pulmonary disease "MILD" GERD (gastroesophageal reflux disease) Hyperlipidemia Hypertension Hypothyroidism Peripheral neuropathy Tachycardia Temporomandibular joint disorder Surgical History Fusion of spine LUMBAR H/O hand surgery LEFT H/O knee surgery "MULTIPLE LEFT KNEE SURGERY" History of anesthesia reaction WAS TOLD "I WAS HARD TO SEDATE DURING COLONOSCOPY 15 YEARS AGO" History of cardiac cath NO STENTS History of colonoscopy History of herniorrhaphy History of nasal septoplasty History of tonsillectomy History of tooth extraction Family History Other No significant family history Social History Smoking Status: Former smoker Tobacco Type: Cigarettes packs per day: 2; Years Smoked: 52; Second Hand Exposure: No; Do You Dip or Chew Tobacco: No; Tobacco Cessation Education Requested by Patient: No Hx Alcohol Use: No Hx Substance Use: No Preferred Language: Tamazight Communication Ability: Effective Case Management Coordinator Required: No Beliefs That Will Affect Care: None marital status: Current Living Situation: Spouse Other Information That Helps Us Care for You: No Feels Safe at Home: Yes Safety Concerns: Feels Safe At This Time Assistive Devices: Glasses Review of Systems Review of Systems: The patient denies cough, lower extremity swelling, sore throat, fevers, chills, sweats, nausea, vomiting, diarrhea , constipation, abdominal pain, pelvic pain, blood in urine or stool, dysuria, urinary frequency or urgency, lightheadedness, dizziness, headache, memory loss, loss of consciousness, rash, abnormal bruising or bleeding, imbalance, focal weakness, numbness or tingling in arms or legs, generalized arthralgias or myalgias, back or neck pain, or night sweats. The review of systems is otherwise negative other than for that already noted above, and at least 10 systems have been reviewed. Physical Exam Physical Exam: The patient is awake, alert and oriented 3, well developed and well nourished, normocephalic and atraumatic, lying in bed and in no acute distress. HEENT--PERRL, EOMI, mucous membranes and oropharynx dry. Neck--supple. No JVD. No bruits. Thyroid normal, trachea midline, no adenopathy. Heart--irregularly irregular and tachycardic. No murmurs, rubs or gallops. Lungs--clear bilaterally, no respiratory distress, no accessory muscle use. Abdomen--normal bowel sounds and soft. Nontender. Mildly distended and tympanitic Extremities--no cyanosis or clubbing. No edema. Dermatologic--normal skin turgor, normal color, no abnormal lymph nodes, no rash. Neurologic--cranial nerves II through XII grossly intact. Rheumatologic--normal range of motion. Psychiatric--normal affect. Results & Data Results & Data ([facility]) Vital Signs (Past 12 Hours) Vital Signs Temp Pulse Resp BP Pulse Ox 03/04/21 21:00 92 H 17 143/69 H 96 03/04/21 20:45 94 H 20 149/82 H 98 03/04/21 20:30 106 H 18 143/81 H 96 03/04/21 20:15 92 H 17 145/79 H 96 03/04/21 20:00 86 18 114/63 97 03/04/21 19:45 118 H 18 133/73 95 03/04/21 19:30 102 H 21 111/74 97 03/04/21 19:17 95 03/04/21 19:01 101 H 20 95 03/04/21 18:43 36.5 C 144 H 20 138/86 96 Laboratory Results Laboratory Results WBC 8.11 K/uL (4.8-10.8) 03/04/21 18:55 RBC 4.44 M/uL (4.7-6.1) L 03/04/21 18:55 Hgb 13.5 g/dL (14.0-18.0) L 03/04/21 18:55 Hct 40.3 % (42-52) L 03/04/21 18:55 MCV 90.8 fL (80-100) 03/04/21 18:55 MCH 30.4 pg (25-34) 03/04/21 18:55 MCHC 33.5 g/dL (32-36) 03/04/21 18:55 RDW Std Deviation 44.0 fL (36.4-46.3) 03/04/21 18:55 RDW Coeff of Crystal 13.3 % (11.5-14.5) 03/04/21 18:55 Plt Count 294 K/uL (130-400) 03/04/21 18:55 MPV 9.6 fL (7.4-10.4) 03/04/21 18:55 Immature Gran % (Auto) 0.4 % 03/04/21 18:55 Neut % (Auto) 72.7 % 03/04/21 18:55 Lymph % (Auto) 21.0 % 03/04/21 18:55 Will % (Auto) 3.8 % 03/04/21 18:55 Eos % (Auto) 1.4 % 03/04/21 18:55 Baso % (Auto) 0.7 % 03/04/21 18:55 Neut # (Auto) 5.90 K/uL (1.4-6.5) 03/04/21 18:55 Lymph # (Auto) 1.70 K/uL (1.2-3.4) 03/04/21 18:55 Will # (Auto) 0.31 K/uL (0.11-0.59) 03/04/21 18:55 Eos # (Auto) 0.11 K/uL (0-0.5) 03/04/21 18:55 Baso # (Auto) 0.06 K/uL (0-0.2) 03/04/21 18:55 Immature Gran # (Auto) 0.03 K/uL (0.00-0.02) H 03/04/21 18:55 Sodium 140 mmol/L (136-145) 03/04/21 18:55 Potassium 3.8 mmol/L (3.5-5.1) 03/04/21 18:55 Chloride 108 mmol/L (98-107) H 03/04/21 18:55 Carbon Dioxide 27 mmol/L (21-32) 03/04/21 18:55 Anion Gap 5.0 (3-11) 03/04/21 18:55 BUN 24 mg/dl (7-18) H 03/04/21 18:55 Creatinine 1.50 mg/dl (0.6-1.4) H 03/04/21 18:55 Est Cr Clr Drug Dosing 49.6 ml/min 03/04/21 18:55 Est GFR ( Amer) 51.3 ml/min 03/04/21 18:55 Est GFR (Non-Af Amer) 44.3 ml/min 03/04/21 18:55 BUN/Creatinine Ratio 16.0 (10-20) 03/04/21 18:55 Glucose 200 mg/dl (70-99) H 03/04/21 18:55 Calcium 9.3 mg/dl (8.5-10.1) 03/04/21 18:55 Magnesium 2.1 mg/dl (1.8-2.4) 03/04/21 18:55 Magnesium Cancelled 03/04/21 18:55 Total Bilirubin 0.5 mg/dl (0.2-1) 03/04/21 18:55 AST 18 U/L (15-37) 03/04/21 18:55 ALT 29 U/L (12-78) 03/04/21 18:55 Alkaline Phosphatase 75 U/L (45-117) 03/04/21 18:55 Troponin I < 0.015 ng/ml (0-0.045) 03/04/21 18:55 Total Protein 7.1 gm/dl (6.4-8.2) 03/04/21 18:55 Albumin 3.4 gm/dl (3.4-5.0) 03/04/21 18:55 Globulin 3.7 gm/dl (2.5-4.0) 03/04/21 18:55 Albumin/Globulin Ratio 0.9 (0.9-2) 03/04/21 18:55 Lipase 110 U/L (73-393) 03/04/21 18:55 SARS-CoV-2, RNA, NAAT NEGATIVE (NEGATIVE) 03/04/21 20:07 Impressions Chest X-Ray 03/04/21 19:01 XR chest 1V portable HISTORY: Atypical Chest Pain COMPARISON: Chest 10/17/2019. FINDINGS: No pneumothorax. No pleural effusions. The heart remains mildly enlarged. Is left-sided dual-chamber pacemaker. A few bibasilar linear densities consistent with subsegmental atelectasis. No evidence for pulmonary edema. No new focal lung consolidations. Old, healed left clavicle fracture. Emphysema persists. IMPRESSION: No significant change compared to the prior study. No acute process. Car diomegaly and emphysema are again noted. ACT 112: Negative or not required by law. Electronically signed by: Cristian Madera M.D. 03/04/2021 7:37 PM Code Status & VTE Plan Code Status Full code VTE Prophylaxis Plan VTE Prophylaxis will be ordered: Yes PG Care Time/CCT Total # of Minutes Spent Total Time Spent with Patient: Total time spent is greater than 50% in coordination of care (as documented) at patient's floor/unit and/or counseling patient: Coding Level of Care Code 59021 Initial Inpt Care Lvl 3 Diagnoses Chest pain R07.9 Chest pain type: unspecified Atrial fibrillation with RVR I48.91 COPD (chronic obstructive pulmonary disease) J44.9 BPH with obstruction/lower urinary tract symptoms N40.1; N13.8 Hypertension I10 Chronic kidney disease, stage II (mild) N18.2 Hyperlipidemia E78.5 Hypothyroidism E03.9 (1) Chest pain Chest pain type: unspecified Qualified Code(s): R07.9 - Chest pain, unspecified
[2021-03-04 22:02] LABS: Magnesium 2.1 mg/dl (1.8-2.4)
[2021-03-05] MEDS ORDERED: METOPROLOL TARTRATE 1 MG/ML VIAL IV PRN (00:54)
[2021-03-05] MEDS ORDERED: ONDANSETRON INJ 2 MG/ML 2 ML VIAL IV PRN (00:54)
[2021-03-05] MEDS ORDERED: ACETAMINOPHEN 325 MG TAB PO PRN (00:54)
[2021-03-05] MEDS ORDERED: NSS + 20MEQ KCL 20 MEQ/1,000 ML BAG IV SCH (01:15)
[2021-03-05] MEDS ORDERED: RIVAROXABAN 20 MG TAB PO ONE (02:15)
[2021-03-05] MEDS: METOPROLOL SUCC 50MG EXT REL TAB PO SCH ×3 (02:38→22:46)
[2021-03-05 04:23] LABS: Basophils # (auto) 0.08 K/uL (0-0.2); Eosinophils # (auto) 0.29 K/uL (0-0.5); Eosinophils % (auto) 3.5 %; Hematocrit (blood only) 37.9 % (42-52); Hemoglobin 12.3 g/dL (14.0-18.0); Immature Granulocytes # (auto) 0.03 K/uL (0.00-0.02); Immature Granulocytes % (auto) 0.4 %; Lymphocytes # (auto) 2.65 K/uL (1.2-3.4); Mean Corpuscular Hemoglobin 29.8 pg (25-34); Mean Corpuscular Hgb Conc 32.5 g/dL (32-36); Mean Corpuscular Volume 91.8 fL (80-100); Mean Platelet Volume 9.6 fL (7.4-10.4); Monocytes # (auto) 0.78 K/uL (0.11-0.59); Monocytes % (auto) 9.4 %; Neutrophils # (auto) 4.44 K/uL (1.4-6.5); Neutrophils % (auto) 53.7 %; Platelet Count 272 K/uL (130-400); RDW Coefficient of Variation 13.5 % (11.5-14.5); RDW Standard Deviation 44.8 fL (36.4-46.3); Red Blood Count 4.13 M/uL (4.7-6.1); White Blood Count 8.27 K/uL (4.8-10.8)
[2021-03-05 04:56] LABS: Albumin Globulin Ratio 0.9 (0.9-2); Albumin Level 2.9 gm/dl (3.4-5.0); BUN Creatinine Ratio 16.8 (10-20); Bilirubin,Total 0.5 mg/dl (0.2-1); Calcium 8.3 mg/dl (8.5-10.1); Est GFR (Non-African American) 55.2 ml/min; Globulin 3.3 gm/dl (2.5-4.0); Magnesium 2.2 mg/dl (1.8-2.4); Potassium 4.4 mmol/L (3.5-5.1); Total Protein 6.2 gm/dl (6.4-8.2)
[2021-03-05] MEDS: LEVOTHYROXINE SODIUM 50 MCG TABLET PO SCH (06:46)
[2021-03-05] MEDS: UMECLIDINIUM BROMIDE 62.5MCG/BLISTER 7 PUFFS/INHALER INH SCH ×2 (08:54→09:00)
[2021-03-05] MEDS: MAGNESIUM CHLORIDE 64MG DELAYED REL TAB PO SCH (08:54)
[2021-03-05] MEDS: ADVANCED PROBIOTIC 1250 MG CAPSULE PO SCH (08:54)
[2021-03-05] MEDS ORDERED: NON-FORMULARY MEDICATION (Coenzyme Q10 [Co Q-10] 10 mg Capsule) PO SCH (09:00)
[2021-03-05] MEDS: DIGOXIN 0.125 MG TAB PO SCH (09:25)
[2021-03-05] MEDS: DUTASTERIDE: ORDER AWAITING ACTION SCH ×3 (12:03→23:05)
--- NOTE | 2021-03-05 13:05 | Electrocardiogram Report ---
Test Reason : Blood Pressure : / mmHG Vent. Rate : 109 BPM Atrial Rate : 312 BPM P-R Int : 000 ms QRS Dur : 090 ms QT Int : 316 ms P-R-T Axes : 000 000 100 degrees QTc Int : 425 ms atrial flutter with rapid ventricular response Septal infarct (cited on or before 04-MAR-2021) Abnormal ECG Confirmed by Rafael Benavides ([id number] on 03/05/2021 1:05:10 PM Referred By: REFERRED SELF Confirmed By:Govind Benavides
--- NOTE | 2021-03-05 13:05 | Electrocardiogram Report ---
Test Reason : Blood Pressure : / mmHG Vent. Rate : 143 BPM Atrial Rate : 286 BPM P-R Int : 000 ms QRS Dur : 086 ms QT Int : 292 ms P-R-T Axes : 087 001 156 degrees QTc Int : 450 ms Atrial flutter with 2:1 A-V conduction Marked ST abnormality, possible inferior subendocardial injury Abnormal ECG When compared with ECG of 17-OCT-2019 19:13, Vent. rate has increased BY [address] now depressed in Inferior leads ST now depressed in Anterolateral leads T wave inversion now evident in Lateral leads Confirmed by Rafael Benavides ([id number]) on 03/05/2021 1:05:23 PM Referred By: REFERRED SELF Confirmed By:Govind Benavides
--- NOTE | 2021-03-05 13:06 | Electrocardiogram Report ---
Test Reason : Blood Pressure : / mmHG Vent. Rate : 099 BPM Atrial Rate : 085 BPM P-R Int : 000 ms QRS Dur : 086 ms QT Int : 350 ms P-R-T Axes : 000 001 089 degrees QTc Int : 449 ms Atrial fibrillation Abnormal ECG When compared with ECG of 04-MAR-2021 19:07, (unconfirmed) Atrial fibrillation has replaced Electronic ventricular pacemaker Confirmed by Rafael Benavides ([id number]) on 03/05/2021 1:06:10 PM Referred By: REFERRED SELF Confirmed By:Govind Benavides
--- NOTE | 2021-03-05 13:07 | Electrocardiogram Report ---
Test Reason : Blood Pressure : / mmHG Vent. Rate : 089 BPM Atrial Rate : 084 BPM P-R Int : 000 ms QRS Dur : 088 ms QT Int : 370 ms P-R-T Axes : 000 005 084 degrees QTc Int : 450 ms Atrial fibrillation with occasional ventricular-paced complexes Abnormal ECG When compared with ECG of 04-MAR-2021 19:00, (unconfirmed) Electronic ventricular pacemaker has replaced Atrial fibrillation Confirmed by Rafael Benavides ([id number]) on 03/05/2021 1:06:51 PM Referred By: REFERRED SELF Confirmed By:Govind Benavides
--- NOTE | 2021-03-05 13:10 | Electrocardiogram Report ---
Test Reason : Blood Pressure : / mmHG Vent. Rate : 097 BPM Atrial Rate : 098 BPM P-R Int : 000 ms QRS Dur : 088 ms QT Int : 360 ms P-R-T Axes : 000 000 085 degrees QTc Int : 457 ms Atrial fibrillation Nonspecific ST abnormality Abnormal ECG When compared with ECG of 04-MAR-2021 19:13, (unconfirmed) No significant change was found Confirmed by Rafael Benavides ([id number]) on 03/05/2021 1:10:37 PM Referred By: REFERRED SELF Confirmed By:Govind Benavides
--- NOTE | 2021-03-05 14:21 | Electrocardiogram Report ---
Test Reason : Blood Pressure : / mmHG Vent. Rate : 091 BPM Atrial Rate : 234 BPM P-R Int : 000 ms QRS Dur : 090 ms QT Int : 330 ms P-R-T Axes : 000 -01 106 degrees QTc Int : 405 ms Atrial fibrillation with occasional ventricular-paced complexes Abnormal ECG When compared with ECG of 04-MAR-2021 20:03, (unconfirmed) Electronic ventricular pacemaker has replaced Atrial fibrillation Confirmed by Rafael Benavides ([id number]) on 03/05/2021 2:21:14 PM Referred By: REFERRED SELF Confirmed By:Govind Benavides
--- NOTE | 2021-03-05 22:27 | Hospitalist Progress Note ---
Date of Service March 05, 2021 Assessment & Plan (1) Chest pain: Plan: Chest pain/palpitations/atrial fibrillation with RVR- Rate was somewhat improved with diltiazem 25 mg IV x1 given by the ED In ER, received metoprolol tartrate 50 mg p.o. x1 now. increased his baseline dosing from 25 mg p.o. twice daily to 50 mg p.o. twice daily will continue this as HR appears controlled. Continue digoxin Stop hydralazine Give Klor-Con 40 mEq p.o. x1 now Lopressor 5 mg IV every 4 hours as needed heart rate greater than 110 Continue Xarelto 20 mg at bedtime If continues to be controlled, will discharge in AM. (2) Atrial fibrillation with RVR: Plan: See above (3) COPD (chronic obstructive pulmonary disease): Plan: Continue Spiriva (4) BPH with obstruction/lower urinary tract symptoms: Plan: Continue dutasteride and alfuzosin (5) Hypertension: Plan: See above (6) Chronic kidney disease, stage II (mild): Plan: Creatinine 1.50 upon admission, with range 1.44-1.90 Follow serially (7) Hyperlipidemia: Plan: Continue atorvastatin (8) Hypothyroidism: Plan: Continue levothyroxine Admission and Anticipated Discharge Date Admission Date: March 04, 2021 Subjective 75 yo male reports feeling well. No new complaints. Review of Systems Review of Systems: All systems reviewed & are unremarkable except as noted in HPI & below Physical Exam Physical Exam: The patient is awake, alert and oriented 3, well developed and well nourished, normocephalic and atraumatic, lying in bed and in no acute distress. HEENT--PERRL, EOMI, mucous membranes and oropharynx dry. Neck--supple. No JVD. No bruits. Thyroid normal, trachea midline, no adenopathy. Heart--irregularly irregular however, normal rate. No murmurs, rubs or gallops. Lungs--clear bilaterally, no respiratory distress, no accessory muscle use. Abdomen--normal bowel sounds and soft. Nontender. Mildly distended and tympanitic Extremities--no cyanosis or clubbing. No edema. Dermatologic--normal skin turgor, normal color, no abnormal lymph nodes, no rash. Neurologic--cranial nerves II through XII grossly intact. Rheumatologic--normal range of motion. Psychiatric--normal affect. Results & Data Results & Data ([facility]) Vital Signs (Past 12 Hours) Vital Signs Pulse Resp BP Pulse Ox 03/05/21 18:54 80 16 122/66 99 03/05/21 12:23 90 20 164/79 H 96 PG Care Time/CCT Total # of Minutes Spent Total Time Spent with Patient: Total time spent is greater than 50% in coordination of care (as documented) at patient's floor/unit and/or counseling patient: Coding Level of Care Code 49544 Subseq Hosp Care Lvl 2 Diagnoses Chest pain R07.9 Chest pain type: unspecified Atrial fibrillation with RVR I48.91 COPD (chronic obstructive pulmonary disease) J44.9 BPH with obstruction/lower urinary tract symptoms N40.1; N13.8 Hypertension I10 Chronic kidney disease, stage II (mild) N18.2 Hyperlipidemia E78.5 Hypothyroidism E03.9 (1) Chest pain Chest pain type: unspecified Qualified Code(s): R07.9 - Chest pain, unspecified
[2021-03-05] MEDS: ATORVASTATIN 40 MG TAB PO SCH (22:46)
[2021-03-05] MEDS: RIVAROXABAN 20 MG TAB PO SCH (22:47)
[2021-03-05] MEDS: ALFUZOSIN HCL 10 MG TAB PO SCH (22:48)
[2021-03-05] MEDS: DUTASTERIDE PO SCH (23:34)
[2021-03-06] MEDS: LEVOTHYROXINE SODIUM 50 MCG TABLET PO SCH (05:29)
[2021-03-06 06:54] LABS: Basophils # (auto) 0.09 K/uL (0-0.2); Basophils % (auto) 1.2 %; Eosinophils # (auto) 0.27 K/uL (0-0.5); Eosinophils % (auto) 3.6 %; Hematocrit (blood only) 39.2 % (42-52); Hemoglobin 12.7 g/dL (14.0-18.0); Immature Granulocytes # (auto) 0.03 K/uL (0.00-0.02); Immature Granulocytes % (auto) 0.4 %; Lymphocytes % (auto) 33.4 %; Mean Corpuscular Hemoglobin 29.7 pg (25-34); Mean Corpuscular Hgb Conc 32.4 g/dL (32-36); Mean Corpuscular Volume 91.8 fL (80-100); Mean Platelet Volume 9.6 fL (7.4-10.4); Monocytes # (auto) 0.65 K/uL (0.11-0.59); Monocytes % (auto) 8.7 %; Neutrophils # (auto) 3.95 K/uL (1.4-6.5); Neutrophils % (auto) 52.7 %; Platelet Count 267 K/uL (130-400); RDW Coefficient of Variation 13.6 % (11.5-14.5); RDW Standard Deviation 45.2 fL (36.4-46.3); Red Blood Count 4.27 M/uL (4.7-6.1); White Blood Count 7.49 K/uL (4.8-10.8)
[2021-03-06 07:20] LABS: Albumin Level 2.8 gm/dl (3.4-5.0); BUN Creatinine Ratio 15.1 (10-20); Calcium 8.4 mg/dl (8.5-10.1); Creatinine Clr Calc Pharmacy 49.5 ml/min; Est GFR (African American) 59.3 ml/min; Est GFR (Non-African American) 51.2 ml/min; Magnesium 2.2 mg/dl (1.8-2.4)
[2021-03-06 07:35] LABS: Albumin Globulin Ratio 0.8 (0.9-2); Bilirubin,Total 0.6 mg/dl (0.2-1); Globulin 3.4 gm/dl (2.5-4.0); Total Protein 6.2 gm/dl (6.4-8.2)
[2021-03-06] MEDS: METOPROLOL SUCC 50MG EXT REL TAB PO SCH ×2 (08:06→20:08)
[2021-03-06] MEDS: ADVANCED PROBIOTIC 1250 MG CAPSULE PO SCH (08:07)
[2021-03-06] MEDS: MAGNESIUM CHLORIDE 64MG DELAYED REL TAB PO SCH (08:07)
[2021-03-06] MEDS: UMECLIDINIUM BROMIDE 62.5MCG/BLISTER 7 PUFFS/INHALER INH SCH (08:08)
[2021-03-06] MEDS ORDERED: DUTASTERIDE PO SCH ×2 (09:00→23:00)
--- NOTE | 2021-03-06 11:34 | Cardiology Consultation ---
Date of Consultation March 06, 2021 Assessment & Plan (1) Atrial fibrillation with RVR: (2) Chest pain: (3) Hyperlipidemia: (4) Dyspnea: (5) Hypertension: Mr. Ocampo's heart rate is better controlled at that this point. Unfortunately, he does not tolerate afib very well and continues to feel quite symptomatic. He does have some mild ST depressions in his lateral leads that have improved with rate control. His troponin on arrival in the ED was normal. His blood pressure is well controlled with the increase in metoprolol and discontinuation of hydralazine. His trigger appears to have been exertional with picking up his dog and walking around a park. His electrolytes were wnl, TSH was wnl. Risks and benefits of cardioversion were discussed and patient was agreeable to proceeding. Dr. Benavides will perform the cardioversion in the morning. He will be NPO with meds after MN. His last device interrogation showed an Afib burden of under 1% and the longest episode of afib was under 4 hours. In the past Mr. Ocampo has demonstrated autonomic dysfunction with elevated blood pressures during the night while supine and then lower pressures in the morning. He had been trying to correct this with taking hydralazine at 0100 which lead to morning hypotension. It was decided that the higher nocturnal pressures should be tolerated and not corrected to avoid the morning hypotension. History of Present Illness Attending Physician: Blessing Quintanilla MD History of Present Illness Mr. Ocampo presented to the ED 03/04 due to chest heaviness, sob and elevated heart rate. In the ED, he was in an 2:1 atrial flutter with a heart rate in the 140s of which he has a history. At home he had taken an extra metoprolol and digoxin which did not help. He is anticoagulated with Xeralto and has not had any interruptions in his AC. EMS noted he was in in atrial fibrillation with RVR in the field, on arrival to the ED was noted to be in an atrial flutter with 2-1 block. Today he is in a rate controlled Afib. Historically, he does not tolerate afib very well but has generally not stayed in that rhythm very long, returning to sinus. This is longer than he generally has been in it before. His rate was controlled with IV diltiazem x1 in the ED and his metoprolol has been increased. His hydralazine was discontinued. He notes that he had cataract surgery a few days before and also just before the palpitations started he was picking his dog up and carrying him around a park which is more exertion than he is used to. Heavy exertion has been a trigger for him in the past. He continues to have chest heaviness and sob this morning. He does not think he would be able to walk out to his car. Allergies Allergy/AdvReac Type Severity Reaction Status Date / Time No Known Allergies Allergy Verified 03/04/21 19:40 Home Medications Medication Instructions Recorded Confirmed Type atorvastatin 40 mg tablet 40 mg PO HS 09/22/18 03/04/21 History levothyroxine 50 mcg tablet 50 mcg PO QAM 09/22/18 03/04/21 History albuterol sulfate 90 mcg/actuation 2 puff INHALATION Q6H PRN 12/23/18 03/04/21 History aerosol inhaler (Ventolin HFA) digoxin 125 mcg (0.125 mg) tablet 125 mcg PO 4XWK tab 10/12/19 03/04/21 History hydralazine 10 mg tablet See Rx Instructions .ROUTE .COMPLEX 10/12/19 03/04/21 History metoprolol succinate 25 mg 25 mg PO BID 10/12/19 03/04/21 History tablet,extended release 24 hr rivaroxaban 20 mg tablet (Xarelto) 20 mg PO HS 10/17/19 03/04/21 History tiotropium bromide 18 mcg capsule 18 mcg INHALATION DAILY 10/17/19 03/04/21 History with inhalation device (Spiriva with HandiHaler) ergocalciferol (vitamin D2) 1,250 1,250 mcg PO .COMPLEX #21 cap 10/21/20 03/04/21 Rx mcg (50,000 unit) capsule alfuzosin 10 mg tablet,extended 10 mg PO DAILY #90 tab 11/12/20 03/04/21 Rx release 24 hr dutasteride 0.5 mg capsule 0.5 mg PO DAILY #90 cap 11/12/20 03/04/21 Rx coenzyme Q10 10 mg capsule (Co 10 mg PO DAILY 03/04/21 03/04/21 History Q-10) lactobacillus combination no.4 3 3,000 mmu cells PO DAILY 03/04/21 03/04/21 History billion cell capsule (Probiotic) levocarnitine 500 mg tablet 500 mg PO DAILY 03/04/21 03/04/21 History (L-Carnitine) magnesium chloride 75 mg PO DAILY 03/04/21 03/04/21 History Patient History Medical History Anemia Atrial fibrillation BPH (benign prostatic hyperplasia) 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, stage II (mild) Chronic obstructive pulmonary disease "MILD" GERD (gastroesophageal reflux disease) Hyperlipidemia Hypertension Hypothyroidism Peripheral neuropathy Tachycardia Temporomandibular joint disorder Surgical History Fusion of spine LUMBAR H/O hand surgery LEFT H/O knee surgery "MULTIPLE LEFT KNEE SURGERY" History of anesthesia reaction WAS TOLD "I WAS HARD TO SEDATE DURING COLONOSCOPY 15 YEARS AGO" History of cardiac cath NO STENTS History of colonoscopy History of herniorrhaphy History of nasal septoplasty History of tonsillectomy History of tooth extraction Family History Other No significant family history Social History Smoking Status: Former smoker Tobacco Type: Cigarettes packs per day: 2; Years Smoked: 52; Second Hand Exposure: No; Hx Alcohol Use: No Hx Substance Use: No Preferred Language: Palauan Communication Ability: Effective Furniture Cleaner Required: No Beliefs That Will Affect Care: None marital status: Current Living Situation: Spouse How many Children do You have: 4 Feels Safe at Home: Yes Assistive Devices: None Review of Systems Review of Systems: All systems reviewed & are unremarkable except as noted in HPI & below Physical Exam Constitutional: WD/WN, vitals as above Respiratory: normal respiratory effort, lungs clear to auscultation Cardiovascular: Rate/Rhythm: + abnormal rhythm Heart Sounds: normal S1 and normal S2 Extremities: no edema Results & Data ([facility]) Vital Signs (Past 12 Hours) Vital Signs Temp Pulse Pulse Resp BP Pulse Ox 03/06/21 08:00 78 03/06/21 07:41 68 18 121/74 95 03/06/21 04:21 36.5 C 69 18 100/69 96 (1) Chest pain Chest pain type: unspecified Qualified Code(s): R07.9 - Chest pain, unspecified
--- NOTE | 2021-03-06 14:25 | Electrocardiogram Report ---
Test Reason : Blood Pressure : / mmHG Vent. Rate : 075 BPM Atrial Rate : 075 BPM P-R Int : 000 ms QRS Dur : 090 ms QT Int : 388 ms P-R-T Axes : 000 019 006 degrees QTc Int : 433 ms Atrial fibrillation with frequent ventricular-paced complexes Abnormal ECG When compared with ECG of 05-MAR-2021 12:22, Vent. rate has decreased BY 16 BPM Confirmed by Rafael Benavides ([id number]) on 03/06/2021 2:25:15 PM Referred By: REFERRED SELF Confirmed By:Govind Benavides
--- NOTE | 2021-03-06 18:32 | Hospitalist Progress Note ---
Date of Service March 06, 2021 Assessment & Plan (1) Atrial fibrillation with RVR: Plan: Presented with rapid atrial flutter and fibrillation, associated SOB and CP. Rate improved initially with dilt IV bolus Rates now controlled with increased dose of metoprolol, but very symptomatic with his Afib -Cardio consult appreciated-plan for DCCV tomorrow NPO after midnight -continue digoxin continue Xarelto monitor on tele (2) Atrial flutter with rapid ventricular response: Plan: as above (3) Chest pain: Plan: secondary to rapid Afib resolved continue metoprolol trop neg (4) COPD (chronic obstructive pulmonary disease): Plan: Continue Spiriva (5) BPH with obstruction/lower urinary tract symptoms: Plan: Continue dutasteride and alfuzosin (6) Hypertension: Plan: BPs stable continue metoprolol hold home hydralazine (7) Chronic kidney disease, stage II (mild): Plan: Creatinine 1.50 upon admission, with range 1.44-1.90 now normal -Avoid nephrotoxins -renally dose meds when appropriate -follow BMP (8) Hyperlipidemia: Plan: Continue atorvastatin (9) Hypothyroidism: Plan: Continue levothyroxine TSH here 3.4 Plan: DVT Proph-Xarelto Dispo-continue dstay on PCU, possible dc to home tomorrow after cardioversion Admission and Anticipated Discharge Date Admission Date: March 04, 2021 Subjective Feeling palpitations even at rest. He is very aware of his heart palpitations and of being in Afib. He reports his rates are in the 90s now and when he goes to the bathroom it goes to the 120s. Has some SOB with higher heart rates. No nausea, no ab dpains, is eating and moving bowels. Discussed his care with Cardiology INSULATION BOARD BACK TENDER-plan for DCCV tomorrow. Review of Systems Review of Systems: All systems reviewed & are unremarkable except as noted in HPI & below Physical Exam Constitutional: WD/WN, vitals as above Eyes: + anicteric sclerae Neck: trachea midline, no thyromegaly Respiratory: normal respiratory effort, lungs clear to auscultation Cardiovascular: Rate/Rhythm: regular rate and + irregularly irregular Heart Sounds: no murmur Extremities: no edema Chest (Breasts): Chest: normal inspection of chest Gastrointestinal (Abdomen): normal bowel sounds, soft, nontender, no hepatosplenomegaly Musculoskeletal: Extremities: extremities normal to inspection; no cyanosis and no clubbing Skin: no rashes, warm and dry Neurologic: moves all extremities and awake; no focal motor deficits Psychiatric: A+Ox3, euthymic affect Lymphatic: no lymphedema Results & Data Results & Data ([facility]) Vital Signs (Past 12 Hours) Vital Signs Temp Pulse Pulse Resp BP Pulse Ox 03/06/21 17:50 96 H 03/06/21 15:57 36.7 C 86 16 153/85 H 97 03/06/21 08:00 78 03/06/21 07:41 68 18 121/74 95 Laboratory Results 03/06/21 03/06/21 03/06/21 Range/Units 06:33 06:33 06:33 WBC 7.49 (4.8-10.8) K/uL RBC 4.27 L (4.7-6.1) M/uL Hgb 12.7 L (14.0-18.0) g/dL Hct 39.2 L (42-52) % MCV 91.8 (80-100) fL MCH 29.7 (25-34) pg MCHC 32.4 (32-36) g/dL RDW Std Deviation 45.2 (36.4-46.3) fL RDW Coeff of [place] 13.6 (11.5-14.5) % Plt Count 267 (130-400) K/uL MPV 9.6 (7.4-10.4) fL Immature Gran % (Auto) 0.4 % Neut % (Auto) 52.7 % Lymph % (Auto) 33.4 % [place] % (Auto) 8.7 % Eos % (Auto) 3.6 % Baso % (Auto) 1.2 % Neut # (Auto) 3.95 (1.4-6.5) K/uL Lymph # (Auto) 2.50 (1.2-3.4) K/uL [place] # (Auto) 0.65 H (0.11-0.59) K/uL Eos # (Auto) 0.27 (0-0.5) K/uL Baso # (Auto) 0.09 (0-0.2) K/uL Immature Gran # (Auto) 0.03 H (0.00-0.02) K/uL Sodium 140 (136-145) mmol/L Potassium 4.0 (3.5-5.1) mmol/L Chloride 111 H (98-107) mmol/L Carbon Dioxide 25 (21-32) mmol/L Anion Gap 4.0 (3-11) BUN 20 H (7-18) mg/dl Creatinine 1.33 (0.6-1.4) mg/dl Est Cr Clr Drug Dosing 49.5 ml/min Est GFR ( Amer) 59.3 ml/min Est GFR (Non-Af Amer) 51.2 ml/min BUN/Creatinine Ratio 15.1 (10-20) Glucose 99 (70-99) mg/dl Calcium 8.4 L (8.5-10.1) mg/dl Magnesium 2.2 (1.8-2.4) mg/dl Total Bilirubin 0.6 (0.2-1) mg/dl AST 11 L (15-37) U/L ALT 23 (12-78) U/L Alkaline Phosphatase 59 (45-117) U/L Total Protein 6.2 L (6.4-8.2) gm/dl Albumin 2.8 L (3.4-5.0) gm/dl Globulin 3.4 (2.5-4.0) gm/dl Albumin/Globulin Ratio 0.8 L (0.9-2) TSH 3.450 (0.300-4.500) uIu/ml PG Care Time/CCT Total # of Minutes Spent Total Time Spent with Patient: Total time spent is greater than 50% in coordination of care (as documented) at patient's floor/unit and/or counseling patient: Coding Level of Care Code 11532 Subseq Hosp Care Lvl 3 Diagnoses Chest pain R07.9 Chest pain type: unspecified Atrial fibrillation with RVR I48.91 COPD (chronic obstructive pulmonary disease) J44.9 BPH with obstruction/lower urinary tract symptoms N40.1; N13.8 Hypertension I10 Chronic kidney disease, stage II (mild) N18.2 Hyperlipidemia E78.5 Hypothyroidism E03.9 Atrial flutter with rapid ventricular response I48.92 (1) Chest pain Chest pain type: unspecified Qualified Code(s): R07.9 - Chest pain, unspecified
[2021-03-06] MEDS: RIVAROXABAN 20 MG TAB PO SCH (20:08)
[2021-03-06] MEDS: ATORVASTATIN 40 MG TAB PO SCH (20:08)
[2021-03-06] MEDS: DUTASTERIDE PO SCH (22:25)
[2021-03-06] MEDS: ALFUZOSIN HCL 10 MG TAB PO SCH (22:26)
[2021-03-07] MEDS: LEVOTHYROXINE SODIUM 50 MCG TABLET PO SCH (06:13)
--- NOTE | 2021-03-07 07:16 | Anesthesiology Consultation ---
Date of Service March 07, 2021 Assessment & Plan Chart Review Chart Review: Acceptable Risk for Surgery and Patient NOT seen in Pre Admission Testing Consults Requested none ASA ASA3 Proposed Anesthesia Anesthesia Type: MAC Risk / Benefits Reviewed With: PT / POA / Parent / Guardian, Accepts Plan and Informed Consent Obtained History Surgery Operation Date: 03/07/21 07:30 Proposed Procedures p Cardioversion Resource Director w/Anesthesia - Leobardo Benavides MD Height/Weight Height: 5 ft 11 in Weight: 91.2 kg Allergies Allergy/AdvReac Type Severity Reaction Status Date / Time No Known Allergies Allergy Verified 03/04/21 19:40 Medications Home Medications Medication Instructions Recorded Confirmed Last Taken atorvastatin 40 mg tablet 40 mg PO HS 09/22/18 03/04/21 03/03/21 levothyroxine 50 mcg tablet 50 mcg PO QAM 09/22/18 03/04/21 03/04/21 albuterol sulfate 90 mcg/actuation 2 puff INHALATION Q6H PRN 12/23/18 03/04/21 Unknown aerosol inhaler (Ventolin HFA) digoxin 125 mcg (0.125 mg) tablet 125 mcg PO 4XWK tab 10/12/19 03/04/21 03/03/21 hydralazine 10 mg tablet See Rx Instructions .ROUTE .COMPLEX 10/12/19 03/04/21 1 05/04/20 metoprolol succinate 25 mg 25 mg PO BID 10/12/19 03/04/21 03/04/21 tablet,extended release 24 hr rivaroxaban 20 mg tablet (Xarelto) 20 mg PO HS 10/17/19 03/04/21 03/03/21 tiotropium bromide 18 mcg capsule 18 mcg INHALATION DAILY 10/17/19 03/04/21 03/04/21 with inhalation device (Spiriva with HandiHaler) ergocalciferol (vitamin D2) 1,250 1,250 mcg PO .COMPLEX #21 cap 10/21/20 03/04/21 Unknown mcg (50,000 unit) capsule alfuzosin 10 mg tablet,extended 10 mg PO DAILY #90 tab 11/12/20 03/04/21 03/03/21 release 24 hr dutasteride 0.5 mg capsule 0.5 mg PO DAILY #90 cap 11/12/20 03/04/21 03/03/21 coenzyme Q10 10 mg capsule (Co 10 mg PO DAILY 03/04/21 03/04/21 03/04/21 Q-10) lactobacillus combination no.4 3 3,000 mmu cells PO DAILY 03/04/21 03/04/21 03/04/21 billion cell capsule (Probiotic) levocarnitine 500 mg tablet 500 mg PO DAILY 03/04/21 03/04/21 03/04/21 (L-Carnitine) magnesium chloride 75 mg PO DAILY 03/04/21 03/04/21 03/04/21 Active Medications Generic Name Dose Route Start Last Admin Trade Name Freq PRN Reason Stop Dose Admin Alfuzosin HCl 10 mg 03/05/21 23:00 03/06/21 22:26 Alfuzosin Hcl 10 Mg Tab PO 04/04/21 22:59 10 mg DAILY@2300 JASWANT Administration Atorvastatin Calcium 40 mg 03/05/21 21:00 03/06/21 20:08 Atorvastatin 40 Mg Tab PO 04/04/21 20:59 40 mg HS JASWANT Administration Digoxin 0.125 mg 03/05/21 09:00 03/05/21 09:25 Digoxin 0.125 Mg Tab PO 04/04/21 08:59 0.125 mg SuMoWeFr@0900 JASWANT Administration Dutasteride 1 ea 03/05/21 23:45 03/06/21 22:25 Dutasteride PO 04/04/21 23:44 1 ea DAILY@2300 JASWANT Administration Lactobacillus Acidoph/Casei/Rhamnos 2 cap 03/05/21 09:00 03/06/21 08:07 Advanced Probiotic 1250 Mg Capsule PO 04/04/21 08:59 2 cap DAILY JASWANT Administration Levothyroxine Sodium 50 mcg 03/05/21 06:30 03/07/21 06:13 Levothyroxine Sodium 50 Mcg Tablet PO 04/04/21 06:29 50 mcg DAILYBB JASWANT Administration Magnesium Chloride 64 mg 03/05/21 09:00 03/06/21 08:07 Magnesium Chloride 64mg Delayed Rel Tab PO 04/04/21 08:59 64 mg DAILY JASWANT Administration Protocol Metoprolol Succinate 50 mg 03/05/21 01:30 03/06/21 20:08 Metoprolol Succ 50mg Ext Rel Tab PO 04/04/21 01:29 50 mg BID JASWANT Administration Rivaroxaban 20 mg 03/05/21 21:00 03/06/21 20:08 Rivaroxaban 20 Mg Tab PO 04/04/21 20:59 20 mg HS JASWANT Administration Umeclidinium [place] 1 puffs 03/05/21 09:00 03/06/21 08:08 Umeclidinium [place] 62.5mcg/Blister 7 Puffs/Inhaler INH 04/04/21 08:59 Not Given DAILY JASWANT Protocol Past Medical History Medical History Anemia Atrial fibrillation BPH (benign prostatic hyperplasia) 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, stage II (mild) Chronic obstructive pulmonary disease "MILD" GERD (gastroesophageal reflux disease) Hyperlipidemia Hypertension Hypothyroidism Peripheral neuropathy Tachycardia Temporomandibular joint disorder Exercise / Class Metabolic Activity II 4-5 Yardwork/Stairs/Walk up hill Past Family History Family History Other No significant family history Past Surgical History Surgical History Fusion of spine LUMBAR H/O hand surgery LEFT H/O knee surgery "MULTIPLE LEFT KNEE SURGERY" History of anesthesia reaction WAS TOLD "I WAS HARD TO SEDATE DURING COLONOSCOPY 15 YEARS AGO" History of cardiac cath NO STENTS History of colonoscopy History of herniorrhaphy History of nasal septoplasty History of tonsillectomy History of tooth extraction Past Anesthesia History No Hx of Anesthesia Complications and No Family Hx of Anesthesia Complications History of PONV No Hx of PONV and No Hx of Motion Sickness Social History Smoking Status: Former smoker tobacco type: cigarettes Do You Dip or Chew Tobacco: No Hx Alcohol Use: No alcohol intake frequency: holidays/special occasions only Hx Substance Use: No substance use type: does not use Physical Exam Vital Signs Last Vital Signs Temp 36.5 C 03/07/21 03:08 Pulse 83 03/07/21 03:08 Resp 18 03/07/21 03:08 BP 128/74 03/07/21 03:08 Pulse Ox 95 03/07/21 03:08 ENMT Mouth: no dentition abnormality Thyromental Distance: > or= 3.5 Finger Breadths Mallampati Class: II Neck normal visual inspection Respiratory normal respiratory effort Auscultation: lungs clear to auscultation bilaterally Cardiovascular Rate/Rhythm: regular rate; + abnormal rhythm (afib on monitor) Chest (Breasts) Chest: + pacemaker (left chest wall) Psychiatric Orientation: alert Testing Laboratory Results 03/06/21 06:33 03/06/21 06:33 Electrocardiogram Date: 03/06/21 Findings: + AFIB @ Chest X-Ray Date: 03/04/21 Findings: + NAD Pulmonary Function Test Date: 08/02/18 mild copd
--- NOTE | 2021-03-07 07:48 | Cardioversion ---
Date of Service March 07, 2021 PG Electrical Cardioversion Rp Electrical Cardioversion Report Procedure performed: Cardioversion Indication: Atrial fibrillation Staff blast furnace keeper: Rafael Benavides MD Procedure in detail: The patient was informed of the risks benefits and alternatives to the intended procedure. He understood such which proceed. He was taken to the cardiac catheterization suite holding area. A general anesthetic was administered by the Anesthesiology Service. Once appropriately anesthetized, the patient was cardioverted using 300 joules delivered in a biphasic fashion. This returned the patient to sinus rhythm. The patient tolerated procedure well, there were no immediate complications. Patient was neurologically intact subsequent to the procedure. Impression: Successful cardioversion from atrial fibrillationto normal sinus rhythm Coding Level of Care Code Cardioversion, elective CPT Codes Dual Lead Pacemaker System - 62454 ([id number]) Additional Codes Electrical Cardioversion Report ([id number])
--- NOTE | 2021-03-07 07:50 | Anesthesiology Progress Note ---
Date of Service March 07, 2021 Anesthesia Post Procedure Vital Signs Vital Signs: Temp Pulse Pulse Resp BP Pulse Ox 03/07/21 07:13 82 16 142/88 H 96 03/07/21 03:08 36.5 C 83 18 128/74 95 03/06/21 23:00 96 H 03/06/21 22:48 36.7 C 85 18 147/94 H 95 03/06/21 19:11 36.8 C 81 18 132/76 94 03/06/21 17:50 96 H 03/06/21 15:57 36.7 C 86 16 153/85 H 97 03/06/21 08:00 78 Transfer of Care Handoff Completed per policy Notes Mental Status: alert / awake / arousable Patient Amnestic to Procedure: Yes Nausea / Vomiting: adequately controlled Pain: adequately controlled Airway Patency, RR, SpO2: stable & adequate BP & HR: stable & adequate Hydration State: stable & adequate Anesthetic Complications: no major complications apparent
--- NOTE | 2021-03-07 08:36 | Discharge Summary ---
Date of Service March 07, 2021 Admission HPI Per Admitting Provider The patient is a 75-year-old male with a past medical history including tobacco abuse, COPD, BPH with LUTS, CKD stage II, hypertension, history of cardiac pacemaker and atrial fibrillation with RVR. Patient presents with symptoms as noted above, and upon presentation to the ED, was found to be in A. fib with RVR with rate in the 140s. From the ED the patient received the following: Diltiazem 25 mg IV x1 which dec reased heart rate 144 down to 118. Principal Diagnosis Rapid atrial flutter and fibrillation Discharge Exam Constitutional WD/WN, vitals as above Eyes + anicteric sclerae ENMT external ear and nose normal, oropharynx normal Neck trachea midline, no thyromegaly Respiratory normal respiratory effort, lungs clear to auscultation Cardiovascular RRR, no murmur, no edema Chest (Breasts) Chest: normal inspection of chest Gastrointestinal (Abdomen) normal bowel sounds, soft, nontender, no hepatosplenomegaly Musculoskeletal Extremities: extremities normal to inspection; no cyanosis and no clubbing Skin no rashes, warm and dry Neurologic moves all extremities and awake; no focal motor deficits Psychiatric A+Ox3, euthymic affect Lymphatic no lymphedema Discharge Data Allergies Allergy/AdvReac Type Severity Reaction Status Date / Time No Known Allergies Allergy Verified 03/19/21 02:01 Consultations 03/04/21 21:15 ED Decision to Admit Stat 03/05/21 09:55 Consult Cardiology Routine Procedures Performed Operation Date: 03/07/21 07:30 Actual Procedures p Cardioversion - Leobardo Benavides MD Hospital Course (1) Atrial fibrillation with RVR: Presented with rapid atrial flutter and fibrillation, associated SOB and CP. Rate improved initially with dilt IV bolus Rates were controlled with increased dose of metoprolol, but very symptomatic with his Afib -Cardio consult appreciated-now s/p DCCV and back in sinus rhythm, feels much better -continue digoxin continue Xarelto continue increased dose of Toprol XL at 50mg bid after discharge (2) Atrial flutter with rapid ventricular response: as above (3) Chest pain: secondary to rapid Afib resolved continue metoprolol trop neg (4) COPD (chronic obstructive pulmonary disease): Continue Spiriva (5) BPH with obstruction/lower urinary tract symptoms: Continue dutasteride and alfuzosin (6) Hypertension: BPs stable continue metoprolol but increased to 50mg bid dc home hydralazine with addition of increased Toprol XL dose (7) Chronic kidney disease, stage II (mild): Creatinine 1.50 upon admission, with range 1.44-1.90 now normal -Avoid nephrotoxins -renally dose meds when appropriate (8) Hyperlipidemia: Continue atorvastatin (9) Hypothyroidism: Continue levothyroxine TSH here 3.4 DVT Proph-Xarelto Dispo-dc to home Total Time Total Time Spent Total Time Spent (In Minutes): 35 min Total Time Includes: Examination of the Patient, Discharge Planning, Medication Reconciliation and Communication With Other Providers (Cardiology) Discharge Plan Discharge Items Patient Disposition: Home - Self-Care Reason For Visit: ATRIAL FIB WITH RVR Discharge Diagnosis: Rapid Atrial fibrillation Condition on Discharge: Good Activity: Resume your previous activity Non-emergency contact: 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 Your metoprolol dose was increased to 50mg twice a day and your hydralazine was STOPPED. Pending Studies at Discharge: No Stand-Alone Forms: [facility], Smoking Cessation Medications and DC Order Prescriptions: New metoprolol succinate [Toprol XL] 50 mg tablet extended release 24 hr 50 mg PO BID Qty: 60 RF: 0 Continued alfuzosin 10 mg tablet extended release 24 hr 10 mg PO DAILY Qty: 90 RF: 3 dutasteride 0.5 mg capsule 0.5 mg PO DAILY Qty: 90 RF: 3 ergocalciferol (vitamin D2) 1,250 mcg (50,000 unit) capsule 1,250 mcg PO .COMPLEX Qty: 21 RF: 0 Spiriva with HandiHaler 18 mcg capsule, w/inhalation device 18 mcg INHALATION DAILY RF: 0 Xarelto 20 mg Tablet 20 mg PO HS RF: 0 atorvastatin 40 mg Tablet 40 mg PO HS RF: 0 levothyroxine 50 mcg Tablet 50 mcg PO QAM RF: 0 albuterol sulfate [Ventolin HFA] 90 mcg/actuation Hfa Aerosol Inhaler 2 puff INHALATION Q6H PRN (Reason: cough/congestion) RF: 0 coenzyme Q10 [Co Q-10] 10 mg Capsule 10 mg PO DAILY RF: 0 Probiotic 3 billion cell Capsule 3,000 mmu cells PO DAILY RF: 0 Discontinued metoprolol succinate 25 mg tablet extended release 24 hr 25 mg PO BID RF: 0 hydralazine 10 mg tablet See Rx Instructions .ROUTE .COMPLEX RF: 0 No Action flecainide 50 mg tablet 50 mg PO BID RF: 0 Magnesium Powder 0 tsp PO DAILY RF: 0 Metamucil 3.4 gram/5.4 gram powder 1 tbsp PO DAILY Qty: 660 RF: 0 Discharge Orders: Discharge Order (Routine); Ordered 03/07/21 Ordered By: Blessing Quintanilla Admission Data Admit Date/Time: 03/04/21 22:00 Attending Provider: Blessing Quintanilla Admit Provider: Silvino Archibald Primary Care Provider: Dany Rodriguez Other Providers: Leobardo Benavides ; Srinivasan Villarreal Other Interventions: *Nursing Shift Assessment Last Done: 03/07/21 09:16 Discharge Summary Assessment (RN) Last Done: 03/07/21 12:27 Coding Level of Care Code D/C DAY MANAGEMENT >30 MINS Diagnoses Atrial fibrillation with RVR I48.91 Atrial flutter with rapid ventricular response I48.92 Chest pain R07.9 Chest pain type: unspecified COPD (chronic obstructive pulmonary disease) J44.9 BPH with obstruction/lower urinary tract symptoms N40.1; N13.8 Hypertension I10 Chronic kidney disease, stage II (mild) N18.2 Hyperlipidemia E78.5 Hypothyroidism E03.9
[2021-03-07 08:43] LABS: Basophils # (auto) 0.08 K/uL (0-0.2); Basophils % (auto) 1.1 %; Eosinophils # (auto) 0.21 K/uL (0-0.5); Eosinophils % (auto) 2.8 %; Hemoglobin 12.4 g/dL (14.0-18.0); Immature Granulocytes # (auto) 0.02 K/uL (0.00-0.02); Immature Granulocytes % (auto) 0.3 %; Lymphocytes # (auto) 1.95 K/uL (1.2-3.4); Lymphocytes % (auto) 25.7 %; Mean Corpuscular Hemoglobin 30.4 pg (25-34); Mean Corpuscular Hgb Conc 33.5 g/dL (32-36); Mean Corpuscular Volume 90.7 fL (80-100); Mean Platelet Volume 9.6 fL (7.4-10.4); Monocytes # (auto) 0.69 K/uL (0.11-0.59); Monocytes % (auto) 9.1 %; Neutrophils # (auto) 4.63 K/uL (1.4-6.5); Platelet Count 257 K/uL (130-400); RDW Coefficient of Variation 13.4 % (11.5-14.5); RDW Standard Deviation 44.6 fL (36.4-46.3); Red Blood Count 4.08 M/uL (4.7-6.1); White Blood Count 7.58 K/uL (4.8-10.8)
[2021-03-07] MEDS: METOPROLOL SUCC 50MG EXT REL TAB PO SCH (08:46)
[2021-03-07] MEDS: DIGOXIN 0.125 MG TAB PO SCH (08:47)
[2021-03-07] MEDS: MAGNESIUM CHLORIDE 64MG DELAYED REL TAB PO SCH (08:47)
[2021-03-07] MEDS: ADVANCED PROBIOTIC 1250 MG CAPSULE PO SCH (08:47)
[2021-03-07] MEDS: UMECLIDINIUM BROMIDE 62.5MCG/BLISTER 7 PUFFS/INHALER INH SCH (08:49)
[2021-03-07 09:13] LABS: Albumin Level 2.7 gm/dl (3.4-5.0); BUN Creatinine Ratio 19.5 (10-20); Calcium 8.3 mg/dl (8.5-10.1); Creatinine Clr Calc Pharmacy 55.4 ml/min; Est GFR (African American) 61.6 ml/min; Est GFR (Non-African American) 53.1 ml/min; Magnesium 2.2 mg/dl (1.8-2.4); Potassium 4.3 mmol/L (3.5-5.1)
[2021-03-07 09:15] LABS: Albumin Globulin Ratio 0.8 (0.9-2); Bilirubin,Total 0.4 mg/dl (0.2-1); Globulin 3.2 gm/dl (2.5-4.0); Total Protein 5.9 gm/dl (6.4-8.2)
--- NOTE | 2021-03-07 10:36 | Electrocardiogram Report ---
Test Reason : Blood Pressure : / mmHG Vent. Rate : 060 BPM Atrial Rate : 060 BPM P-R Int : 202 ms QRS Dur : 092 ms QT Int : 398 ms P-R-T Axes : 000 -08 042 degrees QTc Int : 398 ms Atrial-paced rhythm Abnormal ECG When compared with ECG of 06-MAR-2021 05:32, Electronic atrial pacemaker has replaced Electronic ventricular pacemaker Confirmed by Rafael Benavides ([id number]) on 03/07/2021 10:36:04 AM Referred By: REFERRED SELF Confirmed By:Govind Benavides
== END 2021-03-07 13:44 | disposition home or self-care (01) | DRG 309 ==
LOC: ED 18:49 → EDINP 22:00 → SUATTDRO 22:00 → EDINP 03-05 00:50 → 2S 03-05 19:45
DX: Z20.822 Contact with and (suspected) exposure to COVID-19; E03.9 Hypothyroidism, unspecified; Z87.891 Personal history of nicotine dependence; I48.91 Unspecified atrial fibrillation; N40.1 Benign prostatic hyperplasia with lower urinary tract symptoms; E78.5 Hyperlipidemia, unspecified; Z79.899 Other long term (current) drug therapy; R06.00 Dyspnea, unspecified; I48.92 Unspecified atrial flutter; Z79.890 Hormone replacement therapy; N13.8 Other obstructive and reflux uropathy; R94.31 Abnormal electrocardiogram [ECG] [EKG]; Z79.01 Long term (current) use of anticoagulants; J44.9 Chronic obstructive pulmonary disease, unspecified; R07.9 Chest pain, unspecified; I12.9 Hypertensive chronic kidney disease with stage 1 through stage 4 chronic kidney disease, or unspecified chronic kidney disease; N18.2 Chronic kidney disease, stage 2 (mild)

== ENCOUNTER 2021-03-19 00:53 | Observation (INO) ==
[2021-03-19 01:41] LABS: Basophils # (auto) 0.08 K/uL (0-0.2); Basophils % (auto) 1.1 %; Eosinophils # (auto) 0.29 K/uL (0-0.5); Eosinophils % (auto) 4.1 %; Hematocrit (blood only) 38.2 % (42-52); Hemoglobin 12.7 g/dL (14.0-18.0); Immature Granulocytes # (auto) 0.01 K/uL (0.00-0.02); Immature Granulocytes % (auto) 0.1 %; Lymphocytes # (auto) 2.28 K/uL (1.2-3.4); Lymphocytes % (auto) 32.3 %; Mean Corpuscular Hemoglobin 30.6 pg (25-34); Mean Corpuscular Hgb Conc 33.2 g/dL (32-36); Monocytes # (auto) 0.63 K/uL (0.11-0.59); Monocytes % (auto) 8.9 %; Neutrophils # (auto) 3.77 K/uL (1.4-6.5); Neutrophils % (auto) 53.5 %; Platelet Count 284 K/uL (130-400); RDW Coefficient of Variation 13.8 % (11.5-14.5); RDW Standard Deviation 46.8 fL (36.4-46.3); Red Blood Count 4.15 M/uL (4.7-6.1); White Blood Count 7.06 K/uL (4.8-10.8)
--- NOTE | 2021-03-19 01:50 | Emergency Department Note ---
Impression & Plan [facility] NAME: TUTU AMOR AGE: 75 SEX: M ARRIVES VIA: Walk-In INFORMANT: Patient ED PROVIDER(S): Kayce Chung DO CHIEF COMPLAINT: Rectal bleeding PLAN: Disposition: I [facility] Condition: Stable MEDICAL DECISION MAKING: This is a 75-year-old male patient on Xarelto who presents to the emergency department with rectal bleeding. This is started this evening. This began with an episode of constipation that was resolved with Dulcolax. Patient's H&H remained stable. He is hemodynamically stable. I discussed the case with the [facility] and they will evaluate for further management. Triage Nursing notes reviewed and agree with them Prior medical records reviewed Vital Signs: reviewed and remarkable for hypertension Differential diagnosis: Diverticulitis, hemorrhoidal bleeding, melena ER treatment provided: Diagnostics interpreted by me: ECG: Atrial paced rhythm at a rate of [address] segment elevation or signs of ischemia. There is no ectopy. Cardiac Monitoring: Paced rhythm at 60 Laboratory studies: See below HPI: 75/M arrives for evaluation of rectal bleeding. The patient developed constipation throughout the day yesterday and took a Dulcolax. He had 3 loose bowel movements but then on the fourth bowel movement noted bright red bleeding. He denies any significant abdominal pain, weakness or lightheadedness. ROS: See above HPI for pertinent positives & negatives. A total of 10 systems reviewed and were otherwise negative. PAST MEDICAL HISTORY:See Below PAST SURGICAL HISTORY:See Below FAMILY HISTORY:See Below SOCIAL HISTORY:Patient lives with his HOME MEDICATIONS:See Below ALLERGIES:See Below VITALS:See Below PHYSICAL EXAMINATION: HEENT: Head - normocephalic and atraumatic. Pupils are equal, round, and reactive to light. Extraocular eye muscles are intact, and sclera are anicteric. Nose - moist nasal mucosa without discharge. Mouth - moist buccal mucosa. Oropharynx is nonerythematous and there is no tonsillar exudate or edema noted. Neck: Supple; no cervical lymphadenopathy or JVD Heart: Regular rate and rhythm. There is a normal S1 and S2 with no murmurs, clicks, or gallops appreciated. Lungs: Clear to auscultation bilaterally with no wheezes, rales, or rhonchi. Abdomen: Soft, mild suprapubic tenderness, nondistended, with good bowel sounds. There are no palpable pulsatile masses or hepatosplenomegaly. There is no guarding, rigidity, or rebound noted. Extremities: No evidence of cyanosis, clubbing, or edema. There are easily palpable peripheral pulses. Skin: warm and dry with good turgor and no rashes. ED COURSE: Times/Reassessments: 0105: Patient was evaluated in room A10. A complete history and physical was performed. Laboratory studies were drawn as above. The patient did have a bowel movement here in the emergency department which was collected in a hat. Nursing staff summoned me to the room to assess this and question whether or not the patient had been eating beets. In fact he had been eating beets earlier in the day. The stool he produced here he describes as being much different than what he produced at home. The stool at home was bright red blood and what he produced here was more of a pink watery substance. I discussed the case with Dr. Kitchen and she will evaluate for further management. Kayce Chung DO Past Med/Surg History Medical History (Updated 03/19/21 @ 04:43 by Kayce Chung DO) Anemia Atrial fibrillation BPH (benign prostatic hyperplasia) 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, stage II (mild) Chronic obstructive pulmonary disease "MILD" GERD (gastroesophageal reflux disease) Hyperlipidemia Hypertension Hypothyroidism Peripheral neuropathy Tachycardia Temporomandibular joint disorder Surgical History Fusion of spine LUMBAR H/O hand surgery LEFT H/O knee surgery "MULTIPLE LEFT KNEE SURGERY" History of anesthesia reaction WAS TOLD "I WAS HARD TO SEDATE DURING COLONOSCOPY 15 YEARS AGO" History of cardiac cath NO STENTS History of colonoscopy History of herniorrhaphy History of nasal septoplasty History of tonsillectomy History of tooth extraction Family History Other No significant family history Social History Smoking Status: Former smoker Tobacco Type: Cigarettes packs per day: 2; Years Smoked: 52; Second Hand Exposure: No; Hx Alcohol Use: No Hx Substance Use: No Preferred Language: Hebrew Communication Ability: Effective Track Announcer Required: No Beliefs That Will Affect Care: None marital status: Current Living Situation: Spouse How many Children do You have: 4 Feels Safe at Home: Yes Assistive Devices: None Allergies Allergies Allergy/AdvReac Type Severity Reaction Status Date / Time No Known Allergies Allergy Verified 03/19/21 02:01 Home Meds Home Medications Medication Instructions Recorded Confirmed atorvastatin 40 mg tablet 40 mg PO HS 09/22/18 03/19/21 levothyroxine 50 mcg tablet 50 mcg PO QAM 09/22/18 03/19/21 albuterol sulfate 90 mcg/actuation 2 puff INHALATION Q6H PRN 12/23/18 03/19/21 aerosol inhaler (Ventolin HFA) rivaroxaban 20 mg tablet (Xarelto) 20 mg PO HS 10/17/19 03/19/21 tiotropium bromide 18 mcg capsule 18 mcg INHALATION DAILY 10/17/19 03/19/21 with inhalation device (Spiriva with HandiHaler) coenzyme Q10 10 mg capsule (Co 10 mg PO DAILY 03/04/21 03/19/21 Q-10) lactobacillus combination no.4 3 3,000 mmu cells PO DAILY 03/04/21 03/19/21 billion cell capsule (Probiotic) Magnesium Powder 0 tsp PO DAILY 03/19/21 03/19/21 flecainide 50 mg tablet 50 mg PO BID 03/19/21 03/19/21 Previous Rx's Medication Instructions Recorded ergocalciferol (vitamin D2) 1,250 1,250 mcg PO .COMPLEX #21 cap 10/21/20 mcg (50,000 unit) capsule alfuzosin 10 mg tablet,extended 10 mg PO DAILY #90 tab 11/12/20 release 24 hr dutasteride 0.5 mg capsule 0.5 mg PO DAILY #90 cap 11/12/20 metoprolol succinate 50 mg 50 mg PO BID #60 tab 03/07/21 tablet,extended release 24 hr (Toprol XL) Results & Data (ED) Vital Signs Vital Signs - 24 hr 03/19/21 00:58 03/19/21 01:12 03/19/21 01:25 Temperature 36.3 C L Temperature Source Temporal Artery Scan Pulse Rate 68 60 Pulse Rate [Right Finger] 68 Respiratory Rate 16 15 15 Respiratory Effort / Characteristics Non-Labored Spontaneous Respiratory Depth Normal Blood Pressure 156/76 H Blood Pressure [Right Arm] 172/93 H Blood Pressure Mean 102 Blood Pressure Mean [Right Arm] 119 Blood Pressure Position Sitting Pulse Oximetry 97 97 100 Oxygen Delivery Method Room Air Room Air Room Air Sepsis Recent Fever Within 48 Hours No Sepsis New/Unexplained Change in Mental Status N/A Sepsis Action Taken by Nursing No Action Required 03/19/21 03:00 03/19/21 04:37 Temperature Temperature Source Pulse Rate Pulse Rate [Right Finger] 60 69 Respiratory Rate 15 16 Respiratory Effort / Characteristics Respiratory Depth Blood Pressure Blood Pressure [Right Arm] 171/78 H 190/74 H Blood Pressure Mean Blood Pressure Mean [Right Arm] 109 112 Blood Pressure Position Pulse Oximetry 94 94 Oxygen Delivery Method Room Air Room Air Sepsis Recent Fever Within 48 Hours Sepsis New/Unexplained Change in Mental Status Sepsis Action Taken by Nursing Laboratory Data Result diagrams: 03/19/21 01:31 03/19/21 01:31 Lab Results 03/19/21 03/19/21 03/19/21 Range/Units 01:31 01:31 01:31 WBC 7.06 (4.8-10.8) K/uL RBC 4.15 L (4.7-6.1) M/uL Hgb 12.7 L (14.0-18.0) g/dL Hct 38.2 L (42-52) % MCV 92.0 (80-100) fL MCH 30.6 (25-34) pg MCHC 33.2 (32-36) g/dL RDW Std Deviation 46.8 H (36.4-46.3) fL RDW Coeff of Crystal 13.8 (11.5-14.5) % Plt Count 284 (130-400) K/uL MPV 10.0 (7.4-10.4) fL Immature Gran % (Auto) 0.1 % Neut % (Auto) 53.5 % Lymph % (Auto) 32.3 % [place] % (Auto) 8.9 % Eos % (Auto) 4.1 % Baso % (Auto) 1.1 % Neut # (Auto) 3.77 (1.4-6.5) K/uL Lymph # (Auto) 2.28 (1.2-3.4) K/uL [place] # (Auto) 0.63 H (0.11-0.59) K/uL Eos # (Auto) 0.29 (0-0.5) K/uL Baso # (Auto) 0.08 (0-0.2) K/uL Immature Gran # (Auto) 0.01 (0.00-0.02) K/uL PT 12.7 H (9.0-12.0) Seconds INR 1.3 H (0.9-1.1) APTT 35.2 H (21.0-31.0) Seconds PTT Ratio 1.3 Sodium 142 (136-145) mmol/L Potassium 3.7 (3.5-5.1) mmol/L Chloride 112 H (98-107) mmol/L Carbon Dioxide 28 (21-32) mmol/L Anion Gap 2.0 L (3-11) BUN 31 H (7-18) mg/dl Creatinine 1.56 H (0.6-1.4) mg/dl Est Cr Clr Drug Dosing 42.2 ml/min Est GFR ( Amer) 48.9 ml/min Est GFR (Non-Af Amer) 42.2 ml/min BUN/Creatinine Ratio 19.7 (10-20) Glucose 111 H (70-99) mg/dl Calcium 9.2 (8.5-10.1) mg/dl Total Bilirubin 0.3 (0.2-1) mg/dl AST 12 L (15-37) U/L ALT 25 (12-78) Alkaline Phosphatase 102 (45-117) U/L Total Protein 7.1 (6.4-8.2) gm/dl Albumin 3.6 (3.4-5.0) gm/dl Globulin 3.5 (2.5-4.0) gm/dl Albumin/Globulin Ratio 1.0 (0.9-2) SARS-CoV-2, RNA, NAAT (NEGATIVE) 03/19/21 Range/Units 03:50 WBC (4.8-10.8) K/uL RBC (4.7-6.1) M/uL Hgb (14.0-18.0) g/dL Hct (42-52) % MCV (80-100) fL MCH (25-34) pg MCHC (32-36) g/dL RDW Std Deviation (36.4-46.3) fL RDW Coeff of Crystal (11.5-14.5) % Plt Count (130-400) K/uL MPV (7.4-10.4) fL Immature Gran % (Auto) % Neut % (Auto) % Lymph % (Auto) % [place] % (Auto) % Eos % (Auto) % Baso % (Auto) % Neut # (Auto) (1.4-6.5) K/uL Lymph # (Auto) (1.2-3.4) K/uL [place] # (Auto) (0.11-0.59) K/uL Eos # (Auto) (0-0.5) K/uL Baso # (Auto) (0-0.2) K/uL Immature Gran # (Auto) (0.00-0.02) K/uL PT (9.0-12.0) Seconds INR (0.9-1.1) APTT (21.0-31.0) Seconds PTT Ratio Sodium (136-145) mmol/L Potassium (3.5-5.1) mmol/L Chloride (98-107) mmol/L Carbon Dioxide (21-32) mmol/L Anion Gap (3-11) BUN (7-18) mg/dl Creatinine (0.6-1.4) mg/dl Est Cr Clr Drug Dosing ml/min Est GFR ( Amer) ml/min Est GFR (Non-Af Amer) ml/min BUN/Creatinine Ratio (10-20) Glucose (70-99) mg/dl Calcium (8.5-10.1) mg/dl Total Bilirubin (0.2-1) mg/dl AST (15-37) U/L ALT (12-78) Alkaline Phosphatase (45-117) U/L Total Protein (6.4-8.2) gm/dl Albumin (3.4-5.0) gm/dl Globulin (2.5-4.0) gm/dl Albumin/Globulin Ratio (0.9-2) SARS-CoV-2, RNA, NAAT NEGATIVE (NEGATIVE) Discharge Plan Visit Data Chief Complaint: Rectal Bleed Stated Complaint: BLOODY STOOL - ON BLOOD THINNERS ED Provider: Kayce Chung Discharge Problem: Acute GI bleeding Forms Stand Alone Forms: [facility] Prescriptions Prescriptions: No Action alfuzosin 10 mg tablet extended release 24 hr 10 mg PO DAILY Qty: 90 RF: 3 dutasteride 0.5 mg capsule 0.5 mg PO DAILY Qty: 90 RF: 3 ergocalciferol (vitamin D2) 1,250 mcg (50,000 unit) capsule 1,250 mcg PO .COMPLEX Qty: 21 RF: 0 Spiriva with HandiHaler 18 mcg capsule, w/inhalation device 18 mcg INHALATION DAILY RF: 0 Xarelto 20 mg Tablet 20 mg PO HS RF: 0 atorvastatin 40 mg Tablet 40 mg PO HS RF: 0 levothyroxine 50 mcg Tablet 50 mcg PO QAM RF: 0 albuterol sulfate [Ventolin HFA] 90 mcg/actuation Hfa Aerosol Inhaler 2 puff INHALATION Q6H PRN (Reason: cough/congestion) RF: 0 coenzyme Q10 [Co Q-10] 10 mg Capsule 10 mg PO DAILY RF: 0 Probiotic 3 billion cell Capsule 3,000 mmu cells PO DAILY RF: 0 metoprolol succinate [Toprol XL] 50 mg tablet extended release 24 hr 50 mg PO BID Qty: 60 RF: 0 flecainide 50 mg tablet 50 mg PO BID RF: 0 Magnesium Powder 0 tsp PO DAILY RF: 0 Referrals Referrals: Dany Rodriguez MD [Primary Care Provider] -
[2021-03-19 01:54] LABS: INR 1.3 (0.9-1.1); Partial Thromboplastin Ratio 1.3; Partial Thromboplastin Time 35.2 Seconds (21.0-31.0); Prothrombin Time 12.7 Seconds (9.0-12.0)
[2021-03-19 02:08] LABS: Albumin Level 3.6 gm/dl (3.4-5.0); BUN Creatinine Ratio 19.7 (10-20); Calcium 9.2 mg/dl (8.5-10.1); Creatinine Clr Calc Pharmacy 42.2 ml/min; Est GFR (African American) 48.9 ml/min; Est GFR (Non-African American) 42.2 ml/min; Potassium 3.7 mmol/L (3.5-5.1)
[2021-03-19 02:11] LABS: Bilirubin,Total 0.3 mg/dl (0.2-1); Globulin 3.5 gm/dl (2.5-4.0); Total Protein 7.1 gm/dl (6.4-8.2)
--- NOTE | 2021-03-19 03:49 | History & Physical Report ---
Date of Service March 19, 2021 Assessment & Plan (1) LGI bleed: Plan: 75yo male presenting after episode of large, bloody bowel movement which occurred after taking a stool softener. Patient is on Xarelto anticoagulation for history of nonvalvular AFib. Patient is hemodynamically stable. Hgb=12.7, Hct=38.2. Has some lower abdominal cramping, otherwise doing well. Has not had bright red blood passage since being in the ER although did have a maroon stool. Colonoscopy from 2019 with large and small mouthed diverticula as well as angioectasia and polyps. -Admit to medical -Maintain 2 large PIVs -Trend CBC q 8 hours - transfused for ongoing bleeding, symptomatic anemia or Hgb <7 -Hold Xarelto for now -If patient remains stable would consider outpatient GI assessment for colonoscopy (2) Atrial fibrillation: Plan: Rate controlled. On Xarelto for anticoagulation. Of note, patient was just admitted to [facility] with AF with RVR. He was treated wtih Diltiazem and Cardioversion. Patient's Digoxin and Hydralazine were discontinued, and his Metoprolol was increased to 50mg po BID. He was also recently started on Flecainide. -Continue Metoprolol -Continue Flecainide -Holding Xarelto as above in setting of acute LGIB (3) Hypertension: Plan: BLood pressure mildly elevated -Continue Metoprolol -Conitnue to monitor (4) Hypothyroidism: Plan: Chronic. Stable -Continue Synthroid 50mcg po daily (5) Hyperlipidemia: Plan: Chronic. Stable on medications. -Continue Atorvasatatin 40mg po daily (6) COPD (chronic obstructive pulmonary disease): Plan: Chronic. No cough, SOB or wheeze. 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 Stable -Continue Dutasteride and Alfuzosin (8) Chronic kidney disease, stage II (mild): Plan: BUN and Cr stable and at baseline -Monitor I/Os -Avoid nephrotoxic agents -Renal dosing where needed History of Present Illness Chief Complaint: LGIB Primary Care Provider: Dany Rodriguez MD Ronni Ocampo is a 75yo male with history of AF on Xarelto anticoagulation, HTN, HLP, GERD, COPD, CKD presenting with LGIB. Patient states that he was constipated and took a Dulcolax 2 days ago. He had a large, explosive bowel movement shortly after which was painful. He then had a second bowel movement that was loose and watery. His third bowel movement was a large volume of bright red blood that filled the toilet bowel. He did not notice any clots but there was some mucus with the blood. Patient on a blood thinner and became concerned so called EMS. Upon arrival to the ER he was afebrile, HD stable. He had a liquid bowel movement in the ER that was maroon in color. Of note, patient did eat beets for dinner. He is reporting of some lower abdominal discomfort and feeling of gas. No additional complaints at this time. He denies chest pain, SOB, dizziness, lightheadedness. Denies nausea, vomiting or hematemesis. Last colonoscopy on record from 10/13/[address] Olmos which revealed diverticulosis in the sigmoid colon. Cecal polyp and rectal polyp s/p tx and two nonbleeding colonic angioectasias. Allergies Allergy/AdvReac Type Severity Reaction Status Date / Time No Known Allergies Allergy Verified 03/19/21 02:01 Home Medications Medication Instructions Recorded Confirmed Type atorvastatin 40 mg tablet 40 mg PO HS 09/22/18 03/19/21 History levothyroxine 50 mcg tablet 50 mcg PO QAM 09/22/18 03/19/21 History albuterol sulfate 90 mcg/actuation 2 puff INHALATION Q6H PRN 12/23/18 03/19/21 History aerosol inhaler (Ventolin HFA) rivaroxaban 20 mg tablet (Xarelto) 20 mg PO HS 10/17/19 03/19/21 History tiotropium bromide 18 mcg capsule 18 mcg INHALATION DAILY 10/17/19 03/19/21 History with inhalation device (Spiriva with HandiHaler) ergocalciferol (vitamin D2) 1,250 1,250 mcg PO .COMPLEX #21 cap 10/21/20 03/19/21 Rx mcg (50,000 unit) capsule alfuzosin 10 mg tablet,extended 10 mg PO DAILY #90 tab 11/12/20 03/19/21 Rx release 24 hr dutasteride 0.5 mg capsule 0.5 mg PO DAILY #90 cap 11/12/20 03/19/21 Rx coenzyme Q10 10 mg capsule (Co 10 mg PO DAILY 03/04/21 03/19/21 History Q-10) lactobacillus combination no.4 3 3,000 mmu cells PO DAILY 03/04/21 03/19/21 History billion cell capsule (Probiotic) metoprolol succinate 50 mg 50 mg PO BID #60 tab 03/07/21 03/19/21 Rx tablet,extended release 24 hr (Toprol XL) Magnesium Powder 0 tsp PO DAILY 03/19/21 03/19/21 History flecainide 50 mg tablet 50 mg PO BID 03/19/21 03/19/21 History Past Med/Surg History Medical History (Updated 03/19/21 @ 04:00 by Li Kitchen DO) Anemia Atrial fibrillation BPH (benign prostatic hyperplasia) 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, stage II (mild) Chronic obstructive pulmonary disease "MILD" GERD (gastroesophageal reflux disease) Hyperlipidemia Hypertension Hypothyroidism Peripheral neuropathy Tachycardia Temporomandibular joint disorder Surgical History Fusion of spine LUMBAR H/O hand surgery LEFT H/O knee surgery "MULTIPLE LEFT KNEE SURGERY" History of anesthesia reaction WAS TOLD "I WAS HARD TO SEDATE DURING COLONOSCOPY 15 YEARS AGO" History of cardiac cath NO STENTS History of colonoscopy History of herniorrhaphy History of nasal septoplasty History of tonsillectomy History of tooth extraction Family History Other No significant family history Social History Smoking Status: Former smoker Tobacco Type: Cigarettes packs per day: 2; Years Smoked: 52; Second Hand Exposure: No; Hx Alcohol Use: No Hx Substance Use: No Preferred Language: Dutch Communication Ability: Effective Edge Drummer Required: No Beliefs That Will Affect Care: None marital status: Current Living Situation: Spouse How many Children do You have: 4 Feels Safe at Home: Yes Assistive Devices: None Review of Systems Review of Systems: All systems reviewed & are unremarkable except as noted in HPI & below Physical Exam Physical Exam: General: patient resting comfortably, NAD, non-toxic in appearance, AA&O x 4 Skin: warm, dry, intact, no rashes or lesions HEENT: NC/AT, PERRL, EOMI, anicteric sclera, conjunctiva without injection, external ear normal to inspection and nontender, nares patent, moist mucus membranes, dentition intact, no oropharyngeal lesions, neck supple, trachea midline, no LAD, no thyromegaly, no JVD Heart: +S1/S2, irregularly irregular, no m/r/g Lungs: equal air entry bilaterally, no rales/rhonchi/wheezes Abd: +BS, soft, mildly tender in lower abdomen with deep palpation, no rebound/guarding/peritoneal signs, no masses/organomegaly/ascites Ext: warm, 2+ pulses in UE/LE bilaterally, no clubbing/cyanosis or edema Neuro: nonfocal, patient AA&O x 4, speech intact, no facial droop, moving all extremities on command with equal strength 5/5 Results & Data Results & Data ([facility]) Vital Signs (Past 12 Hours) Vital Signs Temp Pulse Pulse Resp BP BP Pulse Ox 03/19/21 01:25 60 15 100 03/19/21 01:12 68 15 172/93 H 97 03/19/21 00:58 36.3 C L 68 16 156/76 H 97 Laboratory Results Laboratory Results WBC 7.06 K/uL (4.8-10.8) 03/19/21 01:31 RBC 4.15 M/uL (4.7-6.1) L 03/19/21 01:31 Hgb 12.7 g/dL (14.0-18.0) L 03/19/21 01:31 Hct 38.2 % (42-52) L 03/19/21 01:31 MCV 92.0 fL (80-100) 03/19/21 01:31 MCH 30.6 pg (25-34) 03/19/21 01:31 MCHC 33.2 g/dL (32-36) 03/19/21 01:31 RDW Std Deviation 46.8 fL (36.4-46.3) H 03/19/21 01:31 RDW Coeff of Crystal 13.8 % (11.5-14.5) 03/19/21 01:31 Plt Count 284 K/uL (130-400) 03/19/21 01:31 MPV 10.0 fL (7.4-10.4) 03/19/21 01:31 Immature Gran % (Auto) 0.1 % 03/19/21 01:31 Neut % (Auto) 53.5 % 03/19/21 01:31 Lymph % (Auto) 32.3 % 03/19/21 01:31 [place] % (Auto) 8.9 % 03/19/21 01:31 Eos % (Auto) 4.1 % 03/19/21 01:31 Baso % (Auto) 1.1 % 03/19/21 01:31 Neut # (Auto) 3.77 K/uL (1.4-6.5) 03/19/21 01:31 Lymph # (Auto) 2.28 K/uL (1.2-3.4) 03/19/21 01:31 [place] # (Auto) 0.63 K/uL (0.11-0.59) H 03/19/21 01:31 Eos # (Auto) 0.29 K/uL (0-0.5) 03/19/21 01:31 Baso # (Auto) 0.08 K/uL (0-0.2) 03/19/21 01:31 Immature Gran # (Auto) 0.01 K/uL (0.00-0.02) 03/19/21 01:31 PT 12.7 Seconds (9.0-12.0) H 03/19/21 01:31 INR 1.3 (0.9-1.1) H 03/19/21 01:31 APTT 35.2 Seconds (21.0-31.0) H 03/19/21 01:31 PTT Ratio 1.3 03/19/21 01:31 Sodium 142 mmol/L (136-145) 03/19/21 01:31 Potassium 3.7 mmol/L (3.5-5.1) 03/19/21 01:31 Chloride 112 mmol/L (98-107) H 03/19/21 01:31 Carbon Dioxide 28 mmol/L (21-32) 03/19/21 01:31 Anion Gap 2.0 (3-11) L 03/19/21 01:31 BUN 31 mg/dl (7-18) H 03/19/21 01:31 Creatinine 1.56 mg/dl (0.6-1.4) H 03/19/21 01:31 Est Cr Clr Drug Dosing 42.2 ml/min 03/19/21 01:31 Est GFR ( Amer) 48.9 ml/min 03/19/21 01:31 Est GFR (Non-Af Amer) 42.2 ml/min 03/19/21 01:31 BUN/Creatinine Ratio 19.7 (10-20) 03/19/21 01:31 Glucose 111 mg/dl (70-99) H 03/19/21 01:31 Calcium 9.2 mg/dl (8.5-10.1) 03/19/21 01:31 Total Bilirubin 0.3 mg/dl (0.2-1) 03/19/21 01:31 AST 12 U/L (15-37) L 03/19/21 01:31 ALT 25 (12-78) 03/19/21 01:31 Alkaline Phosphatase 102 U/L (45-117) 03/19/21 01:31 Total Protein 7.1 gm/dl (6.4-8.2) 03/19/21 01:31 Albumin 3.6 gm/dl (3.4-5.0) 03/19/21 01:31 Globulin 3.5 gm/dl (2.5-4.0) 03/19/21 01:31 Albumin/Globulin Ratio 1.0 (0.9-2) 03/19/21 01:31 Code Status & VTE Plan VTE Prophylaxis Plan VTE Prophylaxis will be ordered: Yes PG Care Time/CCT Total # of Minutes Spent Total Time Spent with Patient: Total time spent is greater than 50% in coordination of care (as documented) at patient's floor/unit and/or counseling patient: Coding Level of Care Code INT OBSERVATION CARE 70M LVL 3 Diagnoses Hypothyroidism E03.9 Hyperlipidemia E78.5 COPD (chronic obstructive pulmonary disease) J44.9 BPH with obstruction/lower urinary tract symptoms N40.1; N13.8 Chronic kidney disease, stage II (mild) N18.2 Hypertension I10 LGI bleed K92.2 Atrial fibrillation I48.91
[2021-03-19] MEDS ORDERED: DOCUSATE SODIUM 100 MG CAP PO PRN (05:02)
[2021-03-19] MEDS ORDERED: ACETAMINOPHEN 325 MG TAB PO PRN (05:02)
[2021-03-19] MEDS ORDERED: ALBUTEROL HFA 8 GM INHALER INH PRN (05:02)
[2021-03-19] MEDS ORDERED: ONDANSETRON INJ 2 MG/ML 2 ML VIAL IV PRN (05:02)
[2021-03-19] MEDS: LEVOTHYROXINE SODIUM 50 MCG TABLET PO SCH (05:58)
[2021-03-19 07:28] LABS: Hematocrit (blood only) 35.7 % (42-52); Hemoglobin 11.9 g/dL (14.0-18.0)
[2021-03-19] MEDS: METOPROLOL SUCC 50MG EXT REL TAB PO SCH ×2 (08:15→20:00)
[2021-03-19] MEDS: FLECAINIDE ACETATE 100 MG TABLET PO SCH ×2 (08:16→20:00)
[2021-03-19] MEDS ORDERED: ALFUZOSIN HCL 10 MG TAB PO SCH ×2 (09:00→21:00)
[2021-03-19] MEDS ORDERED: NON-FORMULARY MEDICATION (Coenzyme Q10 [Co Q-10] 10 mg Capsule) PO SCH (09:00)
[2021-03-19] MEDS ORDERED: UMECLIDINIUM BROMIDE 62.5MCG/BLISTER 7 PUFFS/INHALER INH SCH (09:00)
[2021-03-19 13:20] LABS: Hemoglobin 12.1 g/dL (14.0-18.0)
[2021-03-19] MEDS ORDERED: Nursing to Pharmacy Communication SCH (15:00)
--- NOTE | 2021-03-19 16:05 | Hospitalist Progress Note ---
Date of Service March 19, 2021 Assessment & Plan (1) Acute GI bleeding: (2) Atrial fibrillation: (3) Hypertension: (4) Hypothyroidism: (5) Hyperlipidemia: (6) COPD (chronic obstructive pulmonary disease): (7) BPH with obstruction/lower urinary tract symptoms: Plan: LGI bleed: Plan: 75yo male presenting after episode of large, bloody bowel movement which occurred after taking a stool softener. Patient is on Xarelto anticoagulation for history of nonvalvular AFib. Patient is hemodynamically stable. Hgb=12.7, Hct=38.2. Has some lower abdominal cramping, otherwise doing well. Has not had bright red blood passage since being in the ER although did have a maroon stool. Colonoscopy from 2019 with large and small mouthed diverticula as well as angioectasia and polyps. -Admit to medical -Maintain 2 large PIVs -Trend CBC q 8 hours - transfused for ongoing bleeding, symptomatic anemia or Hgb <7 -Hold Xarelto for now -If patient remains stable would consider outpatient GI assessment for colonoscopy Repeat CBC and CMP in the a.m. Advance diet to heart healthy After discussion with [facility] GI will plan on restarting patient's Xarelto with patient follow-up outpatient Observed patient after taking Xarelto for any renewed symptoms Most recent lab work reassuring (2) Atrial fibrillation: Plan: Rate controlled. On Xarelto for anticoagulation. Of note, patient was just admitted to [facility] with AF with RVR. He was treated wtih Diltiazem and Cardioversion. Patient's Digoxin and Hydralazine were discontinued, and his Metoprolol was increased to 50mg po BID. He was also recently started on Flecainide. -Continue Metoprolol -Continue Flecainide -Holding Xarelto as above in setting of acute LGIB (3) Hypertension: Plan: BLood pressure mildly elevated, previous cardiology consultation and March 06 recommended maintaining a slightly elevated blood pressure due to hypotension episodes due to autonomic dysfunction Continue to monitor -Continue Metoprolol -Conitnue to monitor (4) Hypothyroidism: Plan: Chronic. Stable -Continue Synthroid 50mcg po daily (5) Hyperlipidemia: Plan: Chronic. Stable on medications. -Continue Atorvasatatin 40mg po daily (6) COPD (chronic obstructive pulmonary disease): Plan: Chronic. No cough, SOB or wheeze. 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 Stable -Continue Dutasteride and Alfuzosin Admission and Anticipated Discharge Date Admission Date: March 19, 2021 Subjective patient reportedly in no repeat bleeding. No diarrhea No abdominal pain nausea vomiting, would like to consider eating currently liquid diet No fevers chills nausea vomiting diarrhea Review of Systems Constitutional: no fever and no chills Respiratory: no cough, no chest congestion, no dyspnea and no wheezing Cardiovascular: no chest pain, no palpitations and no edema Gastrointestinal: no abdominal pain, no heartburn, no nausea, no vomiting and no change in bowel habits Neurologic: no gait abnormality, no falls and no headache(s) Physical Exam Physical Exam: Constitutional: WD/WN, vitals as above Respiratory: Effort normal, CTA B/L CV: RRR, no murmur, no edema Abdomen: normal bowel sounds, soft, nontender, no hepatosplenomegaly Neurologic: Normal gait Results & Data Results & Data ([facility]) Vital Signs (Past 12 Hours) Vital Signs Temp Pulse Resp BP Pulse Ox 03/19/21 08:09 36.4 C L 60 16 186/88 H 97 03/19/21 05:58 60 153/73 H 03/19/21 05:03 36.5 C 69 18 205/76 H 95 03/19/21 04:37 69 16 190/74 H 94 Laboratory Results Laboratory Results - last 24 hr 03/19/21 03/19/21 03/19/21 01:31 01:31 01:31 WBC 7.06 RBC 4.15 L Hgb 12.7 L Hct 38.2 L MCV 92.0 MCH 30.6 MCHC 33.2 RDW Std Deviation 46.8 H RDW Coeff of Crystal 13.8 Plt Count 284 MPV 10.0 Immature Gran % (Auto) 0.1 Neut % (Auto) 53.5 Lymph % (Auto) 32.3 [place] % (Auto) 8.9 Eos % (Auto) 4.1 Baso % (Auto) 1.1 Neut # (Auto) 3.77 Lymph # (Auto) 2.28 [place] # (Auto) 0.63 H Eos # (Auto) 0.29 Baso # (Auto) 0.08 Immature Gran # (Auto) 0.01 PT 12.7 H INR 1.3 H APTT 35.2 H PTT Ratio 1.3 Sodium 142 Potassium 3.7 Chloride 112 H Carbon Dioxide 28 Anion Gap 2.0 L BUN 31 H Creatinine 1.56 H Est Cr Clr Drug Dosing 42.2 Est GFR ( Amer) 48.9 Est GFR (Non-Af Amer) 42.2 BUN/Creatinine Ratio 19.7 Glucose 111 H Calcium 9.2 Total Bilirubin 0.3 AST 12 L ALT 25 Alkaline Phosphatase 102 Total Protein 7.1 Albumin 3.6 Globulin 3.5 Albumin/Globulin Ratio 1.0 SARS-CoV-2, RNA, NAAT 03/19/21 03/19/21 03/19/21 03:50 07:17 13:07 WBC RBC Hgb 11.9 L 12.1 L Hct 35.7 L 37.0 L MCV MCH MCHC RDW Std Deviation RDW Coeff of Crystal Plt Count MPV Immature Gran % (Auto) Neut % (Auto) Lymph % (Auto) [place] % (Auto) Eos % (Auto) Baso % (Auto) Neut # (Auto) Lymph # (Auto) [place] # (Auto) Eos # (Auto) Baso # (Auto) Immature Gran # (Auto) PT INR APTT PTT Ratio Sodium Potassium Chloride Carbon Dioxide Anion Gap BUN Creatinine Est Cr Clr Drug Dosing Est GFR ( Amer) Est GFR (Non-Af Amer) BUN/Creatinine Ratio Glucose Calcium Total Bilirubin AST ALT Alkaline Phosphatase Total Protein Albumin Globulin Albumin/Globulin Ratio SARS-CoV-2, RNA, NAAT NEGATIVE Medications Administered Current Inpatient Medications Acetaminophen (Acetaminophen 325 Mg Tab) 650 mg PO Q4H PRN PRN Reason: pain/fever Stop: 04/18/21 05:01 Albuterol (Albuterol Hfa 8 Gm Inhaler) 2 puffs INH Q6H PRN PRN Reason: cough Stop: 04/18/21 05:01 Alfuzosin HCl (Alfuzosin Hcl 10 Mg Tab) 10 mg PO HS JASWANT Stop: 04/18/21 20:59 Atorvastatin Calcium (Atorvastatin 40 Mg Tab) 40 mg PO HS JASWANT Stop: 04/18/21 20:59 Docusate Sodium (Docusate Sodium 100 Mg Cap) 100 mg PO BID PRN PRN Reason: Constipation Stop: 04/18/21 05:01 Flecainide Acetate (Flecainide Acetate 100 Mg Tablet) 50 mg PO BID [facility] Stop: 04/18/21 08:59 Last Admin: 03/19/21 08:16 Dose: 50 mg Documented by: Levothyroxine Sodium (Levothyroxine Sodium 50 Mcg Tablet) 50 mcg PO DAILYBB [facility] Stop: 04/18/21 06:29 Last Admin: 03/19/21 05:58 Dose: 50 mcg Documented by: Metoprolol Succinate (Metoprolol Succ 50mg Ext Rel Tab) 50 mg PO BID [facility] Stop: 04/18/21 08:59 Last Admin: 03/19/21 08:15 Dose: 50 mg Documented by: Miscellaneous (Avodart~Order Awaiting Action) 1 ea N/A QS [facility] Stop: 04/18/21 07:59 Last Admin: 03/19/21 08:18 Dose: Not Given Documented by: Ondansetron HCl (Ondansetron Inj 2 Mg/Ml 2 Ml Vial) 4 mg IV Q6H PRN PRN Reason: Nausea Stop: 04/18/21 05:01 Umeclidinium [place] (Umeclidinium [place] 62.5mcg/Blister 7 Puffs/Inhaler) 1 puffs INH DAILY JASWANT Stop: 04/18/21 08:59 Last Admin: 03/19/21 08:18 Dose: Not Given Documented by: PG Care Time/CCT Total # of Minutes Spent Total Time Spent with Patient: Total time spent is greater than 50% in coordination of care (as documented) at patient's floor/unit and/or counseling patient: Coding Level of Care Code 47410 Subseq Hosp Care Lvl 2 Diagnoses Acute GI bleeding K92.2 Atrial fibrillation I48.91 Hypothyroidism E03.9 Hyperlipidemia E78.5 COPD (chronic obstructive pulmonary disease) J44.9 Hypertension I10 BPH with obstruction/lower urinary tract symptoms N40.1; N13.8
[2021-03-19] MEDS ORDERED: ATORVASTATIN 40 MG TAB PO SCH (21:00)
[2021-03-19 21:55] LABS: Hematocrit (blood only) 38.7 % (42-52); Hemoglobin 12.9 g/dL (14.0-18.0)
[2021-03-20] MEDS: LEVOTHYROXINE SODIUM 50 MCG TABLET PO SCH (06:00)
[2021-03-20 07:03] LABS: Basophils # (auto) 0.07 K/uL (0-0.2); Eosinophils # (auto) 0.26 K/uL (0-0.5); Eosinophils % (auto) 3.8 %; Hematocrit (blood only) 38.4 % (42-52); Hemoglobin 12.6 g/dL (14.0-18.0); Immature Granulocytes # (auto) 0.01 K/uL (0.00-0.02); Immature Granulocytes % (auto) 0.1 %; Lymphocytes # (auto) 2.34 K/uL (1.2-3.4); Lymphocytes % (auto) 34.6 %; Mean Corpuscular Hemoglobin 29.9 pg (25-34); Mean Corpuscular Hgb Conc 32.8 g/dL (32-36); Mean Corpuscular Volume 91.2 fL (80-100); Mean Platelet Volume 9.6 fL (7.4-10.4); Monocytes # (auto) 0.71 K/uL (0.11-0.59); Monocytes % (auto) 10.5 %; Neutrophils # (auto) 3.38 K/uL (1.4-6.5); Platelet Count 239 K/uL (130-400); RDW Coefficient of Variation 13.7 % (11.5-14.5); RDW Standard Deviation 45.4 fL (36.4-46.3); Red Blood Count 4.21 M/uL (4.7-6.1); White Blood Count 6.77 K/uL (4.8-10.8)
[2021-03-20 07:35] LABS: Albumin Level 3.1 gm/dl (3.4-5.0); BUN Creatinine Ratio 18.2 (10-20); Calcium 8.6 mg/dl (8.5-10.1); Creatinine Clr Calc Pharmacy 52.7 ml/min; Est GFR (Non-African American) 55.2 ml/min; Potassium 4.2 mmol/L (3.5-5.1)
[2021-03-20 07:38] LABS: Albumin Globulin Ratio 0.9 (0.9-2); Bilirubin,Total 0.4 mg/dl (0.2-1); Globulin 3.3 gm/dl (2.5-4.0); Total Protein 6.4 gm/dl (6.4-8.2)
[2021-03-20] MEDS ORDERED: NON-FORMULARY MEDICATION (Dutasteride 0.5 MG) PO SCH (09:00)
[2021-03-20] MEDS ORDERED: TIOTROPIUM BROMIDE 5 PUFF/90 MCG INH INH SCH ×3 (09:00)
--- NOTE | 2021-03-20 10:12 | Discharge Summary ---
Date of Service March 20, 2021 Admission HPI Per Admitting Provider Ronni Ocampo is a 75yo male with history of AF on Xarelto anticoagulation, HTN, HLP, GERD, COPD, CKD presenting with LGIB. Patient states that he was constipated and took a Dulcolax 2 days ago. He had a large, explosive bowel movement shortly after which was painful. He then had a second bowel movement that was loose and watery. His third bowel movement was a large volume of bright red blood that filled the toilet bowel. He did not notice any clots but there was some mucus with the blood. Patient on a blood thinner and became concerned so called EMS. Upon arrival to the ER he was afebrile, HD stable. He had a liquid bowel movement in the ER that was maroon in color. Of note, patient did eat beets for dinner. He is reporting of some lower abdominal discomfort and feeling of gas. No additional complaints at this time. He denies chest pain, SOB, dizziness, lightheadedness. Denies nausea, vomiting or hematemesis. Last colonoscopy on record from 10/13/[address] Olmos which revealed divert iculosis in the sigmoid colon. Cecal polyp and rectal polyp s/p tx and two nonbleeding colonic angioectasias. Admission Exam Per Admitting Provider General: patient resting comfortably, NAD, non-toxic in appearance, AA&O x 4 Skin: warm, dry, intact, no rashes or lesions HEENT: NC/AT, PERRL, EOMI, anicteric sclera, conjunctiva without injection, external ear normal to inspection and nontender, nares patent, moist mucus membranes, dentition intact, no oropharyngeal lesions, neck supple, trachea midline, no LAD, no thyromegaly, no JVD Heart: +S1/S2, irregularly irregular, no m/r/g Lungs: equal air entry bilaterally, no rales/rhonchi/wheezes Abd: +BS, soft, mildly tender in lower abdomen with deep palpation, no rebound/guarding/peritoneal signs, no masses/organomegaly/ascites Ext: warm, 2+ pulses in UE/LE bilaterally, no clubbing/cyanosis or edema Neuro: nonfocal, patient AA&O x 4, speech intact, no facial droop, moving all extremities on command with equal strength 5/5 Principal Diagnosis LGIB Discharge Exam Constitutional WD/WN, vitals as above Respiratory normal respiratory effort, lungs clear to auscultation Cardiovascular RRR, no murmur, no edema Gastrointestinal (Abdomen) normal bowel sounds, soft, nontender, no hepatosplenomegaly Discharge Data Allergies Allergy/AdvReac Type Severity Reaction Status Date / Time No Known Allergies Allergy Verified 03/19/21 02:01 Consultations 03/19/21 03:05 ED Decision to Admit Stat Ordered Studies Laboratory Results - last 24 hr 03/19/21 03/19/21 03/20/21 13:07 21:04 06:46 WBC RBC Hgb 12.1 L 12.9 L Hct 37.0 L 38.7 L MCV MCH MCHC RDW Std Deviation RDW Coeff of Crystal Plt Count MPV Immature Gran % (Auto) Neut % (Auto) Lymph % (Auto) Kimball % (Auto) Eos % (Auto) Baso % (Auto) Neut # (Auto) Lymph # (Auto) Kimball # (Auto) Eos # (Auto) Baso # (Auto) Immature Gran # (Auto) Sodium 142 Potassium 4.2 Chloride 112 H Carbon Dioxide 26 Anion Gap 4.0 BUN 23 H Creatinine 1.25 D Est Cr Clr Drug Dosing 52.7 Est GFR ( Amer) 64.0 Est GFR (Non-Af Amer) 55.2 BUN/Creatinine Ratio 18.2 Glucose 100 H Calcium 8.6 Total Bilirubin 0.4 AST 10 L ALT 21 Alkaline Phosphatase 71 Total Protein 6.4 Albumin 3.1 L Globulin 3.3 Albumin/Globulin Ratio 0.9 03/20/21 06:46 WBC 6.77 RBC 4.21 L Hgb 12.6 L Hct 38.4 L MCV 91.2 MCH 29.9 MCHC 32.8 RDW Std Deviation 45.4 RDW Coeff of Crystal 13.7 Plt Count 239 MPV 9.6 Immature Gran % (Auto) 0.1 Neut % (Auto) 50.0 Lymph % (Auto) 34.6 Kimball % (Auto) 10.5 Eos % (Auto) 3.8 Baso % (Auto) 1.0 Neut # (Auto) 3.38 Lymph # (Auto) 2.34 Kimball # (Auto) 0.71 H Eos # (Auto) 0.26 Baso # (Auto) 0.07 Immature Gran # (Auto) 0.01 Sodium Potassium Chloride Carbon Dioxide Anion Gap BUN Creatinine Est Cr Clr Drug Dosing Est GFR ( Amer) Est GFR (Non-Af Amer) BUN/Creatinine Ratio Glucose Calcium Total Bilirubin AST ALT Alkaline Phosphatase Total Protein Albumin Globulin Albumin/Globulin Ratio Hospital Course (1) Acute GI bleeding: (2) LGI bleed: (3) Atrial fibrillation: (4) Hypertension: (5) Hypothyroidism: (6) Hyperlipidemia: (7) COPD (chronic obstructive pulmonary disease): (8) BPH with obstruction/lower urinary tract symptoms: (9) Constipation: start Metamucil [id number] daily dosing help with prevention Dietary interventions and in proved fluid intake 75yo male presenting after episode of large, bloody bowel movement which occurred after taking a stool softener. Patient is on Xarelto anticoagulation for history of nonvalvular AFib. Patient is hemodynamically stable. Hgb=12.7, Hct=38.2. Has some lower abdominal cramping, otherwise doing well. Has not had bright red blood passage since being in the ER although did have a maroon stool. Colonoscopy from 2019 with large and small mouthed diverticula as well as angioectasia and polyps. -Admit to medical -Maintain 2 large PIVs -Trend CBC q 8 hours - transfused for ongoing bleeding, symptomatic anemia or Hgb <7 -Hold Xarelto for now -If patient remains stable would consider outpatient GI assessment for colonoscopy Repeat CBC and CMP in the a.m. Advance diet to heart healthy After discussion with [facility] GI will plan on restarting patient's Xarelto with patient follow-up outpatient Observed patient after taking Xarelto for any renewed symptoms Most recent lab work reassuring On discharge the patient would like to go home, feeling well with no reported bleeding. normal BM was reported. no new abdominal pain, no fevers or chills, no nausea vomiting diarrhea Patient instructed to restart Xarelto this evening ER precautions reviewed, return with any new significant lower GI bleed Call PCP if other concerns Discontinue Xarelto if bleeding restarts and follow-up as noted above (2) Atrial fibrillation: Plan: Rate controlled. On Xarelto for anticoagulation. Of note, patient was just admitted to [facility] with AF with RVR. He was treated wtih Diltiazem and Cardioversion. Patient's Digoxin and Hydralazine were discontinued, and his Metoprolol was increased to 50mg po BID. He was also recently started on Flecainide. -Continue Metoprolol -Continue Flecainide restart Xarelto 12 16 evening dose, discharge to home (3) Hypertension: Plan: BLood pressure mildly elevated, previous cardiology consultation and March 06 recommended maintaining a slightly elevated blood pressure due to hypotension episodes due to autonomic dysfunction Continue to monitor -Continue Metoprolol -Conitnue to monitor (4) Hypothyroidism: Plan: Chronic. Stable -Continue Synthroid 50mcg po daily (5) Hyperlipidemia: Plan: Chronic. Stable on medications. -Continue Atorvasatatin 40mg po daily (6) COPD (chronic obstructive pulmonary disease): Plan: Chronic. No cough, SOB or wheeze. 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 Stable -Continue Dutasteride and Alfuzosin Total Time Total Time Spent Total Time Spent (In Minutes): 25 Discharge Plan Discharge Items Patient Disposition: Home - Self-Care Reason For Visit: LGIB Discharge Diagnosis: LGIB Condition on Discharge: Good Activity: Resume your previous activity Lifting: Gradually increase as tolerated Bathing: No limitations Sexual Activity: When tolerated Exercise/Sports: Gradually increase as tolerated Driving/Machine Use: No limitations Non-emergency contact: Primary Care Provider and Entry Level Account Representative Call non-emergency contact if: you have any medication questions and you have a fever Follow-up/Referrals: Dany Rodriguez MD [Primary Care Provider] - Art Barry [Physician] - (1-2 weeks, resolved LGIB) Diet: Heart Healthy Addtl Attending Provider Instructions: no further instructions Pending Studies at Discharge: No Stand-Alone Forms: My [employer], Smoking Cessation Medications and DC Order Prescriptions: New Metamucil 3.4 gram/5.4 gram powder 1 tbsp PO DAILY Qty: 660 RF: 0 Continued alfuzosin 10 mg tablet extended release 24 hr 10 mg PO DAILY Qty: 90 RF: 3 dutasteride 0.5 mg capsule 0.5 mg PO DAILY Qty: 90 RF: 3 ergocalciferol (vitamin D2) 1,250 mcg (50,000 unit) capsule 1,250 mcg PO .COMPLEX Qty: 21 RF: 0 Spiriva with HandiHaler 18 mcg capsule, w/inhalation device 18 mcg INHALATION DAILY RF: 0 Xarelto 20 mg Tablet 20 mg PO HS RF: 0 atorvastatin 40 mg Tablet 40 mg PO HS RF: 0 levothyroxine 50 mcg Tablet 50 mcg PO QAM RF: 0 albuterol sulfate [Ventolin HFA] 90 mcg/actuation Hfa Aerosol Inhaler 2 puff INHALATION Q6H PRN (Reason: cough/congestion) RF: 0 coenzyme Q10 [Co Q-10] 10 mg Capsule 10 mg PO DAILY RF: 0 Probiotic 3 billion cell Capsule 3,000 mmu cells PO DAILY RF: 0 metoprolol succinate [Toprol XL] 50 mg tablet extended release 24 hr 50 mg PO BID Qty: 60 RF: 0 flecainide 50 mg tablet 50 mg PO BID RF: 0 Magnesium Powder 0 tsp PO DAILY RF: 0 Discharge Orders: Discharge Order (Routine); Ordered 03/20/21 Ordered By: Art Samuel Admission Data Admit Date/Time: 03/19/21 03:42 Attending Provider: Art Samuel Admit Provider: Li Kitchen Primary Care Provider: Dany Rodriguez Other Providers: Li Kitchen Coding Level of Care Code D/C DAY MANAGEMENT <30 MINS Diagnoses Acute GI bleeding K92.2 LGI bleed K92.2 Atrial fibrillation I48.91 Hypothyroidism E03.9 Hyperlipidemia E78.5 COPD (chronic obstructive pulmonary disease) J44.9 BPH with obstruction/lower urinary tract symptoms N40.1; N13.8 Hypertension I10 Constipation K59.00
[2021-03-20] MEDS: FLECAINIDE ACETATE 100 MG TABLET PO SCH (10:30)
[2021-03-20] MEDS: METOPROLOL SUCC 50MG EXT REL TAB PO SCH (10:31)
== END 2021-03-20 12:56 | disposition home or self-care (01) ==
LOC: ED 00:53 → 3E 00:53 → SUATTDRO 03:42 → 3E 05:07

== ENCOUNTER 2025-02-15 19:37 | Inpatient (IN) ==
[2025-02-15 20:16] LABS: Hematocrit (blood only) 41.3 % (42.0-52.0); Hemoglobin 13.7 g/dL (14.0-18.0); Immature Granulocytes # (auto) 0.02 K/uL (0.01-0.20); Immature Granulocytes % (auto) 0.3 %; Mean Corpuscular Hemoglobin 29.9 pg (25.0-34.0); Mean Corpuscular Volume 90.2 fL (80.0-100.0); Platelet Count 251 K/uL (130-400); RDW Standard Deviation 45.8 fL (36.4-46.3); Red Blood Count 4.58 M/uL (4.70-6.10); White Blood Count 6.65 K/ul (4.8-10.8)
[2025-02-15] MEDS: SODIUM CHLORIDE 0.9% 500 ML IV ONE ×2 (20:20→21:23)
[2025-02-15 20:48] LABS: Alanine Aminotransferase 18 U/L (7-52); Albumin Globulin Ratio 1.2 (0.9-2); Albumin Level 3.8 gm/dl (3.4-5.0); Alkaline Phosphatase 98 U/L (34-104); Anion Gap 5 (3-11); Bilirubin,Total 0.4 mg/dl (0.2-1.0); Blood Urea Nitrogen 35 mg/dl (6-23); Calcium 8.9 mg/dl (8.6-10.3); Carbon Dioxide 24 mmol/L (21-32); Chloride 111 mmol/L (98-107); Creatinine Clr Calc Pharmacy 34.6 ml/min; Globulin 3.2 gm/dl (2.5-4.0); Glucose 136 mg/dl (70-99(Fasting)); Magnesium 2.3 mg/dl (1.7-2.4); Sodium 140 mmol/L (136-145); Total Protein 7.0 gm/dl (6.0-8.3)
[2025-02-15 20:50] LABS: Thyroid Stimulating Hormone 2.519 uIu/ml (0.300-4.500)
--- NOTE | 2025-02-15 21:02 | Emergency Department Note ---
Impression & Plan Atrial fibrillation with RVR, Acute on chronic renal insufficiency, On apixaban therapy ED Provider Note NAME: TUTU AMOR AGE: 79 SEX: M : 1945 ARRIVES VIA: Walk-In INFORMANT: Patient ED PROVIDER(S): Maciej Carey MD CHIEF COMPLAINT: Afib, fluttering PLAN: Disposition: Admit MEDICAL DECISION MAKING: The patient is a pleasant 79-year-old gentleman with a past medical history of atrial fibrillation on metoprolol and Eliquis, history of COPD, BPH, CKD, hypertension, hyperlipidemia who presents to Emergency Department via walk-in for evaluation of heart racing/fluttering they noticed this evening around 6 PM when he was watching TV. Patient denies missing any of his medications. He denies fevers, chills, cough, congestion, chest pain or shortness of breath. On my evaluation the patient is no acute distress, afebrile with heart in the 140s in atrial fibrillation and vital signs otherwise stable. He appears clinically dry. EKG demonstrates atrial fibrillation versus a flutter with RVR with ST abnormalities without overt ST elevation. CXR negative for acute cardiopulmonary process per my personal preliminary review/interpretation. WBC and platelets within normal limits. H/H similar to prior. Chemistry without metabolic acidosis. Creatinine 1.95, increased from baseline range of 1.5-1.7 in the setting of history of CKD. Electrolytes and LFTs unremarkable. High-sensitivity troponin 6.8, within normal limits. TSH within normal limits. Patient was treated with IV fluid hydration and did have some improvement in heart rates to 120s-130s. He was subsequent given additional hydration and 5 mg of IV Lopressor but still in RVR in the 120s. Second dose administered without significant improvement. Third dose of 5 mg of IV Lopressor administered but still with persistent RVR. Patient agrees with plan for referral to the hospitalist service for further management. Case was discussed with Dr. Archibald, [facility] hospitalist, who will evaluate the patient for admission. Of note, the patient did subsequently spontaneously convert to normal sinus rhythm with rate in the 60s-70s. Further management per admitting team. Triage Nursing notes reviewed and agree them. Prior/external medical records reviewed Vital Signs: reviewed Differential diagnosis: Premature contractions, electrolyte abnormality, cardiac dysrhythmia, thyroid dysfunction, pulmonary embolism, infection, gastrointestinal, as well as other pathologies. ER treatment provided: See below. Diagnostics interpreted by me: ECG: Atrial fibrillation vs flutter, RVR, 144 bpm, ST abnormalities, no overt ST elevation or depression, QTc 483, QRS 88. Cardiac Monitoring: An order for continuous cardiac monitoring was placed and demonstrated Atrial fibrillation, RVR, 144 bpm. Laboratory studies: See below Imaging studies: See below Consultation(s): Case was discussed with Dr. Archibald, [facility] hospitalist, who will evaluate the patient for admission. HPI: Per MDM. ROS: See above HPI for pertinent positives & negatives. A total of 10 systems reviewed and were otherwise negative. VITALS:See Below PHYSICAL EXAMINATION: GENERAL: Awake, alert, in no distress HENT: Normocephalic, atraumatic. Oropharynx with dry mucous membranes and otherwise unremarkable. EYES: Normal conjunctiva. Sclera non-icteric. NECK: Supple. No nuchal rigidity. FROM. No JVD. RESPIRATORY: Clear to auscultation. CARDIAC: Tachycardic rate, irregular rhythm. Extremities warm and well perfused. Pulses equal. ABDOMEN: Soft, non-distended. No tenderness to palpation. No rebound or guarding. No masses. RECTAL: Deferred. MUSCULOSKELETAL: Chest examination reveals no tenderness. The back is symmetrical on inspection without obvious abnormality. There is no CVA tenderness to palpation. No joint edema. LOWER EXTREMITIES: Calves are equal size bilaterally and non-tender. No edema. No discoloration. NEURO: Normal sensorium. No sensory or motor deficits noted. SKIN: No rash or jaundice noted. ED COURSE: Critical Care: I have personally spent greater than 35 minutes of critical care time in the direct management of this patient. This includes bedside care, interpretation of diagnostic studies, and testing, discussion with consultants, patient, and family members, and other required patient management activities. This 35 minutes is in excess of all separately billable procedures. Maciej Carey MD Past Med/Surg History Problem List (Updated 02/16/25 @ 16:49 by Maciej Carey MD) On apixaban therapy (Acute) Acute on chronic renal insufficiency (Acute) Acute kidney injury superimposed on CKD Back problem Emphysema lung Mass of right lower extremity Colon polyp Cardiac pacemaker Nocturnal hypoxemia COVID-19 (Acute) Vitamin D deficiency Constipation Acute GI bleeding (Acute) LGI bleed Atrial fibrillation Atrial flutter with rapid ventricular response Hypothyroidism Hyperlipidemia Chest pain (Chronic) Dyspnea Tobacco abuse COPD (chronic obstructive pulmonary disease) 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, stage II (mild) (Chronic) Hypertension (Chronic) Encounter for pre-operative examination Hx of cardiac pacemaker (Chronic) Atrial fibrillation with RVR (Acute) Medical History BPH (benign prostatic hyperplasia) GERD (gastroesophageal reflux disease) Anemia Temporomandibular joint disorder Peripheral neuropathy Tachycardia Chronic obstructive pulmonary disease "MILD" Surgical History History of anesthesia reaction WAS TOLD "I WAS HARD TO SEDATE DURING COLONOSCOPY 15 YEARS AGO" H/O hand surgery LEFT H/O knee surgery "MULTIPLE LEFT KNEE SURGERY" Fusion of spine LUMBAR History of colonoscopy History of herniorrhaphy x2 History of tooth extraction History of tonsillectomy History of nasal septoplasty History of cardiac cath NO STENTS Family History Father Hypertension Stroke Mother Stroke Other No significant family history Social History Smoking Status: Former smoker Tobacco Type: Cigarettes Age Started Using Tobacco: 14; Age Quit Using Tobacco: 73; packs per day: 2; Second Hand Exposure: No; Do You Dip or Chew Tobacco: No; Hx Alcohol Use: Yes Hx Substance Use: No Preferred Language: [place] Communication Ability: Effective Visual Impairment: No Limitations Hearing Ability: Normal Aix Architect Required: No Beliefs That Will Affect Care: None marital status: Current Living Situation: Spouse current occupational status: retired How many Children do You have: 4 Feels Safe at Home: Yes Safety Concerns: Feels Safe At This Time Diet: regular caffeine: Yes (1 coffee daily) during the past year weight has: remained stable Dental Care, Regularly: Yes Physical Activity Frequency: Does not Exercise Seatbelt Use: always Do you think of yourself as: straight/heterosexual Gender Identity: Male Assistive Devices: Cane and Wheelchair Allergies Allergies Allergy/AdvReac Type Severity Reaction Status Date / Time No Known Allergies Allergy Verified 01/29/25 13:26 Home Meds Home Medications Medication Instructions Recorded Confirmed atorvastatin 40 mg tablet 40 mg PO HS 09/22/18 02/15/25 levothyroxine 50 mcg tablet 50 mcg PO QAM 09/22/18 02/15/25 apixaban 5 mg tablet (Eliquis) 5 mg PO BID 06/06/24 02/15/25 metoprolol succinate 50 mg 75 mg PO QPM 06/06/24 02/15/25 tablet,extended release 24 hr (Toprol XL) midodrine 2.5 mg tablet 5 mg PO QAM 11/15/24 02/15/25 famotidine 20 mg tablet 40 mg PO HS 01/08/25 02/16/25 gabapentin 300 mg capsule 300 mg PO TID 01/08/25 02/15/25 cholecalciferol (vitamin D3) 50 50 mcg PO HS 02/15/25 02/15/25 mcg (2,000 unit) tablet (Vitamin D3) doxycycline hyclate 20 mg tablet 20 mg PO AMHS 02/15/25 02/15/25 dutasteride 0.5 mg capsule 0.5 mg PO HS 02/15/25 02/15/25 isradipine 2.5 mg capsule 2.5 mg PO QPM 02/15/25 02/15/25 midodrine 2.5 mg tablet 2.5 mg PO .Q AFTERNOON PRN 02/15/25 02/15/25 Hypotension tiotropium bromide 18 mcg capsule 18 mcg inhalation QA 02/15/25 02/15/25 with inhalation device (Spiriva with HandiHaler) dronedarone 400 mg tablet (Multaq) 400 mg PO [facility] 02/16/25 02/16/25 fluticasone 250 mcg-salmeterol 50 1 inh inhalation BID 02/16/25 02/16/25 mcg/dose blistr powdr for inhalation (Wixela Inhub) fluticasone propionate 50 1 spray intranasal QAM 02/16/25 02/16/25 mcg/actuation nasal spray,suspension Previous Rx's Medication Instructions Recorded Flutter Valve #1 ea 01/04/25 compressor, for nebulizer #1 ea 01/23/25 nebulizer accessories #1 ea 01/23/25 Results & Data (ED) Vital Signs Vital Signs - 24 hr 02/15/25 19:46 02/15/25 20:09 02/15/25 20:15 Temperature 36.9 C Temperature Source Temporal Artery Scan Pulse Rate 138 H 133 H 126 H Pulse Rate from SpO2 Sensor 116 H Respiratory Rate 18 19 Respiratory Effort / Characteristics Non-Labored Spontaneous Respiratory Depth Normal Respiratory Pattern Regular Blood Pressure 115/70 113/88 Blood Pressure Mean 85 91 Pulse Oximetry 95 95 Oxygen Delivery Method Room Air Sepsis Recent Fever Within 48 Hours No Sepsis New/Unexplained Change in Mental Status N/A Sepsis Action Taken by Nursing No Action Required 02/15/25 20:15 02/15/25 20:15 02/15/25 20:15 Temperature Temperature Source Pulse Rate Pulse Rate from SpO2 Sensor Respiratory Rate Respiratory Effort / Characteristics Respiratory Depth Respiratory Pattern Blood Pressure 113/88 113/88 113/88 Blood Pressure Mean 91 91 91 Pulse Oximetry Oxygen Delivery Method Sepsis Recent Fever Within 48 Hours Sepsis New/Unexplained Change in Mental Status Sepsis Action Taken by Nursing 02/15/25 20:15 02/15/25 20:21 02/15/25 20:30 Temperature Temperature Source Pulse Rate 126 H 125 H 134 H Pulse Rate from SpO2 Sensor 129 H 135 H 129 H Respiratory Rate 19 20 17 Respiratory Effort / Characteristics Respiratory Depth Respiratory Pattern Blood Pressure Blood Pressure Mean Pulse Oximetry 91 94 92 Oxygen Delivery Method Sepsis Recent Fever Within 48 Hours Sepsis New/Unexplained Change in Mental Status Sepsis Action Taken by Nursing 02/15/25 20:31 02/15/25 20:31 02/15/25 20:31 Temperature Temperature Source Pulse Rate Pulse Rate from SpO2 Sensor Respiratory Rate Respiratory Effort / Characteristics Respiratory Depth Respiratory Pattern Blood Pressure 127/85 127/85 127/85 Blood Pressure Mean 101 101 101 Pulse Oximetry Oxygen Delivery Method Sepsis Recent Fever Within 48 Hours Sepsis New/Unexplained Change in Mental Status Sepsis Action Taken by Nursing 02/15/25 20:31 02/15/25 20:31 02/15/25 20:42 Temperature Temperature Source Pulse Rate 147 H Pulse Rate from SpO2 Sensor 142 H Respiratory Rate 25 H Respiratory Effort / Characteristics Respiratory Depth Respiratory Pattern Blood Pressure 127/85 127/85 Blood Pressure Mean 101 101 Pulse Oximetry 96 Oxygen Delivery Method Sepsis Recent Fever Within 48 Hours Sepsis New/Unexplained Change in Mental Status Sepsis Action Taken by Nursing 02/15/25 20:51 02/15/25 21:00 02/15/25 21:00 Temperature Temperature Source Pulse Rate 118 H 135 H Pulse Rate from SpO2 Sensor 122 H 120 H Respiratory Rate 21 21 Respiratory Effort / Characteristics Respiratory Depth Respiratory Pattern Blood Pressure 121/86 Blood Pressure Mean 106 Pulse Oximetry 95 94 Oxygen Delivery Method Sepsis Recent Fever Within 48 Hours Sepsis New/Unexplained Change in Mental Status Sepsis Action Taken by Nursing 02/15/25 21:00 02/15/25 21:00 02/15/25 21:00 Temperature Temperature Source Pulse Rate Pulse Rate from SpO2 Sensor Respiratory Rate Respiratory Effort / Characteristics Respiratory Depth Respiratory Pattern Blood Pressure 121/86 121/86 121/86 Blood Pressure Mean 106 106 106 Pulse Oximetry Oxygen Delivery Method Sepsis Recent Fever Within 48 Hours Sepsis New/Unexplained Change in Mental Status Sepsis Action Taken by Nursing 02/15/25 21:00 02/15/25 21:12 02/15/25 21:19 Temperature Temperature Source Pulse Rate 129 H 124 H Pulse Rate from SpO2 Sensor 126 H Respiratory Rate 22 Respiratory Effort / Characteristics Respiratory Depth Respiratory Pattern Blood Pressure 121/86 121/86 Blood Pressure Mean 106 Pulse Oximetry 96 Oxygen Delivery Method Sepsis Recent Fever Within 48 Hours Sepsis New/Unexplained Change in Mental Status Sepsis Action Taken by Nursing 02/15/25 21:21 02/15/25 21:30 02/15/25 21:30 Temperature Temperature Source Pulse Rate 140 H 119 H Pulse Rate from SpO2 Sensor 136 H 115 H Respiratory Rate 20 17 Respiratory Effort / Characteristics Respiratory Depth Respiratory Pattern Blood Pressure 147/73 H Blood Pressure Mean 97 Pulse Oximetry 95 92 Oxygen Delivery Method Sepsis Recent Fever Within 48 Hours Sepsis New/Unexplained Change in Mental Status Sepsis Action Taken by Nursing 02/15/25 21:30 02/15/25 21:30 02/15/25 21:30 Temperature Temperature Source Pulse Rate Pulse Rate from SpO2 Sensor Respiratory Rate Respiratory Effort / Characteristics Respiratory Depth Respiratory Pattern Blood Pressure 147/73 H 147/73 H 147/73 H Blood Pressure Mean 97 97 97 Pulse Oximetry Oxygen Delivery Method Sepsis Recent Fever Within 48 Hours Sepsis New/Unexplained Change in Mental Status Sepsis Action Taken by Nursing 02/15/25 21:30 02/15/25 21:42 02/15/25 21:51 Temperature Temperature Source Pulse Rate 125 H 122 H Pulse Rate from SpO2 Sensor 120 H 112 H Respiratory Rate 19 21 Respiratory Effort / Characteristics Respiratory Depth Respiratory Pattern Blood Pressure 147/73 H Blood Pressure Mean 97 Pulse Oximetry 95 96 Oxygen Delivery Method Sepsis Recent Fever Within 48 Hours Sepsis New/Unexplained Change in Mental Status Sepsis Action Taken by Nursing 02/15/25 22:00 02/15/25 22:00 02/15/25 22:00 Temperature Temperature Source Pulse Rate 133 H Pulse Rate from SpO2 Sensor 130 H Respiratory Rate 16 Respiratory Effort / Characteristics Respiratory Depth Respiratory Pattern Blood Pressure 115/86 115/86 Blood Pressure Mean 102 102 Pulse Oximetry 94 Oxygen Delivery Method Sepsis Recent Fever Within 48 Hours Sepsis New/Unexplained Change in Mental Status Sepsis Action Taken by Nursing 02/15/25 22:00 02/15/25 22:00 02/15/25 22:00 Temperature Temperature Source Pulse Rate Pulse Rate from SpO2 Sensor Respiratory Rate Respiratory Effort / Characteristics Respiratory Depth Respiratory Pattern Blood Pressure 115/86 115/86 115/86 Blood Pressure Mean 102 102 102 Pulse Oximetry Oxygen Delivery Method Sepsis Recent Fever Within 48 Hours Sepsis New/Unexplained Change in Mental Status Sepsis Action Taken by Nursing 02/15/25 22:12 02/15/25 22:21 02/15/25 22:21 Temperature Temperature Source Pulse Rate 124 H 114 H 120 H Pulse Rate from SpO2 Sensor 124 H 114 H Respiratory Rate 18 17 Respiratory Effort / Characteristics Respiratory Depth Respiratory Pattern Blood Pressure 115/86 Blood Pressure Mean Pulse Oximetry 94 97 Oxygen Delivery Method Sepsis Recent Fever Within 48 Hours Sepsis New/Unexplained Change in Mental Status Sepsis Action Taken by Nursing 02/15/25 22:30 02/15/25 22:35 02/15/25 22:42 Temperature Temperature Source Pulse Rate 113 H 120 H Pulse Rate from SpO2 Sensor 109 H Respiratory Rate 16 Respiratory Effort / Characteristics Respiratory Depth Respiratory Pattern Blood Pressure 147/73 H 149/104 H Blood Pressure Mean 121 Pulse Oximetry 94 Oxygen Delivery Method Sepsis Recent Fever Within 48 Hours Sepsis New/Unexplained Change in Mental Status Sepsis Action Taken by Nursing 02/15/25 22:42 02/15/25 22:42 02/15/25 22:42 Temperature Temperature Source Pulse Rate Pulse Rate from SpO2 Sensor Respiratory Rate Respiratory Effort / Characteristics Respiratory Depth Respiratory Pattern Blood Pressure 149/104 H 149/104 H 149/104 H Blood Pressure Mean 121 121 121 Pulse Oximetry Oxygen Delivery Method Sepsis Recent Fever Within 48 Hours Sepsis New/Unexplained Change in Mental Status Sepsis Action Taken by Nursing 02/15/25 22:42 02/15/25 22:42 02/15/25 22:45 Temperature Temperature Source Pulse Rate 127 H 123 H Pulse Rate from SpO2 Sensor 125 H Respiratory Rate 19 Respiratory Effort / Characteristics Respiratory Depth Respiratory Pattern Blood Pressure 149/104 H 149/104 H Blood Pressure Mean 121 Pulse Oximetry 96 Oxygen Delivery Method Sepsis Recent Fever Within 48 Hours Sepsis New/Unexplained Change in Mental Status Sepsis Action Taken by Nursing 02/15/25 22:51 02/15/25 23:00 02/15/25 23:00 Temperature Temperature Source Pulse Rate 121 H Pulse Rate from SpO2 Sensor 120 H Respiratory Rate 20 Respiratory Effort / Characteristics Respiratory Depth Respiratory Pattern Blood Pressure 128/90 128/90 Blood Pressure Mean 93 93 Pulse Oximetry 95 Oxygen Delivery Method Sepsis Recent Fever Within 48 Hours Sepsis New/Unexplained Change in Mental Status Sepsis Action Taken by Nursing 02/15/25 23:00 02/15/25 23:00 02/15/25 23:25 Temperature Temperature Source Pulse Rate 130 H 115 H 69 Pulse Rate from SpO2 Sensor 119 H Respiratory Rate 29 H Respiratory Effort / Characteristics Respiratory Depth Respiratory Pattern Blood Pressure 128/90 Blood Pressure Mean Pulse Oximetry 95 Oxygen Delivery Method Sepsis Recent Fever Within 48 Hours Sepsis New/Unexplained Change in Mental Status Sepsis Action Taken by Nursing 02/15/25 23:30 Temperature Temperature Source Pulse Rate 68 Pulse Rate from SpO2 Sensor Respiratory Rate 15 Respiratory Effort / Characteristics Respiratory Depth Respiratory Pattern Blood Pressure 135/70 Blood Pressure Mean 91 Pulse Oximetry 92 Oxygen Delivery Method Room Air Sepsis Recent Fever Within 48 Hours Sepsis New/Unexplained Change in Mental Status Sepsis Action Taken by Nursing Laboratory Data Attestation: I reviewed the patient's lab results. 02/15/25 20:00 02/16/25 05:57 Lab Results 02/15/25 02/15/25 Range/Units 20:00 20:54 WBC 6.65 (4.8-10.8) K/ul RBC 4.58 L (4.70-6.10) M/uL Hgb 13.7 L (14.0-18.0) g/dL Hct 41.3 L (42.0-52.0) % MCV 90.2 (80.0-100.0) fL MCH 29.9 (25.0-34.0) pg MCHC 33.2 (32.0-36.0) g/dL RDW Std Deviation 45.8 (36.4-46.3) fL RDW Coeff of Crystal 13.9 (11.5-14.5) % Plt Count 251 (130-400) K/uL MPV 9.9 (9.4-12.4) fL Immature Gran % (Auto) 0.3 % Neut % (Auto) 57.6 % Lymph % (Auto) 27.7 % [place] % (Auto) 8.4 % Eos % (Auto) 4.2 % Baso % (Auto) 1.8 % Neut # (Auto) 3.83 (1.40-6.50) K/uL Lymph # (Auto) 1.84 (1.20-3.40) K/uL [place] # (Auto) 0.56 (0.11-0.59) K/uL Eos # (Auto) 0.28 (0.00-0.50) K/uL Baso # (Auto) 0.12 (0.00-0.20) K/uL Immature Gran # (Auto) 0.02 (0.01-0.20) K/uL PT Cancelled 10.6 INR Cancelled 1.0 APTT Cancelled 28 PTT Ratio Cancelled 1.0 Sodium 140 (136-145) mmol/L Potassium TNP 4.3 Chloride 111 H (98-107) mmol/L Carbon Dioxide 24 (21-32) mmol/L Anion Gap 5 (3-11) BUN 35 H (6-23) mg/dl Creatinine 1.95 H (0.6-1.4) mg/dl Est Cr Clr Drug Dosing 34.6 ml/min eGFR 33.93 BUN/Creatinine Ratio 17.9 (10-20) Glucose 136 H (70-99(Fasting)) mg/dl Calcium 8.9 (8.6-10.3) mg/dl Phosphorus 4.0 (2.5-4.9) mg/dl Magnesium 2.3 (1.7-2.4) mg/dl Total Bilirubin 0.4 (0.2-1.0) mg/dl AST TNP 18 ALT 18 (7-52) U/L Alkaline Phosphatase 98 (34-104) U/L Troponin I High Sens 6.8 (0-20) pg/ml Total Protein 7.0 (6.0-8.3) gm/dl Albumin 3.8 (3.4-5.0) gm/dl Globulin 3.2 (2.5-4.0) gm/dl Albumin/Globulin Ratio 1.2 (0.9-2) TSH 2.519 (0.300-4.500) uIu/ml Administered Medications Dronedarone (Dronedarone Hcl 400 Mg Tab) 400 mg PO AMHS [facility] Stop: 03/18/25 08:59 Last Admin: 02/16/25 09:01 Dose: 400 mg Documented By: CY Fluticasone/Vilanterol (Fluticasone/Vilanterol 100/25mcg 14 Puffs/Inhaler) 1 puffs INH DAILY JASWANT Stop: 03/18/25 08:59 Last Admin: 02/16/25 09:02 Dose: 1 puffs Documented By: CY Gabapentin (Gabapentin 300 Mg Cap) 300 mg PO TID [facility] Stop: 03/18/25 08:59 Last Admin: 02/16/25 13:55 Dose: 300 mg Documented By: Admin: 02/16/25 09:01 Dose: 300 mg Documented By: CY Levothyroxine Sodium (Levothyroxine Sodium 50 Mcg Tablet) 50 mcg PO DAILYBB [facility] Stop: 03/18/25 06:29 Last Admin: 02/16/25 05:47 Dose: 50 mcg Documented By: BILL Metoprolol Succinate (Metoprolol Succ 25mg Ext Rel Tab) 75 mg PO DAILY@1700 [facility] Stop: 03/18/25 16:59 Last Admin: 02/16/25 16:41 Dose: 75 mg Documented By: CY Midodrine (Midodrine Hcl 2.5 Mg Tab) 5 mg PO QAM [facility] Stop: 03/18/25 08:59 Last Admin: 02/16/25 09:47 Dose: Not Given Documented By: CY Miscellaneous (Isradipine 2.5 Mg Capsule)~Order Awaiting Action) 1 each N/A QS [facility] Stop: 03/18/25 07:59 Last Admin: 02/16/25 16:41 Dose: Not Given Documented By: Admin: 02/16/25 09:01 Dose: Not Given Documented By: CY Umeclidinium [place] (Umeclidinium [place] 62.5mcg/Blister 7 Puffs/Inhaler) 1 puffs INH QAM [facility] Stop: 03/18/25 08:59 Last Admin: 02/16/25 09:01 Dose: 1 puffs Documented By: CY Discontinued Medications Apixaban (Apixaban 5 Mg Tablet) 5 mg PO BID [facility] Stop: 03/18/25 08:59 Last Admin: 02/16/25 09:01 Dose: 5 mg Documented By: CY Hydralazine HCl (Hydralazine Hcl 20 Mg/Ml Vial) 10 mg IV NOW STA Stop: 02/16/25 11:43 Last Admin: 02/16/25 12:00 Dose: 10 mg Documented By: CY Sodium Chloride (Nss) 500 mls @ 999 mls/hr IV .Q31M ONE Stop: 02/15/25 20:41 Last Infusion: 02/15/25 21:14 Dose: Infused Documented By: danielle Admin: 02/15/25 20:20 Dose: 999 mls/hr Documented By: GEOVANNY Sodium Chloride (Nss) 500 mls @ 999 mls/hr IV .Q31M ONE Stop: 02/15/25 21:46 Last Infusion: 02/15/25 22:27 Dose: Infused Documented By: danielle Admin: 02/15/25 21:23 Dose: 999 mls/hr Documented By: danielle Menthol (Cough Drop (Sugar Free) Jordan 24 Jordan/1 Box) Confirm Administered Dose 24 jordan BUCCAL .STK-MED ONE Stop: 02/16/25 09:07 Last Admin: 02/16/25 09:48 Dose: 24 jordan Documented By: CY Menthol (Cough Drop (Sugar Free) Jordan 24 Jordan/1 Box) 1 jordan BUCCAL ONCE ONE Stop: 02/16/25 09:08 Last Admin: 02/16/25 09:08 Dose: 1 jordan Documented By: CY Metoprolol Tartrate (Metoprolol Tartrate 1 Mg/Ml Vial) 5 mg IV NOW STA Stop: 02/15/25 21:17 Last Admin: 02/15/25 21:19 Dose: 5 mg Documented By: danielle Metoprolol Tartrate (Metoprolol Tartrate 1 Mg/Ml Vial) 5 mg IV NOW STA Stop: 02/15/25 22:06 Last Admin: 02/15/25 22:21 Dose: 5 mg Documented By: danielle Metoprolol Tartrate (Metoprolol Tartrate 1 Mg/Ml Vial) 5 mg IV NOW STA Stop: 02/15/25 22:21 Last Admin: 02/15/25 22:45 Dose: 5 mg Documented By: danielle Imaging Data Radiologist's Impression: Chest X-Ray 02/15/25 19:49 Exam(s): XR CXR 1 VIEW EXAM: XR Chest, 1 View CLINICAL HISTORY: Reason for exam: Chest pain, nonspecific. TECHNIQUE: Frontal view of the chest. COMPARISON: No relevant prior studies available. FINDINGS: There is a cardiac pacemaker in left chest wall distal is the right atrium right ventricle. Lungs: Mild peribronchial thickening of the central lower lobe bronchi. Increased interstitial opacities in the lower lobes. No consolidation. Pleural space: Unremarkable. No pneumothorax. Heart: Unremarkable. No cardiomegaly. Mediastinum: Unremarkable. Normal mediastinal contour. Bones/joints: Unremarkable. No acute fracture. IMPRESSION: Bronchitis, which may be of infectious or inflammatory etiologies. No consolidation or pleural effusion. Electronically signed by: Gina Glass MD 02/15/25 23:24 PM Discharge Plan Visit Data Chief Complaint: Cardiac Assessment Stated Complaint: HEART PROBLEMS, HYPERTENSION, PAST HOUR ED Provider: Maciej Carey Discharge Problem: Atrial fibrillation with RVR, Acute on chronic renal insufficiency, On apixaban therapy Patient Disposition: Admitted As Inpatient Condition: Serious Discharge Instructions Interventions: ED Discharge Assessment Last Done: 02/16/25 01:51
[2025-02-15] MEDS: METOPROLOL TARTRATE 1 MG/ML VIAL IV STA ×3 (21:19→22:45)
[2025-02-15 21:20] LABS: Potassium 4.3 mmol/L (3.5-5.1)
[2025-02-15 21:41] LABS: INR 1.0 (0.9-1.1); Partial Thromboplastin Time 28 Seconds (21-31); Prothrombin Time 10.6 Seconds (9.0-12.0)
--- NOTE | 2025-02-15 23:24 | XRay Report ---
Exam(s): XR CXR 1 VIEW EXAM: XR Chest, 1 View CLINICAL HISTORY: Reason for exam: Chest pain, nonspecific. TECHNIQUE: Frontal view of the chest. COMPARISON: No relevant prior studies available. FINDINGS: There is a cardiac pacemaker in left chest wall distal is the right atrium right ventricle. Lungs: Mild peribronchial thickening of the central lower lobe bronchi. Increased interstitial opacities in the lower lobes. No consolidation. Pleural space: Unremarkable. No pneumothorax. Heart: Unremarkable. No cardiomegaly. Mediastinum: Unremarkable. Normal mediastinal contour. Bones/joints: Unremarkable. No acute fracture. IMPRESSION: Bronchitis, which may be of infectious or inflammatory etiologies. No consolidation or pleural effusion. Electronically signed by: Gina Glass MD 02/15/25 23:24 PM
--- NOTE | 2025-02-16 00:12 | History & Physical Report ---
Date of Service February 16, 2025 Assessment & Plan (1) Atrial fibrillation with RVR: (2) Acute kidney injury superimposed on CKD: Plan 79-year-old male PMHx A-fib on apixaban, s/p cardiac pacemaker, HTN, HLP, GERD, COPD, CKD, BPH, LGI bleed, and nocturnal hypoxemia presenting for his heart racing and elevated blood pressure readings day of arrival. Evaluation reveals mild anemia at 13.7/41.3, electrolytes grossly unremarkable exception of creatinine 1.95 and BUN 35. Troponin and TSH WNL. CXR with bronchitis that may be infectious versus inflammatory but no consolidation noted. EKG did reveal A- fib with RVR in the 140s, at time of admission he has converted to normal sinus and is rate controlled. Received multiple doses of IV beta-karma. Admission for further management. #A-fib with RVR H/o Afib; on apixaban, isradipine, dronedarone, metoprolol succinate at home. Follows with cardiology, most recent visit 07/03/2024. Received 3 doses Lopressor 5mg IV in ED. Converted to NSR just prior to admission. Currently NSR, asymptomatic, and pressures appropriate. No present illness, no medication adjustments, no other triggers. Notes occasional changes in activity level trigger his Afib, but does not recall any recent changes. Admission for further evaluation and observation of rhythm. - CBC very mild anemia H/H 13.7/41.3; CMP K 4.3, Cr 1.95, BUN 35; Trop 6.8; TSH 2.519 - BMP am - EKG initially Afib with RVR ~ 144 bpm - monitor on tele - CXR bronchitis, no consolidation or effusions -- w/o respiratory symptoms - Echo last completed 2017 - pending repeat - Continue home medications - Consider cardiology consult - none placed at time of admission #STEPHANIE superimposed on CKD H/o CKD, baseline Cr 1.6. Follows with nephrology, most recent visit 11/14/2024. Also with BPH, follows with urology. Received 1L NSS in ED. - Cr 1.95, BUN 35 - BMP am - UA pending - Bladder scan w/ PVR pending - Received IVF in ED, deferred further IVF at time of admission - recheck BMP am and adjust as medically appropriate #COPD- CXR bronchitis; without respiratory symptoms; Wixela, Spiriva - continue #HLD- Atorvastatin - continue #BPH- Dutasteride - continue #GERD- Famotidine - continue #Neuropathy- Gabapentin - continue #Hypothyroidism- TSH WNL at admission; Levothyroxine - continue #Orthostatic hypotension- Midodrine - continue #Nocturnal hypoxemia- H/o O2 levels dropping during rest/sleeping, no O2 at baseline - O2 prn to maintain 89-93% Dispo: Admit, PCU VTE Prophylaxis: On Apixaban - continue This document was dictated utilizing [employer]. Please excuse any grammatical errors that may be secondary to use of this software. Admission and Anticipated Discharge Date Admission Date: 02/15/2025 History of Present Illness Chief Complaint: Fast heart beat Primary Care Provider: Ignacio Brewer 79-year-old male PMHx A-fib on apixaban, s/p cardiac pacemaker, HTN, HLP, GERD, COPD, CKD, BPH, LGI bleed, and nocturnal hypoxemia presenting for his heart racing and elevated blood pressure readings day of arrival. Patient reports that he often times can tell whenever he is in A-fib, but his rates normally range from 90s to 110s. However, on the day of arrival, he says that he was sitting watching the news when he noticed that his heart felt like it was racing. He took his pulse oximeter and placed on his finger, noting that his heart rate was in the 120s to 140s. Additionally, his watch noted that he was in a fast rhythm and to consult his doctor. He took his blood pressure at that time 2 and notes that his systolic ranged between 130s to 150s. He could feel fluttering in his chest, and some occasional shortness of breath during the episodes of the fast heartbeat, all of which have resolved at present. He reports that approximately 4 days ago he had 1 to 2 days of coughing, no sputum production or other ill like symptoms to include rhinorrhea, sore throat, fever, headaches, or congestion. He did not feel dizzy or presyncopal. He notes that sometimes whenever he changes his duration of exercise, for example going from sedentary to more intense exercise or vice versa, his A-fib will sometimes act up. He is without any present symptoms. Denies chest pain, SOB, palpitations, abdominal pain, N/V/D/C, numbness/tingling, URI symptoms, LUTS, edema, weakness, syncope, or falls. ED evaluation reveals CBC without leukocytosis or leukopenia, H&H 13.7/41.3; PT/INR WNL; CMP chloride 111, BUN 35, creatinine 1.95, glucose 136; magnesium 2.3, phosphorus 4; troponin 6.8; TSH 2.519; CXR bronchitis may be infectious or inflammatory, no consolidation or pleural effusions; EKG A-fib with RVR at 144 bpm.; Provided with 1L NSS and Lopressor 5 mg IV x [address] see Dr[address] Archibald's attestation for adjustments/additions to treatment plan. Allergies Allergy/AdvReac Type Severity Reaction Status Date / Time No Known Allergies Allergy Verified 01/29/25 13:26 Home Medications Medication Instructions Recorded Confirmed Type atorvastatin 40 mg tablet 40 mg PO HS 09/22/18 02/15/25 History levothyroxine 50 mcg tablet 50 mcg PO QAM 09/22/18 02/15/25 History metoprolol succinate 50 mg 75 mg PO QPM 06/06/24 02/15/25 History tablet,extended release 24 hr (Toprol XL) midodrine 2.5 mg tablet 5 mg PO QAM 11/15/24 02/15/25 History Flutter Valve #1 ea 01/04/25 02/15/25 Rx famotidine 20 mg tablet 40 mg PO HS 01/08/25 02/16/25 History gabapentin 300 mg capsule 300 mg PO TID 01/08/25 02/15/25 History compressor, for nebulizer #1 ea 01/23/25 02/15/25 Rx nebulizer accessories #1 ea 01/23/25 02/15/25 Rx cholecalciferol (vitamin D3) 50 50 mcg PO HS 02/15/25 02/15/25 History mcg (2,000 unit) tablet (Vitamin D3) doxycycline hyclate 20 mg tablet 20 mg PO AMHS 02/15/25 02/15/25 History dutasteride 0.5 mg capsule 0.5 mg PO HS 02/15/25 02/15/25 History isradipine 2.5 mg capsule 2.5 mg PO QPM 02/15/25 02/15/25 History midodrine 2.5 mg tablet 2.5 mg PO .Q AFTERNOON PRN 02/15/25 02/15/25 History Hypotension tiotropium bromide 18 mcg capsule 18 mcg inhalation QAM 02/15/25 02/15/25 History with inhalation device (Spiriva with HandiHaler) dronedarone 400 mg tablet (Multaq) 400 mg PO AMHS 02/16/25 02/16/25 History fluticasone 250 mcg-salmeterol 50 1 inh inhalation BID 02/16/25 02/16/25 History mcg/dose blistr powdr for inhalation (Wixela Inhub) fluticasone propionate 50 1 spray intranasal QAM 02/16/25 02/16/25 History mcg/actuation nasal spray,suspension apixaban 2.5 mg tablet (Eliquis) 2.5 mg PO BID #0 tabs 02/17/25 Rx Past Med/Surg History Problem List (Updated 02/16/25 @ 16:49 by Maciej Carey MD) On apixaban therapy (Acute) Acute on chronic renal insufficiency (Acute) Acute kidney injury superimposed on CKD Back problem Emphysema lung Mass of right lower extremity Colon polyp Cardiac pacemaker Nocturnal hypoxemia COVID-19 (Acute) Vitamin D deficiency Constipation Acute GI bleeding (Acute) LGI bleed Atrial fibrillation Atrial flutter with rapid ventricular response Hypothyroidism Hyperlipidemia Chest pain (Chronic) Dyspnea Tobacco abuse COPD (chronic obstructive pulmonary disease) 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, stage II (mild) (Chronic) Hypertension (Chronic) Encounter for pre-operative examination Hx of cardiac pacemaker (Chronic) Atrial fibrillation with RVR (Acute) Medical History BPH (benign prostatic hyperplasia) GERD (gastroesophageal reflux disease) Anemia Temporomandibular joint disorder Peripheral neuropathy Tachycardia Chronic obstructive pulmonary disease "MILD" Surgical History History of anesthesia reaction WAS TOLD "I WAS HARD TO SEDATE DURING COLONOSCOPY 15 YEARS AGO" H/O hand surgery LEFT H/O knee surgery "MULTIPLE LEFT KNEE SURGERY" Fusion of spine LUMBAR History of colonoscopy History of herniorrhaphy x2 History of tooth extraction History of tonsillectomy History of nasal septoplasty History of cardiac cath NO STENTS Family History Father Hypertension Stroke Mother Stroke Other No significant family history Social History Smoking Status: Former smoker Tobacco Type: Cigarettes Age Started Using Tobacco: 14; Age Quit Using Tobacco: 73; packs per day: 2; Second Hand Exposure: No; Do You Dip or Chew Tobacco: No; Hx Alcohol Use: Yes Hx Substance Use: No Preferred Language: [place]ib[place]ian Communication Ability: Effective Visual Impairment: No Limitations Hearing Ability: Normal Laboratory Apparatus Glass Blower Required: No Beliefs That Will Affect Care: None marital status: Current Living Situation: Spouse current occupational status: retired How many Children do You have: 4 Feels Safe at Home: Yes Diet: regular caffeine: Yes (1 coffee daily) during the past year weight has: remained stable Dental Care, Regularly: Yes Physical Activity Frequency: Does not Exercise Seatbelt Use: always Do you think of yourself as: straight/heterosexual Gender Identity: Male Assistive Devices: Cane and Wheelchair Review of Systems Review of Systems: All systems reviewed & are unremarkable except as noted in Subjective Physical Exam Physical Exam: General: No acute distress Skin: Warm and dry Head: Normocephalic, atraumatic Eyes: PERRL, conjunctivae clear, sclera non-icteric ENT: External ear and ear canal without swelling; nose atraumatic; good dentition, tongue normal appearance, pharynx normal Neck: Supple, no LAD Cardio: RRR, no M/G/R, S1 and S2 normal Resp: No respiratory distress, Lungs CTA in all lobes bilaterally, no wheezes, rales, or rhonchi Abdomen: Soft, symmetric, nontender; No masses or hepatosplenomegaly; Bowel sounds normoactive MSK: No deformities; pulses palpable and equal; trace pitting edema BLE to mid calf. Neuro: Awake, alert; Sensation intact bilaterally; CN grossly intact Psych: Appropriate mood and affect; good judgement and insight. Results & Data Results & Data Vital Signs (Past 12 Hours) Vital Signs Temp Pulse Resp BP Pulse Ox O2 Del Method 02/15/25 23:30 68 15 135/70 92 Room Air 02/15/25 23:25 69 02/15/25 23:00 115 H 128/90 02/15/25 23:00 130 H 29 H 95 02/15/25 23:00 128/90 02/15/25 23:00 128/90 02/15/25 22:51 121 H 20 95 02/15/25 22:45 123 H 149/104 H 02/15/25 22:42 127 H 19 96 02/15/25 22:42 149/104 H 02/15/25 22:42 149/104 H 02/15/25 22:42 149/104 H 02/15/25 22:42 149/104 H 02/15/25 22:42 149/104 H 02/15/25 22:35 120 H 147/73 H 02/15/25 22:30 113 H 16 94 02/15/25 22:21 120 H 17 97 02/15/25 22:21 114 H 115/86 02/15/25 22:12 124 H 18 94 02/15/25 22:00 115/86 02/15/25 22:00 115/86 02/15/25 22:00 115/86 02/15/25 22:00 115/86 02/15/25 22:00 115/86 02/15/25 22:00 133 H 16 94 02/15/25 21:51 122 H 21 96 02/15/25 21:42 125 H 19 95 02/15/25 21:30 147/73 H 02/15/25 21:30 147/73 H 02/15/25 21:30 147/73 H 02/15/25 21:30 147/73 H 02/15/25 21:30 147/73 H 02/15/25 21:30 119 H 17 92 02/15/25 21:21 140 H 20 95 02/15/25 21:19 124 H 121/86 02/15/25 21:12 129 H 22 96 02/15/25 21:00 121/86 02/15/25 21:00 121/86 02/15/25 21:00 121/86 02/15/25 21:00 121/86 02/15/25 21:00 121/86 02/15/25 21:00 135 H 21 94 02/15/25 20:51 118 H 21 95 02/15/25 20:42 147 H 25 H 96 02/15/25 20:31 127/85 02/15/25 20:31 127/85 02/15/25 20:31 127/85 02/15/25 20:31 127/85 02/15/25 20:31 127/85 02/15/25 20:30 134 H 17 92 02/15/25 20:21 125 H 20 94 02/15/25 20:15 126 H 19 91 02/15/25 20:15 113/88 02/15/25 20:15 113/88 02/15/25 20:15 113/88 02/15/25 20:15 126 H 19 113/88 95 02/15/25 20:09 133 H 02/15/25 19:46 36.9 C 138 H 18 115/70 95 Room Air Laboratory Results 02/15/25 02/15/25 20:54 20:00 WBC 6.65 RBC 4.58 L Hgb 13.7 L Hct 41.3 L MCV 90.2 MCH 29.9 MCHC 33.2 RDW Std Deviation 45.8 RDW Coeff of Crystal 13.9 Plt Count 251 MPV 9.9 Immature Gran % (Auto) 0.3 Neut % (Auto) 57.6 Lymph % (Auto) 27.7 Lassen % (Auto) 8.4 Eos % (Auto) 4.2 Baso % (Auto) 1.8 Neut # (Auto) 3.83 Lymph # (Auto) 1.84 Lassen # (Auto) 0.56 Eos # (Auto) 0.28 Baso # (Auto) 0.12 Immature Gran # (Auto) 0.02 PT 10.6 Cancelled INR 1.0 Cancelled APTT 28 Cancelled PTT Ratio 1.0 Cancelled Sodium 140 Potassium 4.3 TNP Chloride 111 H Carbon Dioxide 24 Anion Gap 5 BUN 35 H Creatinine 1.95 H Est Cr Clr Drug Dosing 34.6 eGFR 33.93 BUN/Creatinine Ratio 17.9 Glucose 136 H Calcium 8.9 Phosphorus 4.0 Magnesium 2.3 Total Bilirubin 0.4 AST 18 TNP ALT 18 Alkaline Phosphatase 98 Troponin I High Sens 6.8 Total Protein 7.0 Albumin 3.8 Globulin 3.2 Albumin/Globulin Ratio 1.2 TSH 2.519 Diagnostic Findings Chest X-Ray 02/15/25 19:49 Exam(s): XR CXR 1 VIEW EXAM: XR Chest, 1 View CLINICAL HISTORY: Reason for exam: Chest pain, nonspecific. TECHNIQUE: Frontal view of the chest. COMPARISON: No relevant prior studies available. FINDINGS: There is a cardiac pacemaker in left chest wall distal is the right atrium right ventricle. Lungs: Mild peribronchial thickening of the central lower lobe bronchi. Increased interstitial opacities in the lower lobes. No consolidation. Pleural space: Unremarkable. No pneumothorax. Heart: Unremarkable. No cardiomegaly. Mediastinum: Unremarkable. Normal mediastinal contour. Bones/joints: Unremarkable. No acute fracture. IMPRESSION: Bronchitis, which may be of infectious or inflammatory etiologies. No consolidation or pleural effusion. Electronically signed by: Gina Glass MD 02/15/25 23:24 PM Medications Administered 1L NSS Lopressor 5 mg IV x 3 ECG Additional Comments: A-fib with RVR 144 bpm, QRS 88, QT/QTc 312/43, PRT*/15/146 Code Status & VTE Plan Code Status Full VTE Prophylaxis Plan VTE Prophylaxis will be ordered: Yes Supervising Physician Co-Signing Physician Notes Attending addendum: I have physically seen this patient, have supervised the LAI's activities, and agree with the H&P unless as otherwise noted. Assessment and Plan: The patient is a 79-year-old male with past medical history including A-fib on apixaban, status post cardiac pacemaker, hypertension, hyperlipidemia, GERD, COPD, CKD, BPH, lower GI bleed, and nocturnal hypoxemia. He presented to the emergency department with palpitations and elevated blood pressure readings at home. EKG showed atrial fibrillation with RVR in the 140s, that converted to normal sinus rhythm at the time of admission and was rate controlled after receiving Lopressor 5 mg IV x 3. Atrial fibrillation with RVR- The patient will be admitted to telemetry for serial cardiac enzymes, serial EKG's, cardiac rhythm monitoring and a 2-D echocardiogram with Dopplers. Continue apixaban, isradipine, DuoNeb 0, metoprolol succinate. Status post Lopressor 5 mg IV x 3 in the ED Converted from A-fib with RVR to normal sinus rhythm while in the ED Acute kidney injury superimposed on CKD- Creatinine 1.95 on admission, with base 1.6- Status post 1 L normal saline bolus from the ED Follow urinalysis urine culture sensitivity Bladder scan with PVR Repeat BMP in a.m. COPD- Continue Wixela and Spiriva Hyperlipidemia Atorvastatin Check a fasting lipid panel BPH continue dutasteride GERD- Continue famotidine Remaining orders and notations as noted PG Care Time/CCT Total # of Minutes Spent Total Time Spent with Patient: Total time spent is greater than 50% in coordination of care (as documented) at patient's floor/unit and/or counseling patient: Coding Level of Care Code 32849 INT INP/OBS CARE 3/75MIN Diagnoses Atrial fibrillation with RVR I48.91 Acute kidney injury superimposed on CKD N17.9; N18.9
[2025-02-16] MEDS ORDERED: ONDANSETRON INJ 2 MG/ML 2 ML VIAL IV PRN (02:49)
[2025-02-16] MEDS ORDERED: ACETAMINOPHEN 325 MG TAB PO PRN (02:49)
[2025-02-16] MEDS ORDERED: POLYETHYLENE (MIRALAX) 17 GM PACK PO PRN (02:49)
[2025-02-16] MEDS ORDERED: MELATONIN 3 MG TAB PO PRN (02:49)
[2025-02-16] MEDS: LEVOTHYROXINE SODIUM 50 MCG TABLET PO SCH (05:47)
[2025-02-16 06:18] LABS: Appearance Urine Clear (Clear); Glucose Urine UA Negative (Negative)
[2025-02-16 06:52] LABS: Anion Gap 6.0 (3-11); Blood Urea Nitrogen 35.0 mg/dl (6-23); Calcium 8.8 mg/dl (8.6-10.3); Carbon Dioxide 23.0 mmol/L (21-32); Chloride 114.0 mmol/L (98-107); Creatinine Clr Calc Pharmacy 42.6 ml/min; Glucose 93.0 mg/dl (70-99(Fasting)); Potassium 4.7 mmol/L (3.5-5.1); Sodium 143.0 mmol/L (136-145)
[2025-02-16] MEDS: DRONEDARONE HCL 400 MG TAB PO SCH (09:01)
[2025-02-16] MEDS: UMECLIDINIUM BROMIDE 62.5MCG/BLISTER 7 PUFFS/INHALER INH SCH (09:01)
[2025-02-16] MEDS: APIXABAN 5 MG TABLET PO SCH (09:01)
[2025-02-16] MEDS: GABAPENTIN 300 MG CAP PO SCH (09:01)
[2025-02-16] MEDS: FLUTICASONE/VILANTEROL 100/25MCG 14 PUFFS/INHALER INH SCH (09:02)
[2025-02-16] MEDS: COUGH DROP (SUGAR FREE) LOZ 24 LOZ/1 BOX BUCCAL ONE ×2 (09:08→09:48)
[2025-02-16 09:29] LABS: T4 Free Thyroxine 0.84 ng/dl (0.61-1.60)
[2025-02-16] MEDS: MIDODRINE HCL 2.5 MG TAB PO SCH (09:47)
[2025-02-16] MEDS ORDERED: Nursing to Pharmacy Communication SCH (12:45)
--- NOTE | 2025-02-16 13:17 | Hospitalist Progress Note ---
Date of Service February 16, 2025 Assessment & Plan (1) Atrial fibrillation with RVR: Plan: Fortunately he converted to normal sinus rhythm with IV metoprolol. Continue oral metoprolol (2) Acute kidney injury superimposed on CKD: Plan: Improving with IV fluids. Serial labs. Monitor urine output (3) Hypertension: Plan: He required a dose of IV hydralazine today, February 16. Blood pressure has improved. Will follow (4) COPD (chronic obstructive pulmonary disease): Plan: Stable. Continue current medical management Plan Hopeful discharge to home tomorrow, February 17 Admission and Anticipated Discharge Date Admission Date: February 15, 2025 Subjective Alert and oriented. No distress. He has converted to normal sinus rhythm with intravenous metoprolol administered on admission. He has required intravenous hydralazine for elevated blood pressure however. Free T3 and free T4 levels are ordered and pending. Awaiting cardiac echo results today, February 16. Troponin levels are not significantly elevated. Creatinine improved to 1.5. Review of Systems 2 Review of Systems: Constitutionalno fever or chills ENTno blurred vision, no double vision, no epistaxis, no sore throat Respiratoryno cough, no wheezing, no shortness of breath Cardiacno palpitations, no chest pain, no syncope Demetrio nausea, vomiting, diarrhea, melena, hematochezia GUno urinary retention, no urinary incontinence, no dysuria, no hematuria Musculoskeletalno joint pain, no muscle tenderness Skinno bruising, no rashes, no pruritus Neurono isolated weakness, no paresthesia, no weakness Psychno depression, no anxiety Physical Exam 2 Physical Exam: General-alert and oriented x3, no fever, no chills HEENT-head atraumatic and normocephalic, pupils equal and reactive to light, extraocular muscles intact Neck-no lymphadenopathy or thyromegaly, trachea midline Chest-clear to auscultation. No rales, wheezing or rhonchi Cardiac-regular rate and rhythm, normal S1 and S2 Abdomen-normal bowel sounds, no hepatosplenomegaly Extremities-no cyanosis, clubbing, or edema Neuro-cranial nerves II through XII intact, motor and sensory function within normal limits, strength symmetrical, no focal deficits Psych-normal affect, normal mood Results & Data Results & Data Vital Signs (Past 12 Hours) Vital Signs Temp Pulse Pulse Pulse Resp BP BP 02/16/25 13:00 74 144/74 H 11/14/25 11:14 36.6 C 66 20 02/16/25 08:00 02/16/25 07:26 36.4 C L 61 19 02/16/25 03:30 02/16/25 02:55 36.6 C 18 02/16/25 01:30 63 13 112/62 BP Pulse Ox O2 Del Method 02/16/25 13:00 02/16/25 11:14 193/89 H 94 Room Air 02/16/25 08:00 Room Air 02/16/25 07:26 175/75 H 94 Room Air 02/16/25 03:30 170/69 H 02/16/25 02:55 190/82 H 96 Room Air 02/16/25 01:30 90 Room Air Laboratory Results 02/15/25 20:00 02/16/25 05:57 PG Care Time/CCT Total # of Minutes Spent Total Time Spent with Patient: Total time spent is greater than 50% in coordination of care (as documented) at patient's floor/unit and/or counseling patient: Coding Level of Care Code 27405 SUB INP/OBS CARE 3/50MIN Diagnoses Atrial fibrillation with RVR I48.91 Acute kidney injury superimposed on CKD N17.9; N18.9 Hypertension I10 COPD (chronic obstructive pulmonary disease) J44.9
[2025-02-16] MEDS: METOPROLOL SUCC 25MG EXT REL TAB PO SCH (16:41)
--- NOTE | 2025-02-16 16:58 | XCELERA ---
[id number]
[2025-02-16] MEDS: FAMOTIDINE 20 MG TAB ONE ×2 (19:49→20:20)
[2025-02-16 20:11] VITALS: RESP 17
--- NOTE | 2025-02-16 20:13 | Electrocardiogram Report ---
Test Reason : Blood Pressure : */* mmHG Vent. Rate : 144 BPM Atrial Rate : * BPM P-R Int : * ms QRS Dur : 88 ms QT Int : 312 ms P-R-T Axes : * 15 146 degrees QTcB Int : 483 ms Atrial fibrillation with rapid ventricular response Septal infarct , age undetermined Marked ST abnormality, possible inferior subendocardial injury Abnormal ECG When compared with ECG of 18-Jun-2022 15:10, Atrial fibrillation has replaced Electronic atrial pacemaker Vent. rate has increased by [address] now depressed in Inferior leads Inverted T waves have replaced nonspecific T wave abnormality in Lateral leads Confirmed by Ethan Curry ([id number]) on 02/16/2025 8:12:59 PM Referred By: REFERRED SELF Confirmed By: Ethan Curry
[2025-02-16] MEDS: APIXABAN 2.5 MG TAB PO SCH (20:21)
[2025-02-16] MEDS: ATORVASTATIN 40 MG TAB PO SCH (20:21)
[2025-02-16] MEDS: FINASTERIDE 5 MG TAB PO SCH (20:22)
[2025-02-16] MEDS: FAMOTIDINE 40 MG TABLET PO SCH (20:22)
[2025-02-16] MEDS ORDERED: METOPROLOL SUCC 25MG EXT REL TAB PO SCH (21:00)
[2025-02-17 07:53] VITALS: PULSE 66; TEMP 98.6; O2SAT 93
--- NOTE | 2025-02-17 08:04 | Electrocardiogram Report ---
Test Reason : Blood Pressure : */* mmHG Vent. Rate : 61 BPM Atrial Rate : 61 BPM P-R Int : 210 ms QRS Dur : 92 ms QT Int : 404 ms P-R-T Axes : * -7 45 degrees QTcB Int : 406 ms Atrial-paced rhythm with prolonged AV conduction Abnormal ECG When compared with ECG of 15-Feb-2025 19:57, (unconfirmed) Electronic atrial pacemaker has replaced Atrial fibrillation Vent. rate has decreased by 83 bpm Criteria for Septal infarct are no longer Present ST no longer depressed in Inferior leads ST no longer depressed in Lateral leads Confirmed by Ethan Curry ([id number]) on 02/17/2025 8:04:12 AM Referred By: REFERRED SELF Confirmed By: Ethan Curry
--- NOTE | 2025-02-17 10:18 | Discharge Summary ---
Discharge Summary Date of Service February 17, 2025 Principal Dx & Hospital Course #1 = Principal Diagnosis (1) Atrial fibrillation with RVR: Fortunately he converted to normal sinus rhythm with IV metoprolol. Continue oral metoprolol (2) Acute kidney injury superimposed on CKD: Resolved with IV fluids. Serial labs. Monitor urine output (3) Hypertension: He required a dose of IV hydralazine on February 16 and a dose of amlodipine today, February 17. He takes israpadine at home in the evening which we will continue at discharge.. Blood pressure has improved. Will follow (4) COPD (chronic obstructive pulmonary disease): Stable. Continue current medical management Plan Home todayFebruary 17 Admission HPI Per Admitting Provider 79-year-old male PMHx A-fib on apixaban, s/p cardiac pacemaker, HTN, HLP, GERD, COPD, CKD, BPH, LGI bleed, and nocturnal hypoxemia presenting for his heart racing and elevated blood pressure readings day of arrival. Patient reports that he often times can tell whenever he is in A-fib, but his rates normally range from 90s to 110s. However, on the day of arrival, he says that he was sitting watching the news when he noticed that his heart felt like it was racing. He took his pulse oximeter and placed on his finger, noting that his heart rate was in the 120s to 140s. Additionally, his watch noted that he was in a fast rhythm and to consult his doctor. He took his blood pressure at that time 2 and notes that his systolic ranged between 130s to 150s. He could feel fluttering in his chest, and some occasional shortness of breath during the episodes of the fast heartbeat, all of which have resolved at present. He reports that approximately 4 days ago he had 1 to 2 days of coughing, no sputum production or other ill like symptoms to include rhinorrhea, sore throat, fever, headaches, or congestion. He did not feel dizzy or presyncopal. He notes that sometimes whenever he changes his duration of exercise, for example going from sedentary to more intense exercise or vice versa, his A-fib will sometimes act up. He is without any present symptoms. Denies chest pain, SOB, palpitations, abdominal pain, N/V/D/C, numbness/tingling, URI symptoms, LUTS, edema, weakness, syncope, or falls. ED evaluation reveals CBC without leukocytosis or leukopenia, H&H 13.7/41.3; PT/INR WNL; CMP chloride 111, BUN 35, creatinine 1.95, glucose 136; magnesium 2.3, phosphorus 4; troponin 6.8; TSH 2.519; CXR bronchitis may be infectious or inflammatory, no consolidation or pleural effusions; EKG A-fib with RVR at 144 bpm.; Provided with 1L NSS and Lopressor 5 mg IV x [address] see Dr[address] Archibald's attestation for adjustments/additions to treatment plan. Discharge Exam General-alert and oriented x3, no fever, no chills HEENT-head atraumatic and normocephalic, pupils equal and reactive to light, extraocular muscles intact Neck-no lymphadenopathy or thyromegaly, trachea midline Chest-clear to auscultation. No rales, wheezing or rhonchi Cardiac-regular rate and rhythm, normal S1 and S2 Abdomen-normal bowel sounds, no hepatosplenomegaly Extremities-no cyanosis, clubbing, or edema Neuro-cranial nerves II through XII intact, motor and sensory function within normal limits, strength symmetrical, no focal deficits Psych-normal affect, normal mood Discharge Plan Discharge Items Patient Disposition: Home - Self-Care Reason For Visit: AFIB, RVR Discharge Diagnosis: Paroxysmal atrial fibrillation with rapid ventricular rate, acute on chronic kidney disease stage III Condition on Discharge: Good Activity: Resume your previous activity Non-emergency contact: Primary Care Provider Call non-emergency contact if: your symptoms worsen Follow-up/Referrals: Ignacio Brewer [Primary Care Provider] - Diet: Regular and Heart Healthy Addtl Attending Provider Instructions: All medications remain the same. See primary care provider or technology manager within 1 week or as soon as possible Pending Studies at Discharge: No Stand-Alone Forms: My [employer], Smoking Cessation Medications and DC Order Prescriptions: New Eliquis 2.5 mg Tablet 2.5 mg PO BID Qty: 0 0RF Continued (DME) compressor, for nebulizer Device See Rx Instructions .Route Qty: 1 0RF Rx Instructions: As directed (DME) nebulizer accessories Misc See Rx Instructions .Route Qty: 1 0RF Rx Instructions: As directed famotidine 20 mg tablet 40 mg PO HS gabapentin 300 mg capsule 300 mg PO TID metoprolol succinate [Toprol XL] 50 mg tablet extended release 24 hr 75 mg PO QPM midodrine 2.5 mg tablet 5 mg PO QAM Rx Instructions: do not give last dose of day after 6PM or within 4 hrs of bedtime (DME) Flutter Valve Device See Rx Instructions .Route Qty: 1 0RF Rx Instructions: 4 times per day atorvastatin 40 mg Tablet 40 mg PO HS levothyroxine 50 mcg Tablet 50 mcg PO QAM isradipine 2.5 mg capsule 2.5 mg PO QPM dutasteride 0.5 mg capsule 0.5 mg PO HS midodrine 2.5 mg Tablet 2.5 mg PO .Q AFTERNOON PRN (Reason: Hypotension) Rx Instructions: do not give last dose of day after 6PM or within 4 hrs of bedtime doxycycline hyclate 20 mg Tablet 20 mg PO AMHS cholecalciferol (vitamin D3) [Vitamin D3] 50 mcg (2,000 unit) Tablet 50 mcg PO HS tiotropium bromide [Spiriva with HandiHaler] 18 mcg capsule, w/inhalation wilma ce 18 mcg INHALATION QAM Rx Instructions: 1 cap = 2 puffs fluticasone propion-salmeterol [Wixela Inhub] 250-50 mcg/dose Blister With Device 1 inh INHALATION BID fluticasone propionate [Flonase] 50 mcg/actuation [place],Suspension 1 spray INTRANASAL QAM Rx Instructions: administer into each nostril Multaq 400 mg Tablet 400 mg PO AMHS Rx Instructions: must administer with a meal/food Discontinued Eliquis 5 mg tablet 5 mg PO BID Discharge Orders: Discharge Order (Routine); Ordered 02/17/25 Ordered By: Freddie Kline Admission Data Admit Date/Time: 02/15/25 23:58 Attending Provider: Freddie Kline Admit Provider: Silvino Archibald Primary Care Provider: Ignacio Brewer Other Providers: Silvino Archibald Hospital Stay Data Consultations 02/15/25 23:43 ED Decision to Admit Stat Pending Results Patient Have Any Pending Studies at Discharge: No Discharge Instructions Given to Patient (Per Discharging Provider) All medications remain the same. See primary care provider or technology manager within 1 week or as soon as possible Total Time Total Time Spent Total Time Spent (In Minutes): 45 minutes. Total time included patient exam, discharge planning, medication reconciliation. Coding Level of Care Code 24596 INP/OBS DISCH >30 MIN Diagnoses Atrial fibrillation with RVR I48.91 Acute kidney injury superimposed on CKD N17.9; N18.9 Hypertension I10 COPD (chronic obstructive pulmonary disease) J44.9
[2025-02-17 10:30] VITALS: BP 172/77
== END 2025-02-17 11:22 | disposition home or self-care (01) | DRG 309 ==
LOC: ED 19:37 → SUATTDRO 23:58 → 2S 23:58